=== PATIENT | male | born 1960 | race Two or more races ===

== ENCOUNTER 2024-09-25 09:30 | Outpatient (RCR) | payer MEDICARE, SELFPAY ==
--- NOTE | 2024-09-04 11:12 | PT.OIERPT ---
PT OP Initial Eval Patient Information Outpatient Physical Therapy Treatment Date: 09/04/24 Visit Reasons: Cervicalgia Medical Diagnosis: M54.2 Treatment Dx #1: neck pain Start of Care: 09/04/24 Date of Onset: 5 months ago Smoking Status Smoking Status: Never smoker Initial Assessment Subjective: Pt is 64 yr old male who reports neck pain x5 months. Increased pain with turning head to the R it feels stiff and pain is worse at night. 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 Pt would benefit from skilled therapy to reduce pain and has fair rehab potential. Eval followed by HEP printout. Short Term and Security And Privacy Consultant Goals 1. Ind with HEP 2. Decreased TTP of R levator scap mm from mod to none 3. Improved cervical rotation to the R to at least 75% without pain 4. Tolerate work duties x4 hrs with <=3/10 pain Treatment Plan 90 day POC ? 1. Manual therapy ? 2. Therex ? 3. Modalities as indicated, moist heat, ice, estim, mechanical traction Frequency and Duration: 1-2x a week for 12 visits plus evaluation Certification Dates: 09/04/24 to 12/04/24 Procedure Charges OP PT Eval Mod Complex 30 minutes: Yes
--- NOTE | 2024-09-10 14:27 | PT.ODAYNRPT ---
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
--- NOTE | 2024-09-17 09:49 | PT.ODAYNRPT ---
PT Outpatient Daily Note OP Daily Note Outpatient Physical Therapy Treatment Date: 09/17/24 Visit Reasons: Cervicalgia Subjective: Pt reports neck felt better after he left PT but then after doing his regular activities symptoms aggravate. Objective: Please see flow sheet for ther ex list. Assessment: Performed STM pt tolerated well. Plan: Continue with pOC. Length of Time (minutes) of Treatment: 30 Minutes RENTAL CLERK TOOL AND EQUIPMENT Service Modifier Method I: Divide the number of min of care provided by the RENTAL CLERK TOOL AND EQUIPMENT/WORKFORCE PLANNING ANALYST by the total min of care provided then multiply by 100. If greater than 11 percent modifier is required. Method II: Divide the total time of care provided to patient by 10 (round to the nearest whole number) and add 1 min. to set the minimum time requirement. If treatment total was 60 min., then 10% of 6 min PT CQ modifier applied: CQ Modifier applied Procedure Charges Therapeutic Exercise 30 minutes: Yes
--- NOTE | 2024-09-25 10:25 | PTNOTE_ITS ---
PT Outpatient Daily Note OP Daily Note Outpatient Physical Therapy Treatment Date: 09/25/24 Visit Reasons: Cervicalgia Subjective: Pt reports neck is progressing but slowly, pt notices he can sleep better now with less neck pain less tossing and turning. Objective: Please see flow sheet for ther ex list. Assessment: Pt tolerated STM with no complaints, no TTP. Plan: Progress as tolerated. Length of Time (minutes) of Treatment: 30 Minutes RETAIL RESET MERCHANDISER Service Modifier Method I: Divide the number of min of care provided by the RETAIL RESET MERCHANDISER/DIVYA by the total min of care provided then multiply by 100. If greater than 11 percent modifier is required. Method II: Divide the total time of care provided to patient by 10 (round to the nearest whole number) and add 1 min. to set the minimum time requirement. If treatment total was 60 min., then 10% of 6 min PT CQ modifier applied: CQ Modifier applied Procedure Charges Therapeutic Exercise 30 minutes: Yes
== END 2024-09-29 23:59 | disposition home or self-care (01) ==
LOC: CPTX 09:30
PROVIDERS: PCP Physician Assistant Medical; Referring Provider Physician Assistant Medical; Visit Provider Physician Assistant Medical
DX: M54.2 Cervicalgia (principal); I10 Essential (primary) hypertension; E11.9 Type 2 diabetes mellitus without complications
CPT/HCPCS: 97110; 97162

== ENCOUNTER 2024-10-30 08:00 | Outpatient (RCR) | payer MEDICARE, SELFPAY ==
--- NOTE | 2024-10-06 09:16 | PT.ODAYNRPT ---
PT Outpatient Daily Note OP Daily Note Outpatient Physical Therapy Treatment Date: 10/06/24 Visit Reasons: neck pain Subjective: Pt reports neck has been feeling better, notices he is sleeping better and can turn head with less difficulty when driving. Objective: Please see flow sheet for ther ex list. Assessment: Pt presents in clinic with improved symptoms allowing for intervention progression. Plan: Continue with pOC. Length of Time (minutes) of Treatment: 30 Minutes Procedure Charges Therapeutic Exercise 30 minutes: Yes
--- NOTE | 2024-10-08 08:49 | PT.ODAYNRPT ---
PT Outpatient Daily Note OP Daily Note Outpatient Physical Therapy Treatment Date: 10/08/24 Visit Reasons: neck pain Subjective: Pt reports he is sleeping better and notices he can move his neck better., Objective: Please see flow sheet for ther ex list. Assessment: Progressing interventions as tolerated, report of symptom improvement allowing for progression of interventions. Plan: Continue with pOC. Length of Time (minutes) of Treatment: 30 Minutes Procedure Charges Therapeutic Exercise 30 minutes: Yes
--- NOTE | 2024-10-15 08:33 | PT.ODAYNRPT ---
PT Outpatient Daily Note OP Daily Note Outpatient Physical Therapy Treatment Date: 10/15/24 Visit Reasons: neck pain Subjective: [place] a sharp pain while working when he looked down this weekend Objective: See F/S for therex Mechanical traction C/S x7' at 14 lbs MHP x5' C/S Assessment: Good demo of chin tucks and good response to traction Plan: Continue per POC Length of Time (minutes) of Treatment: 30 Minutes Procedure Charges Therapeutic Exercise 30 minutes: Yes
--- NOTE | 2024-10-17 15:31 | PT.ODAYNRPT ---
PT Outpatient Daily Note OP Daily Note Outpatient Physical Therapy Treatment Date: 10/17/24 Visit Reasons: neck pain Subjective: Pt reports neck is better the days he comes into therapy but when looking down or after work notices pain is aggravated. Objective: Please see flow sheet for ther ex list. Assessment: Pt presents in clinic with c/o neck pain, slow progress with interventions due to pt pain response. Plan: Continue with poC. Length of Time (minutes) of Treatment: 30 Minutes Procedure Charges Therapeutic Exercise 30 minutes: Yes
--- NOTE | 2024-10-22 09:05 | PT.ODAYNRPT ---
PT Outpatient Daily Note OP Daily Note Outpatient Physical Therapy Treatment Date: 10/22/24 Visit Reasons: neck pain Subjective: Pt reports neck is doing better, [place] and had some pain with looking down but pain did not linger. Objective: Please see flow sheet for ther ex list. Assessment: Pt reports progress with neck symptoms allowing for interventions progression. Plan: Continue with poC. Length of Time (minutes) of Treatment: 30 Minutes Procedure Charges Therapeutic Exercise 30 minutes: Yes
--- NOTE | 2024-10-28 08:47 | PT.ODAYNRPT ---
PT Outpatient Daily Note OP Daily Note Outpatient Physical Therapy Treatment Date: 10/28/24 Visit Reasons: neck pain Subjective: Pt reports neck is doing ok, feels about the same. Objective: Please see flow sheet for ther ex list. Assessment: Pt responds to mechanical traction with decrease c/o pain of c/s. Plan: Pt has 3 visits remaining. Length of Time (minutes) of Treatment: 30 Minutes Procedure Charges Therapeutic Exercise 30 minutes: Yes
--- NOTE | 2024-10-30 09:09 | PT.ODAYNRPT ---
PT Outpatient Daily Note OP Daily Note Outpatient Physical Therapy Treatment Date: 10/30/24 Visit Reasons: neck pain Subjective: Overall less neck pain but it feels tight and he hears crunching when he turns the head Objective: See F/S for therex Mechanical traction C/S x7' at 14 lbs MHP x5' C/S MT: STM suboccipitals x5' Assessment: Good demo of chin tucks and good response to traction Plan: Continue per POC Length of Time (minutes) of Treatment: 30 Minutes Procedure Charges Therapeutic Exercise 30 minutes: Yes
== END 2024-10-30 23:59 | disposition home or self-care (01) ==
LOC: CPTX 08:00
PROVIDERS: PCP Physician Assistant Medical; Referring Provider Physician Assistant Medical; Visit Provider Physician Assistant Medical
DX: M54.2 Cervicalgia (principal); I10 Essential (primary) hypertension; E11.9 Type 2 diabetes mellitus without complications
CPT/HCPCS: 97110

== ENCOUNTER 2024-11-05 08:00 | Outpatient (RCR) | payer MEDICARE, SELFPAY ==
--- NOTE | 2024-11-03 10:47 | PT.ODAYNRPT ---
PT Outpatient Daily Note OP Daily Note Outpatient Physical Therapy Treatment Date: 11/03/24 Visit Reasons: Neck pain Subjective: Overall less neck pain but it feels tight and he hears crunching when he turns the head Objective: See F/S for therex Mechanical traction C/S x7' at 14 lbs MHP x5' C/S Assessment: Good demo of chin tucks and good response to traction Plan: REassess Length of Time (minutes) of Treatment: 30 Minutes Procedure Charges Therapeutic Exercise 30 minutes: Yes
--- NOTE | 2024-11-05 08:42 | PT.ODAYNRPT ---
PT Outpatient Daily Note OP Daily Note Outpatient Physical Therapy Treatment Date: 11/05/24 Visit Reasons: Neck pain Subjective: Pt reports neck pain has reduced and notices the mobility in his neck has improved. Objective: Please see flow sheet for ther ex list. Assessment: Pt presents in clinic with improved pain and c/s ROM WNL. At this time pt has completed 12/12 visits and will be discharged to continue with HEP independently. Plan: DC Length of Time (minutes) of Treatment: 30 Minutes Procedure Charges Therapeutic Exercise 30 minutes: Yes
--- NOTE | 2024-11-06 11:44 | PTNOTE_ITS ---
PT OP Progress/Discharge Note Date of Service: 11/06/24 Progress Note/DC Note Progress Note/Discharge Note: DC Note Patient Information Visit Reasons: Neck pain Service Continue Service or Discharge: Discharge Discharge Date: 11/06/24 Status Subjective: See LEARNING DISABLED TEACHER documentation Objective: Based on his last visit with me: C/S rotation: B rotation: 75% of full TTP: min to none of C/S paraspinals and R levator scap mm No charges, no Rx, this is a D/C note since Pt was treated by Cintia Clayton PTA for his last visit. Assessment: Pt attended 12/12 Rx sessions with good progress with therapy goals. He has decreased TTP of R levator scap mm from mod to min which almost meets the goal of no TTP. He has improved C/S rotation to the R to 75% with variable pain depending on the day. He is tolerating work duties x4 hrs with less neck pain to meet that goal. Plan: D/C with HEP
== END 2024-11-30 23:59 | disposition home or self-care (01) ==
LOC: CPTX 08:00
PROVIDERS: PCP Physician Assistant Medical; Referring Provider Physician Assistant Medical; Visit Provider Physician Assistant Medical
DX: M54.2 Cervicalgia (principal); I10 Essential (primary) hypertension; E11.9 Type 2 diabetes mellitus without complications
CPT/HCPCS: 97110

== ENCOUNTER 2024-12-05 08:50 | Day surgery (SDC) | payer MEDICARE, SELFPAY ==
--- NOTE | 2024-12-04 07:00 | EKG_ITS ---
[facility] Test Date: 2024-12-04 Pat Name: MOISES FAIRBANKS Department: Room: - Gender: Male Brush Polisher: KENDRA : 1960 Requested By: Juan Antonio Carlin Order Number: [id number] Reading MD: Juan Antonio Carlin Measurements Intervals [place] Rate: 83 P: 24 [place]: 179 QRS: -55 QRSD: 105 T: 3 QT: 357 QTc: 420 Interpretive Statements SINUS RHYTHM LEFT ANTERIOR FASCICULAR BLOCK [QRS AXIS <= -45, QR IN I, RS IN II] POSSIBLE ANTERIOR MYOCARDIAL INFARCTION , PROBABLY OLD [30 ms Q WAVE IN V3/V4, OR R < 0.2 mV IN V4] Compared to ECG 05/05/2020 14:39:33 No significant changes /store/S0/[id number].pdf
[2024-12-04 07:13] VITALS: BMI 33.8
[2024-12-04 09:07] LABS: Collection Type, Urine Clean Catch
[2024-12-04 09:33] LABS: Alanine Aminotransferase 24 U/L (10-49); Albumin, Serum 4.7 gm/dL (3.4-4.8); Albumin/Globulin Ratio 1.7 (1.2-2.2); Alkaline Phosphatase 109 U/L (46-116); Anion Gap 11 (7-16); Aspartate Amino Transferase 29 U/L (0-34); BUN/Creatinine Ratio 11 Ratio (12-20); Bilirubin,Total 0.4 mg/dL (0.3-1.2); Blood Urea Nitrogen 9 mg/dL (9-23); Calcium 10.1 mg/dL (8.3-10.6); Calcium (Corrected) 10.1 mg/dL (8.5-10.1); Carbon Dioxide 25.8 mMol/L (20.0-31.0); Chloride 106 mMol/L (98-107); Creatinine (Component) 0.8 mg/dL (0.6-1.3); Estimated Creatinine Clearance 85.2 mL/min (>60); Globulin 2.8 gm/dL (2.3-3.5); Glucose 142 mg/dL (74-106); Osmolality,Calculated 285 (275-295); Potassium 4.3 mMol/L (3.4-5.1); Sodium 143 mMol/L (136-145); Total Protein 7.5 gm/dL (5.7-8.2); eGFR > 60 See Note
[2024-12-04 09:51] LABS: Basophils # (Auto) 0.1 Thou/mm3 (0.0-0.2); Basophils % (Auto) 1 % (0-2.5); Eosinophils # (Auto) 0.2 Thou/mm3 (0.0-0.5); Eosinophils % (Auto) 3 % (0-10); Hematocrit 46.4 % (41.0-53.0); Hemoglobin 15.8 g/dL (13.5-16.0); Immature Granulocytes Auto 0.06 Thou/mm3 (0.00-0.00); Lymphocytes # (Auto) 2.8 Thou/mm3 (1.0-4.8); Lymphocytes % (Auto) 35 % (10-50); Mean Corpuscular HGB Conc 34.1 g/dl (31.0-37.0); Mean Corpuscular Hemoglobin 32.8 pg (25.0-35.0); Mean Corpuscular Volume 97 fL (80-100); Monocytes # (Auto) 0.9 Thou/mm3 (0.0-0.8); Monocytes % (Auto) 11 % (0-12); Neutrophils # (Auto) 3.9 Thou/mm3 (1.8-7.7); Neutrophils % (Auto) 49 % (37-80); Nucleated Red Blood Cell # 0.00 Thou/mm3 (0.00-0.00); Nucleated Red Blood Cell % 0 /100 WBC (0); Platelet Count 213 Thou/mm3 (140-440); RDW Standard Deviation 43.4 fL (35.1-43.9); Red Blood Count 4.81 Miln/mm3 (4.50-5.90); White Blood Count 7.9 Thou/mm3 (3.8-10.6)
[2024-12-04 09:54] LABS: Bilirubin,Urine Negative (Negative); Blood,Urine Negative (Negative); Clarity,Urine Clear (Clear/Hazy); Color,Urine Yellow (Lt Yel-Yel); Glucose, Urine 4+ (Negative); Ketones,Urine Negative (Negative); Leukocyte Esterase,Urine Negative (Negative); Nitrite,Urine Negative (Negative); PH,Urine 6.0 (5.0-7.0); Protein,Urine Trace (Neg - Trace); RBC,Urine 2 /hpf (0-3); Specific Gravity,Urine 1.027 (1.001-1.035); Squamous Epithelial Cell,Urine < 1 /hpf (0-5); Urobilinogen,Urine Negative mg/dL (0.0-1.0); WBC,Urine 1 /hpf (0-5)
--- NOTE | 2024-12-04 13:44 | SUR.PREOP ---
Cardiac records and history reviewed with Dr Diaz.
--- NOTE | 2024-12-04 16:04 | ESHP_ITS ---
RE: MOISES FAIRBANKS : 1960 DATE OF ADMISSION: 12/05/2024 HISTORY OF PRESENT ILLNESS: A 64-year-old male who was referred to me with elevated PSA of 11.0, nocturia x2. Urinary flow is fair. No burning in the urine. No blood in the urine. No history of kidney stones. PAST SURGICAL HISTORY: Included cholecystectomy. SOCIAL HISTORY: The patient has 3 children. ALLERGIES: NONE KNOWN. PAST MEDICAL HISTORY: He has a history of diabetes mellitus and history of hypertension. HOME MEDICATIONS: He takes; 1. Metformin. 2. Jardiance. 3. Mounjaro. 4. Cholesterol. 5. Aspirin. 6. Losartan. PHYSICAL EXAMINATION: HEENT: Normal. NECK: Supple. LUNGS: Clear. CARDIOVASCULAR: Heart sounds are normal. ABDOMEN: Soft without any organomegaly. No guarding. No rigidity. EXTREMITIES: Normal. GENITOURINARY: Phallus is normal. Testes are down in scrotum. RECTAL: Revealed moderately enlarged smooth prostate without any nodules. IMPRESSION: 1. Prostatism. 2. Prostatic obstruction. 3. Elevated prostate-specific antigen of 11.0. 4. History of diabetes mellitus. 5. History of hypertension. PLAN: Cystoscopy and transrectal prostatic ultrasound with ultrasound-guided prostatic needle biopsy. Planned procedure, risks and complications have been discussed with the patient. The patient has understood them and agreed to proceed. Thank you very much for your kind referral. cc: [facility] DT: 14:48:31 TT: 16:02:00 Ref: [id number] - TID: [id number]
[2024-12-05 09:11] VITALS: BP 150/80; PULSE 71; RESP 20; TEMP 36.3; O2SAT 95; BMI 33.1
--- NOTE | 2024-12-05 09:35 | SUR.PREOP ---
Patient expressed gratitude for prayer before their procedure.
[2024-12-05 10:54] VITALS: BP 117/83; PULSE 68; RESP 14; TEMP 36.6; O2SAT 95
--- NOTE | 2024-12-05 10:54 | SUR.PHASEII ---
pt received from OR in recovery bay 2. pt awake and alert, breathing unlabored on nc 4l. v/s stable. report received Dr. Ugarte and Jaun SEAY.
[2024-12-05 11:00] VITALS: BP 122/72; PULSE 66; RESP 20; TEMP 36.5; O2SAT 95
--- NOTE | 2024-12-05 11:00 | XR_ITS ---
Examination: Transrectal prostate sonography Date and time: December 05, 2024 1031 hours INDICATIONS: Prostate biopsy by physician in the OR today TECHNIQUE AND FINDINGS: Transrectal sonographic images of the prostate for prostate biopsies by physician Prostate volume 57.42 cc IMPRESSION: Transrectal sonographic images of the prostate for prostate biopsies by physician
[2024-12-05 11:05] VITALS: BP 120/68; PULSE 67; RESP 20; TEMP 36.5; O2SAT 94
[2024-12-05 11:10] VITALS: BP 116/68; PULSE 64; RESP 20; TEMP 36.5; O2SAT 94
[2024-12-05 11:25] VITALS: BP 130/68; PULSE 62; RESP 20; TEMP 36.4; O2SAT 95
--- NOTE | 2024-12-05 11:35 | SUR.PHASEII ---
pt awake and alert, breathing unlabored on room air. v/s stable. pt able to ambulate to wheelchair with steady gait. d/c instructions given with Idania in room, all questions answered. pt d/c via wheelchair with all belongings.
--- NOTE | 2024-12-05 13:10 | ESOP_ITS ---
RE: MOISES FAIRBANKS : 1960 DATE OF OPERATION: 12/05/2024 PREOPERATIVE DIAGNOSES: Prostatism, prostatic obstruction, elevated PSA of 11.0. POSTOPERATIVE DIAGNOSES: Prostatism, prostatic obstruction, elevated PSA of 11.0. PROCEDURES PERFORMED: Cystoscopy, urethral dilatation, transrectal prostatic ultrasound with ultrasound-guided prostatic needle biopsy. ANESTHESIA: Monitored anesthesia by Dr. Ugarte. INDICATION: The patient is a 64-year-old male who was referred to sc with history of elevated PSA of 11.0. He has prostatism, nocturia x2 with slowing urinary stream. Rectally, he has a moderately sized prostate without any hard nodules. DESCRIPTION OF PROCEDURE: The patient was now scheduled to have cystoscopy and transrectal prostatic ultrasound with ultrasound-guided prostatic needle biopsy. Planned procedure, risks and complications have been discussed with the patient. The patient understood them and agreed to proceed. After the patient was brought to the operating table under adequate monitored anesthesia in dorsal lithotomy position, parts were prepped and draped in the usual fashion. Cystoscopy was then carried out, which revealed adequate urethral meatus. There is a mild bulbar urethral stricture, which was dilated. Prostatic urethra revealed moderately enlarged bilobed prostate. Left lobe is larger than right. Scope was introduced into the bladder. Residual urine is 5 ounces, yellow and clear and was sent for culture and sensitivity examination. There are no intravesical stones or tumors. Ureteral orifices are found to be normal in position close to the bladder neck. Scope was withdrawn. Urethra was dilated. The patient was then turned in left lateral position. Transrectal prostatic ultrasound was carried out. Biopsies were obtained from both lobes using ultrasound guidance. Prostatic volume was measured at 57.42 cubic cm. The patient tolerated the entire procedure well and left the room in good condition. DT: 11::45 TT: 13:09:00 Ref: [id number] - TID: [id number]
== END 2024-12-05 11:35 | disposition home or self-care (01) ==
PROVIDERS: Anesthesiology; PCP Family Medicine; Referring Provider Surgery; Visit Provider Surgery
PROC: 0TJB8ZZ Inspection of Bladder, Via Natural or Artificial Opening Endoscopic (ICD-10-PCS; CPT 52000; principal; 2024-12-05 11:00)
PROC: (CPT 55700; 2024-12-05 11:00)
DX: N40.1 Benign prostatic hyperplasia with lower urinary tract symptoms (principal); N13.8 Other obstructive and reflux uropathy; R35.1 Nocturia; R39.198 Other difficulties with micturition; Z01.810 Encounter for preprocedural cardiovascular examination; E11.9 Type 2 diabetes mellitus without complications; I10 Essential (primary) hypertension; Z90.49 Acquired absence of other specified parts of digestive tract; Z79.84 Long term (current) use of oral hypoglycemic drugs; Z79.899 Other long term (current) drug therapy; Z79.82 Long term (current) use of aspirin
CPT/HCPCS: 52281; 55700; 36415; 76942; 80053; 81001; 85025; 93005; A4217; A4649; J0694; J2250; J2704; J3010; J3490

== ENCOUNTER 2024-12-05 22:57 | Emergency (ER) | payer MEDICARE, SELFPAY ==
[2024-12-05 23:00] VITALS: BP 183/95; PULSE 99; RESP 17; TEMP 38.1; O2SAT 95; BMI 32.9
[2024-12-05 23:04] VITALS: PULSE 96; O2SAT 99
--- NOTE | 2024-12-05 23:31 | PD.EDRME ---
Rapid Medical Screening Exam [facility] Arrival date/time: 12/05/24 22:57 64M with history of HTN and DM presents to ED with 1 day of fevers/chills. Patient had a prostate biopsy today. Vital signs: Vital Signs Temperature 100.5 F H 12/05/24 23:00 Pulse Rate 99 12/05/24 23:00 Respiratory Rate 17 12/05/24 23:00 Blood Pressure 183/95 H 12/05/24 23:00 Pulse Oximetry (%) 95 12/05/24 23:00 Oxygen Delivery Method Room Air 12/05/24 23:00
[2024-12-05 23:51] LABS: Lactate (Lactic Acid) 1.1 mMol/L (0.4-2.0)
[2024-12-05 23:59] LABS: Basophils # (Auto) 0.0 Thou/mm3 (0.0-0.2); Basophils % (Auto) 0 % (0-2.5); Eosinophils # (Auto) 0.1 Thou/mm3 (0.0-0.5); Eosinophils % (Auto) 1 % (0-10); Hematocrit 41.5 % (41.0-53.0); Hemoglobin 14.0 g/dL (13.5-16.0); Immature Granulocytes Auto 0.04 Thou/mm3 (0.00-0.00); Lymphocytes # (Auto) 0.7 Thou/mm3 (1.0-4.8); Lymphocytes % (Auto) 5 % (10-50); Mean Corpuscular HGB Conc 33.7 g/dl (31.0-37.0); Mean Corpuscular Hemoglobin 32.6 pg (25.0-35.0); Mean Corpuscular Volume 97 fL (80-100); Monocytes # (Auto) 0.3 Thou/mm3 (0.0-0.8); Monocytes % (Auto) 2 % (0-12); Neutrophils # (Auto) 11.1 Thou/mm3 (1.8-7.7); Neutrophils % (Auto) 91 % (37-80); Nucleated Red Blood Cell # 0.00 Thou/mm3 (0.00-0.00); Nucleated Red Blood Cell % 0 /100 WBC (0); Platelet Count 152 Thou/mm3 (140-440); RDW Standard Deviation 44.1 fL (35.1-43.9); Red Blood Count 4.30 Miln/mm3 (4.50-5.90); White Blood Count 12.2 Thou/mm3 (3.8-10.6)
[2024-12-06 00:14] LABS: Collection Type, Urine Clean Catch; Squamous Epithelial Cell,Urine 0 /hpf (0-5)
[2024-12-06] MEDS: NAPROXEN 250 MG TABLET 500 MG PO (00:14)
[2024-12-06 00:20] LABS: Alanine Aminotransferase 26 U/L (10-49); Albumin, Serum 4.0 gm/dL (3.4-4.8); Albumin/Globulin Ratio 1.5 (1.2-2.2); Alkaline Phosphatase 74 U/L (46-116); Anion Gap 12 (7-16); Aspartate Amino Transferase 29 U/L (0-34); BUN/Creatinine Ratio 8 Ratio (12-20); Bilirubin,Total 0.9 mg/dL (0.3-1.2); Blood Urea Nitrogen 6 mg/dL (9-23); Calcium 9.1 mg/dL (8.3-10.6); Calcium (Corrected) 9.1 mg/dL (8.5-10.1); Carbon Dioxide 22.6 mMol/L (20.0-31.0); Chloride 105 mMol/L (98-107); Creatinine (Component) 0.8 mg/dL (0.6-1.3); Estimated Creatinine Clearance 84.0 mL/min (>60); Globulin 2.6 gm/dL (2.3-3.5); Glucose 126 mg/dL (74-106); Osmolality,Calculated 279 (275-295); Potassium 3.5 mMol/L (3.4-5.1); Procalcitonin 0.45 ng/ml (0.0-0.49); Sodium 140 mMol/L (136-145); Total Protein 6.6 gm/dL (5.7-8.2); eGFR > 60 See Note
[2024-12-06 00:27] LABS: Bilirubin,Urine Negative (Negative); Blood,Urine 3+ (Negative); Clarity,Urine Turbid (Clear/Hazy); Glucose, Urine 4+ (Negative); Ketones,Urine 2+ (Negative); Leukocyte Esterase,Urine Negative (Negative); Nitrite,Urine Negative (Negative); PH,Urine 6.5 (5.0-7.0); Protein,Urine 1+ (Neg - Trace); RBC,Urine 1991 /hpf (0-3); Specific Gravity,Urine 1.028 (1.001-1.035); Urobilinogen,Urine Negative mg/dL (0.0-1.0); WBC,Urine 28 /hpf (0-5)
[2024-12-06 00:28] LABS: Color,Urine Lt-Orange (Lt Yel-Yel); Culture Indicated,Urine Yes
--- NOTE | 2024-12-06 02:20 | PC.NURSE ---
PT INFORMED ME THAT HE IS LEAVING, HE FEELS BETTER NOW.
== END 2024-12-06 02:21 | disposition left against medical advice (07) ==
PROVIDERS: Physician Assistant; Emergency Provider Emergency Medicine; PCP Physician Assistant
DX: R50.9 Fever, unspecified (principal); I10 Essential (primary) hypertension; E11.9 Type 2 diabetes mellitus without complications; Z53.29 Procedure and treatment not carried out because of patient's decision for other reasons
CPT/HCPCS: 36415; 80053; 81001; 83605; 84145; 85025; 87086; 87400; 87811; 99283; A9270

== ENCOUNTER 2024-12-06 15:41 | Inpatient (IN) | payer MEDICARE, SELFPAY ==
[2024-12-06] VITALS (8 sets, daily range): BP systolic 132–157; BP diastolic 72–92; PULSE 102–133; RESP 19–35; TEMP 37.1–40.5; O2SAT 95–96; BMI 32.9
--- NOTE | 2024-12-06 17:22 | PD.EDRME ---
Rapid Medical Screening Exam [facility] Arrival date/time: 12/06/24 15:41 This is a 64M with history of HTN and DM presents to ED with 2 day of fevers/chills/feeling shaky. Patient had a prostate biopsy 2 days ago. Pt states he stopped drinking on December 03, 2024. Patient states he was an alcoholic. Patient had multiple shots a day along with multiple beers a day. Patient states that the only reason he stopped is because he had to have surgery. Patient now says that he would like to stop drinking. Patient states he feels very shaky he was having some chest pain and shortness of breath. Patient feels anxious. Patient also has a history of high blood pressure, diabetes, hyperlipidemia. I have greeted and performed a focused initial assessment of this patient. Initial appropriate labs ordered at this time. A comprehensive ED assessment and evaluation of the patient and analysis of all test and completion of medical decision making process will be conducted by additional ED provider. Chief Complaint: General Adult/Misc Complain Time Seen by Provider: 12/06/24 16:17 Vital signs: Vital Signs Temperature 99.3 F 12/06/24 16:02 Pulse Rate 125 H 12/06/24 16:02 Respiratory Rate 19 12/06/24 16:02 Blood Pressure 132/78 H 12/06/24 16:02 Pulse Oximetry (%) 95 12/06/24 16:02 Oxygen Delivery Method Room Air 12/06/24 16:02
--- NOTE | 2024-12-06 17:25 | XR_ITS ---
Examination: PA lateral chest 2 views Technique: Upright PA lateral chest 2 views Date and time: December 06, 2024, 1744 hrs., Comparison May 05, 2020. Indications: Fever chills beginning 2 days ago. Findings: Minimal prominence left ventricle. Mild prominent central pulmonary vasculature. No lobar pneumonia or pulmonary edema. Impression: No lobar pneumonia or pulmonary edema.
--- NOTE | 2024-12-06 17:25 | EKG_ITS ---
[facility] ([facility] Test Date: 2024-12-06 Pat Name: MOISES FAIRBANKS Department: Room: - Gender: Male Home Specialist: : 1960 Requested By: Kim Dinero Order Number: [id number] Reading MD: Kim Dinero Measurements Intervals [place] Rate: 124 P: 22 [place]: 163 QRS: -65 QRSD: 90 T: 29 QT: 323 QTc: 465 Interpretive Statements SINUS TACHYCARDIA LEFT ANTERIOR FASCICULAR BLOCK [QRS AXIS <= -45, QR IN I, RS IN II] POSSIBLE ANTERIOR MYOCARDIAL INFARCTION , PROBABLY OLD [30 ms Q WAVE IN V3/V4, OR R < 0.2 mV IN V4] Compared to ECG 12/04/2024 08:00:24 Sinus rhythm no longer present Myocardial infarct finding still present /store/S0/[id number]/[id number]
[2024-12-06 17:49] LABS: Basophils # (Auto) 0.0 Thou/mm3 (0.0-0.2); Basophils % (Auto) 0 % (0-2.5); Eosinophils # (Auto) 0.0 Thou/mm3 (0.0-0.5); Eosinophils % (Auto) 0 % (0-10); Hematocrit 45.8 % (41.0-53.0); Hemoglobin 15.6 g/dL (13.5-16.0); Immature Granulocytes Auto 0.04 Thou/mm3 (0.00-0.00); Lymphocytes # (Auto) 0.4 Thou/mm3 (1.0-4.8); Lymphocytes % (Auto) 5 % (10-50); Mean Corpuscular HGB Conc 34.1 g/dl (31.0-37.0); Mean Corpuscular Hemoglobin 32.8 pg (25.0-35.0); Mean Corpuscular Volume 96 fL (80-100); Monocytes # (Auto) 0.5 Thou/mm3 (0.0-0.8); Monocytes % (Auto) 5 % (0-12); Neutrophils # (Auto) 8.5 Thou/mm3 (1.8-7.7); Neutrophils % (Auto) 90 % (37-80); Nucleated Red Blood Cell # 0.00 Thou/mm3 (0.00-0.00); Nucleated Red Blood Cell % 0 /100 WBC (0); Platelet Count 148 Thou/mm3 (140-440); RDW Standard Deviation 44.9 fL (35.1-43.9); Red Blood Count 4.75 Miln/mm3 (4.50-5.90); White Blood Count 9.5 Thou/mm3 (3.8-10.6)
[2024-12-06 18:05] LABS: B-Type Natriuretic Peptide 129 pg/mL (0-100)
[2024-12-06 18:06] LABS: Alanine Aminotransferase 28 U/L (10-49); Albumin, Serum 4.6 gm/dL (3.4-4.8); Albumin/Globulin Ratio 1.5 (1.2-2.2); Alkaline Phosphatase 83 U/L (46-116); Anion Gap 12 (7-16); Aspartate Amino Transferase 28 U/L (0-34); BUN/Creatinine Ratio 5 Ratio (12-20); Bilirubin,Total 0.8 mg/dL (0.3-1.2); Blood Urea Nitrogen 5 mg/dL (9-23); Calcium 10.0 mg/dL (8.3-10.6); Calcium (Corrected) 10.0 mg/dL (8.5-10.1); Carbon Dioxide 23.8 mMol/L (20.0-31.0); Chloride 103 mMol/L (98-107); Creatinine (Component) 1.0 mg/dL (0.6-1.3); Estimated Creatinine Clearance 67.2 mL/min (>60); Globulin 3.0 gm/dL (2.3-3.5); Glucose 140 mg/dL (74-106); Osmolality,Calculated 276 (275-295); Potassium 3.8 mMol/L (3.4-5.1); Sodium 139 mMol/L (136-145); Total Protein 7.6 gm/dL (5.7-8.2); Troponin I < 0.002 ng/mL (0.0-0.045); eGFR > 60 See Note
[2024-12-06 18:11] LABS: Collection Type, Urine Voided
--- NOTE | 2024-12-06 18:23 | EDNOTE_ITS ---
ED General RME/HPI General Chief complaint: General Adult/Misc Complain Stated complaint: SHAKING TODAY, SEEN LAST NIGHT AND LEFT AMA Time Seen by Provider: 12/06/24 16:17 Arrival date/time: 12/06/24 15:41 RME / HPI RME / HPI narrative: 12/06/24 15:41 This is a 64M with history of HTN and DM presents to ED with 2 day of fevers/chills/feeling shaky. Patient had a prostate biopsy 2 days ago. Pt states he stopped drinking on December 03, 2024. Patient states he was an alcoholic. Patient had multiple shots a day along with multiple beers a day. Patient states that the only reason he stopped is because he had to have surgery. Patient now says that he would like to stop drinking. Patient states he feels very shaky he was having some chest pain and shortness of breath. Patient feels anxious. Patient also has a history of high blood pressure, diabetes, hyperlipidemia. I have greeted and performed a focused initial assessment of this patient. Initial appropriate labs ordered at this time. A comprehensive ED assessment a nd evaluation of the patient and analysis of all test and completion of medical decision making process will be conducted by additional ED provider. DR. CARRIZALES MAIN ED EVALUATION: 64 y/o male with Hx of Heavy Alcohol Use, BPH, HTN, Type II DM, and recent Prostate Biopsy presents to ED c/o all over shaking, chills, and fever x 2 days. Patient underwent biopsy 2 days ago and reports not consuming alcohol over the last 3 days. Patient was seen in ED last night, but left prior to receiving results. He received a call from his provider alerting him of an elevated WBC and advised patient to return to ED. Patient also admits that he did not take his antibiotics as prescribed. No other concerns or complaints expressed at this time. Related Data Home Medications ?Medication ?Instructions ?Recorded ?Confirmed aspirin 81 mg tablet 81 mg PO QDAY 05/07/2012/06 losartan 50 mg tablet 50 mg PO QDAY 05/07/2012/06 metformin 1,000 mg tablet 1,000 mg PO BID 05/07/2009/24 atorvastatin 20 mg tablet 20 mg PO DAILY 12/04/24 0909/24 empagliflozin 25 mg tablet 25 mg PO DAILY 12/04/2409/24 (Jardiance) tirzepatide 5 mg/0.5 mL 5 mg subcut QWEEK 12/04/24 0 12/06/24 subcutaneous pen injector (Sylvester) Previous Rx's ?Medication ?Instructions ?Recorded qdpovpqy-onc-zmrhy acid 0.4 1 tab PO QDAY 1 month #30 tabs 12/09/24 mg-lycopene 300 mcg-lutein 250 mcg tablet (Complete Multivitamin Adult 50 Plus) Allergies Allergy/AdvReac Type Severity Reaction Status Date / Time No Known Allergies Allergy Unknown Verified 12/06/24 15:46 Review of Systems Review of Systems Systems Reviewed: All systems reviewed, normal except as documented Past Medical History Past Medical History CARDIAC: Positive Cardiac Disorders, Myocardial Infarction (5 yrs ago), Hypercholesterolemia and Hypertension MUSCULOSKELETAL: Positive Musculoskeletal Disorders ENDOCRINE: Positive Endocrine Disorders and Diabetes Mellitus Type 2 OTHER HISTORY: Positive Hospitalization (surgery, Covid), Chicken Pox and Mumps Family History FAMILY HISTORY: Positive Family Psychiatric Problems, Family Cardiac Disorders, Family Cancer and Family Surgery Surgical History SURGICAL: Positive Cardiac Surgery, Angiogram (2019) and Abdominal Surgery Social History ALCOHOL: Current ALCOHOL FREQUENCY: 3 or More Drinks per Day ED Exam Narrative Physical exam: Generally the patient is tremulous and tachycardic but not hallucinating, eyes pupils equal round reactive to light, neck shows no bony deformity or tenderness, heart tachycardic rate with regular rhythm, lungs clear to auscultation equal bilaterally, abdomen soft nondistended nontender, skin is cool slightly moist without rash, neurologic exam shows the patient to be tremulous however [place] Coma Scale is 15. Course Course Course Narrative: CXR was ordered for determining the etiology of shortness of breath. Quality Measures none Orders Category Date Time Status Bedside COVID-19 Antigen Test NOW Care 12/06/24 22:23 Completed COVID-19 Screening Questionnaire NOW Care 12/06/24 22:22 Completed EKG (ED ONLY) *Do not use* NOW Care 12/06/24 17:25 Completed Insert IV NOW Care 12/06/24 18:28 Completed EKG (ED Only) Stat Exams 12/06/24 17:25 Draft XR chest 2V Stat Exams 12/06/24 17:25 Completed BNP [B-Type Natriuretic Peptide] Stat Lab 12/06/24 17:42 Completed Blood Culture (Lab) Stat Lab 12/06/24 20:46 Completed CBC Stat Lab 12/06/24 17:42 Completed Comprehensive Metabolic Panel Stat Lab 12/06/24 17:42 Completed Drug Screen,Urine Stat Lab 12/06/24 18:00 Completed Lactic Acid [Lactate (Lactic Acid)] Stat Lab 12/06/24 20:46 Completed Troponin I Stat Lab 12/06/24 17:42 Completed Urinalysis, C/S if Indicated Stat Lab 12/06/24 18:00 Completed Urine Culture Stat Lab 12/06/24 18:00 Completed Acetaminophen Tab [Tylenol Tab] Med 12/06/24 20:47 Discontinued 650 mg PO X1 ONE Diazepam Inj [Valium Inj] Med 12/06/24 18:23 Discontinued 10 mg IVP X1 ONE Diazepam Inj [Valium Inj] Med 12/06/24 19:28 Discontinued 10 mg IVP X1 ONE LORazepam [Ativan] Med 12/06/24 17:25 Discontinued 1 mg PO X1 ONE PHENobarbital Inj 130 mg Med 12/06/24 20:42 Discontinued Sodium Chloride 0.9% Flush [NS Flush] 12 ml IVP X1 PHENobarbital Inj 130 mg Med 12/06/24 21:14 Discontinued Sodium Chloride 0.9% Flush [NS Flush] 12 ml IVP X1 Sodium Chloride 0.9% 1000 ml [Ns] 1,000 ml Med 12/06/24 20:41 Discontinued IV 999 mls/hr Sodium Chloride 0.9% 1000 ml [Ns] 1,000 ml Med 12/06/24 22:08 Discontinued IV 999 mls/hr cefTRIAXone/D5w 1gm IV premix [Rocephin/D5w 1gm IV Med 12/06/24 18:23 Discontinued premix] 1 gm in 50 ml IV X1 Vital Signs Vital signs: Vital Signs Temperature 99.3 F 12/06/24 16:02 Pulse Rate 125 H 12/06/24 16:02 Respiratory Rate 19 12/06/24 16:02 Blood Pressure 132/78 H 12/06/24 16:02 Pulse Oximetry (%) 95 12/06/24 16:02 Oxygen Delivery Method Room Air 12/06/24 16:02 Discharge Plan Plan Patient Disposition: Admit Acute Care w/in Hospital Patient condition on transfer: Stable MDM Narrative [facility] hospital course: Scribe Attestation: I, Snehal Grossman, am scribing for and in the presence of Dr. Carrizales. Provider Notation: Although this document has been carefully reviewed, there may still be some phonetic and other typographical errors. These errors are purely grammatical due to imperfections in the software program and should not be construed in any way to compromise the substance of the patient's medical care during this visit. Differential diagnosis, alcohol withdrawal, delirium tremens, bacteremia, sepsis Patient just underwent a prostate biopsy yesterday. He has been on prophylactic antibiotics. He has had shaking chills over the last 1 to 2 days. He has been off of alcohol for the last 3 days and normally drinks rather heavily on a regular every day basis according to the patient. Patient spiked a fever of 104 degrees here in the emergency room. Septic workup was initiated. Lactic acid level was not elevated. A set of blood cultures was obtained. Patient was given Rocephin 1 g IV for possible bacteremia from the prostate biopsy. Clinical Information Provided by patient Medical Records Reviewed [facility] Reviewed prior ED records from 12/05/24. Patient was seen for SHAKING. Meds/Rx Considered, not Ordered None Labs/Rad/Tests considered, not Ordered None Chronic Illness/Social Conditions which may negatively complicate care or outcome(s)-explain: ETOH/drugs/substance abuse Lab Interpretation Labs: interpreted by me and see narrative above Imaging Imaging interpretation: interpreted by me and see narrative above Radiology reports / interpretation(s): Chest X-Ray: Findings: Minimal prominence left ventricle. Mild prominent central pulmonary vasculature. No lobar pneumonia or pulmonary edema. Impression: No lobar pneumonia or pulmonary edema. Medication Administration(s) Medication Administration History Discontinued Medications Acetaminophen (Acetaminophen 325 Mg Tablet) 650 mg PO X1 ONE Stop: 12/06/24 20:48 Last Admin: 12/06/24 21:01 Dose: 650 mg Documented By: BD Acetaminophen (Acetaminophen 325 Mg Tablet) 650 mg PO Q4HR PRN PRN Reason: PAIN SCALE 1-3 (mild Stop: 01/05/25 22:59 Last Admin: 12/07/24 21:32 Dose: 650 mg Documented By: Admin: 12/07/24 12:01 Dose: 650 mg Documented By: JAMEY Al Hydrox/Mg Hydrox/Simethicone (Mg Hyd/Al Hyd/Maritza (Maalox Reg) Susp 30 Ml Udc) 30 ml PO Q4HR PRN PRN Reason: Heartburn or Upset Stomach Stop: 01/05/25 22:59 Phenobarbital Sodium 130 mg/ (Sodium Chloride 12 ml) 0 mg IVP X1 ONE Stop: 12/06/24 20:43 Last Admin: 12/06/24 20:52 Dose: 130 mg Documented By: ARIAS Phenobarbital Sodium 130 mg/ (Sodium Chloride 12 ml) 0 mg IVP X1 ONE Stop: 12/06/24 21:15 Last Admin: 12/06/24 21:19 Dose: 130 mg Documented By: BD Phenobarbital Sodium 260 mg/ (Sodium Chloride 12 ml) 0 mg IVP X1 ONE Stop: 12/07/24 03:01 Phenobarbital Sodium 130 mg/ (Sodium Chloride 12 ml) 0 mg IVP Q8H RANDA Stop: 12/21/24 10:59 Phenobarbital Sodium 130 mg/ (Sodium Chloride 12 ml) 0 mg IVP Q8HR RANDA Stop: 12/21/24 07:44 Last Admin: 12/08/24 07:25 Dose: Not Given Documented By: JULIAN Non-Admin Reason: Discontinued Phenobarbital Sodium 130 mg/ (Sodium Chloride 12 ml) 0 mg IVP Q12HR RANDA Stop: 12/21/24 08:59 Last Admin: 12/08/24 09:22 Dose: 130 mg Documented By: Admin: 12/07/24 20:46 Dose: 130 mg Documented By: Admin: 12/07/24 08:52 Dose: 130 mg Documented By: DESTINI Phenobarbital Sodium 130 mg/ (Sodium Chloride 12 ml) 0 mg IVP QDAY RANDA Stop: 12/23/24 08:59 Dextrose (Dextrose 50%-Water Inj 50 Ml Syringe) 25 ml IV Q15MIN PRN PRN Reason: BG 50-70 responsive npo pt Stop: 01/05/25 23:19 Dextrose (Dextrose 50%-Water Inj 50 Ml Syringe) 50 ml IV Q15MIN PRN PRN Reason: BG <50 OR BG <70 & pt unresponsive Stop: 01/05/25 23:19 Diazepam (Diazepam Inj 5 Mg/Ml Vial 2 Ml) 10 mg IVP X1 ONE Stop: 12/06/24 18:24 Last Admin: 12/06/24 18:32 Dose: 10 mg Documented By: VIKKI Diazepam (Diazepam Inj 5 Mg/Ml Vial 2 Ml) 10 mg IVP X1 ONE Stop: 12/06/24 19:29 Last Admin: 12/06/24 19:38 Dose: 10 mg Documented By: CARLOS Diazepam (Diazepam Inj 5 Mg/Ml Vial 2 Ml) 5 mg IVP Q1HR PRN PRN Reason: CIWA 16-19 Stop: 12/11/24 23:06 Diazepam (Diazepam Inj 5 Mg/Ml Vial 2 Ml) 5 mg IVP Q2HR PRN PRN Reason: CIWA SCORE 14- Stop: 12/11/24 23:06 Diazepam (Diazepam Inj 5 Mg/Ml Vial 2 Ml) 5 mg IVP X1 PRN PRN Reason: Breakthrough Agitation Diazepam (Diazepam Inj 5 Mg/Ml Vial 2 Ml) 10 mg IVP Q1HR PRN PRN Reason: CIWA Stop: 12/11/24 23:06 Diazepam (Diazepam Inj 5 Mg/Ml Vial 2 Ml) 20 mg IVP Q1HR PRN PRN Reason: CIWA Stop: 12/11/24 23:06 Last Admin: 12/07/24 21:08 Dose: 20 mg Documented By: JASBIR Comments: [email or web address] 21 Diazepam (Diazepam Inj 5 Mg/Ml Vial 2 Ml) 10 mg IVP Q2HR PRN PRN Reason: CIWA SCORE 14-19 Stop: 12/11/24 23:06 Diazepam (Diazepam Inj 5 Mg/Ml Vial 2 Ml) 5 mg IVP Q1HR PRN PRN Reason: CIWA 8-13 Stop: 12/11/24 23:06 Folic Acid (Folic Acid Inj 1 Mg/0.2 Ml) 1 mg IVP X1 ONE Stop: 12/06/24 23:22 Last Admin: 12/07/24 01:07 Dose: 1 mg Documented By: USMAN Folic Acid (Folic Acid 1 Mg Tablet) 1 mg PO QDAY RANDA Stop: 01/06/25 08:59 Last Admin: 12/09/24 09:00 Dose: 1 mg Documented By: Admin: 12/08/24 09:01 Dose: 1 mg Documented By: Admin: 12/07/24 08:53 Dose: 1 mg Documented By: DESTINI Glucagon (Glucagon Inj 1 Mg Vial) 1 mg IM Q15MIN PRN PRN Reason: BG <70, and no IV access Heparin Sodium (Porcine) (Heparin Sod Inj 5000 Unit/Ml Vial) 5,000 unit SC Q12HR RANDA Stop: 12/21/24 08:59 Ceftriaxone Sodium/Dextrose (Rocephin/D5w 1gm Iv Premix) 1 gm in 50 mls @ 100 mls/hr IV X1 ONE Stop: 12/06/24 18:52 Last Infusion: 12/06/24 19:26 Dose: Infused Documented By: Admin: 12/06/24 18:32 Dose: 100 mls/hr Documented By: VIKKI Sodium Chloride (Ns) 1,000 mls @ 999 mls/hr IV .Q1H1M ONE Stop: 12/06/24 21:41 Last Infusion: 12/06/24 21:59 Dose: Infused Documented By: Admin: 12/06/24 20:53 Dose: 999 mls/hr Documented By: BD Sodium Chloride (Ns) 1,000 mls @ 999 mls/hr IV .Q1H1M ONE Stop: 12/06/24 23:08 Last Infusion: 12/06/24 23:46 Dose: Infused Documented By: Admin: 12/06/24 22:19 Dose: 999 mls/hr Documented By: BD Lactated Ringer's (Lactated Ringers) 1,000 mls @ 999 mls/hr IV .Q1H1M ONE Stop: 12/07/24 00:30 Last Infusion: 12/07/24 02:02 Dose: Infused Documented By: Admin: 12/07/24 01:01 Dose: 999 mls/hr Documented By: USMAN Piperacillin Sod/Tazobactam (Sod 4.5 gm/ Sodium Chloride) 100 mls @ 200 mls/hr IV Q8HR RANDA Stop: 12/13/24 23:34 Last Admin: 12/07/24 01:26 Dose: Not Given Documented By: AD Non-Admin Reason: Discontinued Piperacillin/Tazobactam/Dextrose (Zosyn) 3.375 gm in 50 mls @ 12.5 mls/hr IV Q8H RANDA; Protocol Stop: 12/14/24 00:29 Last Admin: 12/07/24 01:08 Dose: 12.5 mls/hr Documented By: AD Thiamine HCl 500 mg/ Sodium (Chloride) 105 mls @ 210 mls/hr IV X1 ONE Stop: 12/07/24 01:14 Last Infusion: 12/07/24 01:35 Dose: Infused Documented By: Admin: 12/07/24 01:05 Dose: 210 mls/hr Documented By: AD Ceftriaxone Sodium/Dextrose (Rocephin/D5w 1gm Iv Premix) 1 gm in 50 mls @ 100 mls/hr IV QDAY RANDA Stop: 12/14/24 08:05 Last Admin: 12/09/24 09:00 Dose: 100 mls/hr Documented By: Infusion: 12/08/24 09:31 Dose: Infused Documented By: Admin: 12/08/24 09:01 Dose: 100 mls/hr Documented By: Infusion: 12/07/24 09:23 Dose: Infused Documented By: Admin: 12/07/24 09:04 Dose: Not Given Documented By: GE Non-Admin Reason: se 0853 dose Admin: 12/07/24 08:53 Dose: 100 mls/hr Documented By: GE Influenza Virus Vaccine Quadrival (Influenza Virus Quadrivalent 0.5 Ml Syringe) 0.5 ml IMi .ONCE ONE Stop: 12/07/24 01:36 Insulin Human Lispro (Insulin Lispro (Admelog) 1 Unit/0.01 Ml Unit) 0 unit SC [facility]; Protocol Stop: 01/06/25 07:29 Last Admin: 12/09/24 07:34 Dose: Not Given Documented By: TD Non-Admin Reason: Per Protocol Admin: 12/08/24 17:14 Dose: Not Given Documented By: TD Non-Admin Reason: Per Protocol Admin: 12/08/24 11:42 Dose: Not Given Documented By: TD Non-Admin Reason: Per Protocol Admin: 12/08/24 07:34 Dose: Not Given Documented By: TD Non-Admin Reason: Per Protocol Admin: 12/07/24 16:55 Dose: Not Given Documented By: [email or web address] Non-Admin Reason: Per Protocol Admin: 12/07/24 11:44 Dose: Not Given Documented By: [email or web address] Non-Admin Reason: Per Protocol Admin: 12/07/24 07:36 Dose: Not Given Documented By: GE Non-Admin Reason: Per Protocol Lorazepam (Lorazepam 0.5 Mg Tablet) 1 mg PO X1 ONE Stop: 12/06/24 17:26 Last Admin: 12/06/24 17:41 Dose: 1 mg Documented By: Lorazepam (Lorazepam 0.5 Mg Tablet) 0.5 mg PO Q4H PRN PRN Reason: CINY 2-6 Stop: 12/11/24 23:29 Lorazepam (Lorazepam 0.5 Mg Tablet) 1 mg PO Q4H PRN PRN Reason: CIWA 7-13 Stop: 12/11/24 23:30 Losartan Potassium (Losartan Potassium 25 Mg Tablet) 50 mg PO QDAY RANDA Stop: 01/07/25 08:59 Last Admin: 12/09/24 09:00 Dose: 50 mg Documented By: Admin: 12/08/24 09:00 Dose: 50 mg Documented By: TD Magnesium Hydroxide (Milk Of Magnesia Susp 30 Ml Udc) 30 ml PO QDAY PRN PRN Reason: CONSTIPATION Stop: 01/05/25 22:59 Potassium Phos/Sodium Phos ([facility] Mbdb 1 Packet (1.5 Gm)) 1 packet PO X1 ONE Stop: 12/09/24 08:46 Last Admin: 12/09/24 09:00 Dose: 1 packet Documented By: TD Thiamine HCl (Thiamine Inj 100 Mg/Ml Vial 2 Ml) 500 mg IVP QDAY COUNTS INCLUDE 234 BEDS AT THE [facility] Stop: 01/05/25 23:24 Last Admin: 12/07/24 01:26 Dose: Not Given Documented By: AD Non-Admin Reason: Discontinued Thiamine HCl (Thiamine Inj 100 Mg/Ml Vial 2 Ml) 500 mg IV QDAY COUNTS INCLUDE 234 BEDS AT THE [facility] Stop: 01/06/25 00:44 Last Admin: 12/07/24 01:26 Dose: Not Given Documented By: AD Non-Admin Reason: Discontinued See above if any. Consultations/Discussions re: Management Consult #1: Date/time: 12/06/24 21:42 Physician, specialty, service, details: Dr. Oneil made aware of the patient?s HPI, PMHx, lab and/or radiology results. Treatment plan was discussed. Will admit for further evaluation and management. Accepts patient for admission. Diagnosis Differential diagnosis: Sepsis, Alcohol withdrawal, Alcohol abuse Dispositon Disposition: Admit
[2024-12-06 18:26] LABS: Amphetamine/Methamp Scrn,U Negative (Negative); Barbiturate Screen,Urine Negative (Negative); Benzodiazepines Screen,Urine Negative (Negative); Benzoylecgonine Screen, Ur Negative (Negative); Fentanyl Screen,Urine Positive (Negative); Opiate Screen,Urine Negative (Negative); THC Screen,Urine Negative (Negative)
[2024-12-06 18:28] LABS: Bilirubin,Urine Negative (Negative); Blood,Urine 3+ (Negative); Clarity,Urine Turbid (Clear/Hazy); Glucose, Urine 4+ (Negative); Ketones,Urine 1+ (Negative); Leukocyte Esterase,Urine Negative (Negative); Nitrite,Urine Negative (Negative); PH,Urine 8.0 (5.0-7.0); Protein,Urine 1+ (Neg - Trace); RBC,Urine 1538 /hpf (0-3); Specific Gravity,Urine 1.028 (1.001-1.035); Squamous Epithelial Cell,Urine < 1 /hpf (0-5); Urobilinogen,Urine Negative mg/dL (0.0-1.0); WBC,Urine 27 /hpf (0-5)
[2024-12-06] MEDS: cefTRIAXone/D5w 1gm IV premix 1 GM/50 ML BAG IV (18:32)
[2024-12-06] MEDS: DIAZEPAM INJ 5 MG/ML VIAL 2 ML 10 MG IVP ×2 (18:32→19:38)
[2024-12-06 18:36] LABS: Color,Urine Lt-Orange (Lt Yel-Yel); Culture Indicated,Urine Yes
[2024-12-06] MEDS: PHENobarbital Inj 130 MG, SODIUM CHLORIDE 0.9% FLUSH 12 ML IVP ×2 (20:52→21:19)
[2024-12-06] MEDS: SODIUM CHLORIDE 0.9% 1000 ML 1,000 ML 999 ML IV ×2 (20:53→22:19)
[2024-12-06 20:58] LABS: Lactate (Lactic Acid) 1.8 mMol/L (0.4-2.0)
[2024-12-06] MEDS: ACETAMINOPHEN 325 MG TABLET 650 MG PO (21:01)
--- NOTE | 2024-12-06 22:30 | PD.RESHP ---
Documentation for date of: 12/06/24 [facility] History of Present Illness History of present illness: The patient is a 64-year-old male with significant past medical history of hypertension, BPH and diabetes mellitus type 2 presented to ED on 12/06/2024 with chief complaint of shaking for past 1 day. The patient has presented 1 day ago, and left AMA. The patient reported drinking multiple shots of vodka and 12 pack of beer daily for past 7 years, he states that his last drink was 3 days ago, because the next day he had to undergo surgery. The patient underwent cystoscopy, transrectal prostatic ultrasound with ultrasound guided needle biopsy of prostate on 12/04/2024. During my evaluation, patient reported doing well, denied any headache, lightheadedness, dizziness, chest pain, SOB, palpitation, abdominal pain, or any changes in bowel or bladder habit. He admitted subjective fever but denied any chills, nausea or vomiting. On examination patient's CIWA score was 9 after having received Lorazepam 1mg x1, Phenobarbital 130mg ivp x2, Diazepam 10mg ivp x2 at ED. In the ED his vitals were significant for BP 132/78, pulse 125, temperature 99.3 that trended up to 103.1, saturating 95% on room air. Labs revealed white count 9.5, hemoglobin 15.6, BUN 5, creatinine 1.0, blood sugar 140, lactic acid 1.8, liver panel WNL, BNP 129, UA revealed protein 1+, glucose 4+, ketones 1+, blood 3+, negative leukocyte esterase and nitrite, RBC 1538, WBC 27, without any bacteria. U tox positive for fentanyl, chest x-ray revealed no acute disease, EKG revealed sinus tachycardia with prolonged QTc of 465. PMH: As mentioned above Surgical history: Cholecystectomy, cystoscopy, transrectal prostatic ultrasound with ultrasound-guided prostate needle biopsy Social history: Drinking multiple shots of hard liquor and beers daily, denied a smoking and drug abuse. Family history: Unremarkable Medications: Metformin, Jardiance, Mounjaro, statin, aspirin, losartan Allergies: No known allergies Patient received 2 L of bolus crystalloid fluid, lorazepam 1 mg p.o. x 1, diazepam 10 mg IV x 2, ceftriaxone 1 g IV x 1, Tylenol 650 mg p.o. x 1, phenobarbital 130 mg IV x 2, and was admitted to ICU for further management of alcohol withdrawal and acute prostatitis. Review of Systems Review of Systems Systems Reviewed: All systems reviewed, normal except as documented (As above) Exam Vital Signs Temp Pulse Resp BP Pulse Ox O2 Del Method 103.1 F H 133 H 21 H 136/74 H 95 Room Air 12/06/24 22:05 12/06/24 22:04 12/06/24 22:04 12/06/24 22:04 12/06/24 22:04 12/06/24 22:04 Narrative Exam General: Elderly gentleman, cooperative, no acute distress, Alert and Oriented x 4 HEENT: Moist mucous membranes, oropharynx clear Neck: Supple, No masses, No JVD CVS: S1S2 Regular rate and rhythm, No murmurs, rubs or gallops Lungs: Clear to auscultation with no accessory use, no wheeze no rhonchi Abd: Soft, NT/ND, +BS, no organomegaly Ext: No edema, warm and well perfused, mild shaking of upper and lower extremity Skin: No rash Psych: Appropriate mood and affect Results: Labs 12/06/24 17:42 12/06/24 17:42 Labs: Short CBC 12/06/24 Range/Units 17:42 WBC 9.5 (3.8-10.6) Thou/mm3 Hgb 15.6 (13.5-16.0) g/dL Hct 45.8 (41.0-53.0) % Plt Count 148 (140-440) Thou/mm3 BMP 12/06/24 17:42 Sodium 139 Potassium 3.8 Chloride 103 Carbon Dioxide 23.8 BUN 5 L Creatinine 1.0 Glucose 140 H Calcium 10.0 Cardiac Enzymes 12/06/24 Range/Units 17:42 Troponin I < 0.002 (0.0-0.045) ng/mL Liver Function 12/06/24 Range/Units 17:42 Total Bilirubin 0.8 (0.3-1.2) mg/dL AST 28 (0-34) U/L ALT 28 (10-49) U/L Alkaline Phosphatase 83 (46-116) U/L Albumin 4.6 D (3.4-4.8) gm/dL Urine 12/06/24 Range/Units 18:00 Urine Color Lt-[place] A (Lt Yel-Yel) Urine Clarity Turbid A (Clear/Hazy) Urine pH 8.0 H (5.0-7.0) Ur Specific [place] 1.028 (1.001-1.035) Urine Protein 1+ A (Neg - Trace) Urine Glucose (UA) 4+ A (Negative) Quality Measures Quality Measures none Advance care planning discussed with:: patient and child Medications Home Medications and Allergies Home Medications ?Medication ?Instructions ?Recorded ?Confirmed ?Type aspirin 81 mg tablet 81 mg PO QDAY 05/07/20 12/06/24 History losartan 50 mg tablet 50 mg PO QDAY 05/07/20 12/06/24 History metformin 1,000 mg tablet 1,000 mg PO BID 05/07/20 12/06/24 History atorvastatin 20 mg tablet 20 mg PO DAILY 12/04/24 12/06/24 History empagliflozin 25 mg tablet 25 mg PO DAILY 12/04/24 12/06/24 History (Jardiance) multivitamin,jl-djan-Oq-FA-min 1 tab PO DAILY 12/04/24 12/06/24 History tirzepatide 5 mg/0.5 mL 5 mg subcut QWEEK 12/04/24 12/06/24 History subcutaneous pen injector (Mounjaro) Allergies Allergy/AdvReac Type Severity Reaction Status Date / Time No Known Allergies Allergy Unknown Verified 12/06/24 15:46 Visit Medications Sodium Chloride (Ns) 1,000 mls @ 999 mls/hr IV .Q1H1M ONE Stop: 12/06/24 23:08 Last Admin: 12/06/24 22:19 Dose: 999 mls/hr Discontinued Medications Acetaminophen (Acetaminophen 325 Mg Tablet) 650 mg PO X1 ONE Stop: 12/06/24 20:48 Last Admin: 12/06/24 21:01 Dose: 650 mg Phenobarbital Sodium 130 mg/ (Sodium Chloride 12 ml) 0 mg IVP X1 ONE Stop: 12/06/24 20:43 Last Admin: 12/06/24 20:52 Dose: 130 mg Phenobarbital Sodium 130 mg/ (Sodium Chloride 12 ml) 0 mg IVP X1 ONE Stop: 12/06/24 21:15 Last Admin: 12/06/24 21:19 Dose: 130 mg Diazepam (Diazepam Inj 5 Mg/Ml Vial 2 Ml) 10 mg IVP X1 ONE Stop: 12/06/24 18:24 Last Admin: 12/06/24 18:32 Dose: 10 mg Diazepam (Diazepam Inj 5 Mg/Ml Vial 2 Ml) 10 mg IVP X1 ONE Stop: 12/06/24 19:29 Last Admin: 12/06/24 19:38 Dose: 10 mg Ceftriaxone Sodium/Dextrose (Rocephin/D5w 1gm Iv Premix) 1 gm in 50 mls @ 100 mls/hr IV X1 ONE Stop: 12/06/24 18:52 Last Infusion: 12/06/24 19:26 Dose: Infused Sodium Chloride (Ns) 1,000 mls @ 999 mls/hr IV .Q1H1M ONE Stop: 12/06/24 21:41 Last Infusion: 12/06/24 21:59 Dose: Infused Lorazepam (Lorazepam 0.5 Mg Tablet) 1 mg PO X1 ONE Stop: 12/06/24 17:26 Last Admin: 12/06/24 17:41 Dose: 1 mg Assessment & Plan Plan The patient is a 64-year-old male with significant past medical history of hypertension, BPH and diabetes mellitus type 2 presented to ED on 12/06/2024 with chief complaint of shaking for past 1 day. In the ED his vitals were significant for BP 132/78, pulse 125, temperature 99.3 that trended up to 103.1, saturating 95% on room air. The patient was admitted to ICU for further management of alcohol withdrawal. Neuro: #Alcohol withdrawal The patient presented with generalized shakiness of upper and lower extremity. CIWA score was found to have 9. He is alert and oriented x 4 Patient received lorazepam 1 mg p.o. x 1, diazepam 10 mg IV x 2, ceftriaxone 1 g IV x 1, Tylenol 650 mg p.o. x 1, phenobarbital 130 mg IV x 2 in the ED -Plan to administer phenobarbital 260 mg IV x 1, 6-hour after the initial dose, followed by 130 mg IV every 8 hourly to be tapered down as tolerated - On CIWA protocol with p.o. Ativan and IV Diazepam CVS: #Sinus tachycardia Likely secondary to alcohol withdrawal - Continue to treat alcohol withdrawal #Primary hypertension Currently hold home antihypertensives due to possible sepsis Pulmonology: - No active disease GI: - No active disease Renal/: #Acute prostatitis #S/p transrectal prostatic ultrasound guided needle biopsy of prostate on 12/04/[address] Elkins. #Proteinuria #Hematuria, likely secondary to recent urological procedure #Glucosuria, likely secondary to Jardiance #UTOX positive for fentanyl, likely exposure during recent urological procedure - Monitor closely -Patient started on Zosyn for concern of resistant organism -Follow up BCx and UCx Endocrinology: #Diabetes mellitus type 2 - Started on sliding scale insulin - A1c ordered Hematology: - No acute issues Infectious disease: #Acute Prostatisits Likely secondary to recent urological procedure Met 2/4 SIRS criteria with tachycardia and fever Received ceftriaxone 1 g IV x 1 in the ED Received 2 L of bolus fluid in the ED -Patient started on Zosyn for concern of resistant organism - Blood and urine culture ordered MSK: #Generalized sickness of upper and lower extremities Secondary to alcohol withdrawal - Continue to treat alcohol withdrawal Psych: #Alcohol abuse disorder - Social service consultation done Health maintenance: Dispo: Patient admitted to ICU for further management of alcohol withdrawal Diet: Carbohydrate consistent diet DVT prophylaxis: Heparin SC 5000 bid CODE STATUS: Full code The patient's management plan was discussed with my attending physician MD Tulio Amado MD, PGY3 Attending Provider Attestation/Addendum After examination of the patient and review of the clinical data I feel that this patient needs admission to the hospital for further treatment/evaluation. TOTAL CC TIME: 45 MIN TOTAL TIME: 45 Minutes of direct medical management and planning of care. I Stephanie Spann MD, attest that I was physically present for rowell portions of evaluation, and examined patient, labs and imagings and plan of care were discussed with IM residents team, and I agree with the findings and plans documented above.
--- NOTE | 2024-12-06 23:10 | PC.NURSE ---
called to give report no answer
[2024-12-07] VITALS (18 sets, daily range): BP systolic 111–139; BP diastolic 55–90; PULSE 71–102; RESP 16–93; TEMP 36.2–38.4; O2SAT 89–97; BMI 33.6
[2024-12-07] MEDS: RINGERS LACTATED 1000 ML 1,000 ML 999 ML IV (01:01)
[2024-12-07] MEDS: THIAMINE INJ 500 MG in SODIUM CHLORIDE 0.9% 100 ML 210 MG IV (01:05)
[2024-12-07] MEDS: FOLIC ACID INJ 1 MG/0.2 ML IVP (01:07)
[2024-12-07] MEDS: PIPER/TAZO 3.375 GM PREMIX 3.375 GM/50 ML BAG IV (01:08)
[2024-12-07 06:38] LABS: Basophils # (Auto) 0.0 Thou/mm3 (0.0-0.2); Basophils % (Auto) 0 % (0-2.5); Eosinophils # (Auto) 0.0 Thou/mm3 (0.0-0.5); Eosinophils % (Auto) 0 % (0-10); Hematocrit 41.9 % (41.0-53.0); Hemoglobin 14.4 g/dL (13.5-16.0); Immature Granulocytes Auto 0.06 Thou/mm3 (0.00-0.00); Lymphocytes # (Auto) 1.1 Thou/mm3 (1.0-4.8); Lymphocytes % (Auto) 10 % (10-50); Mean Corpuscular HGB Conc 34.4 g/dl (31.0-37.0); Mean Corpuscular Hemoglobin 33.6 pg (25.0-35.0); Mean Corpuscular Volume 98 fL (80-100); Monocytes # (Auto) 0.9 Thou/mm3 (0.0-0.8); Monocytes % (Auto) 8 % (0-12); Neutrophils # (Auto) 9.0 Thou/mm3 (1.8-7.7); Neutrophils % (Auto) 82 % (37-80); Nucleated Red Blood Cell # 0.00 Thou/mm3 (0.00-0.00); Nucleated Red Blood Cell % 0 /100 WBC (0); Platelet Count 126 Thou/mm3 (140-440); RDW Standard Deviation 45.1 fL (35.1-43.9); Red Blood Count 4.29 Miln/mm3 (4.50-5.90); White Blood Count 11.0 Thou/mm3 (3.8-10.6)
[2024-12-07 07:21] LABS: Alanine Aminotransferase 20 U/L (10-49); Albumin, Serum 3.7 gm/dL (3.4-4.8); Albumin/Globulin Ratio 1.4 (1.2-2.2); Alkaline Phosphatase 67 U/L (46-116); Anion Gap 12 (7-16); Aspartate Amino Transferase 28 U/L (0-34); BUN/Creatinine Ratio 9 Ratio (12-20); Bilirubin,Total 0.8 mg/dL (0.3-1.2); Blood Urea Nitrogen 6 mg/dL (9-23); Calcium 8.7 mg/dL (8.3-10.6); Calcium (Corrected) 8.9 mg/dL (8.5-10.1); Carbon Dioxide 21.9 mMol/L (20.0-31.0); Chloride 109 mMol/L (98-107); Creatinine (Component) 0.7 mg/dL (0.6-1.3); Estimated Creatinine Clearance 97.1 mL/min (>60); Globulin 2.7 gm/dL (2.3-3.5); Glucose 88 mg/dL (74-106); Magnesium 1.9 mg/dL (1.6-2.6); Osmolality,Calculated 281 (275-295); Phosphorous 3.3 mg/dL (2.4-5.1); Potassium 3.8 mMol/L (3.4-5.1); Sodium 143 mMol/L (136-145); Total Protein 6.4 gm/dL (5.7-8.2); eGFR > 60 See Note
--- NOTE | 2024-12-07 07:43 | ESPR_ITS ---
Documentation for date of: 12/07/24 Exam Vital Signs Temp Pulse Resp BP Pulse Ox O2 Del Method 97.2 F 76 18 128/55 L 94 L Room Air 12/07/24 04:00 12/07/24 07:05 12/07/24 07:05 12/07/24 07:00 12/07/24 07:00 12/06/24 22:04 Narrative Exam Gen: Well-developed and well-nourished male. HEENT: NCAT, PERRLA, EOMI, MMM, anicteric conjunctivae. CVS: normal S1 and S2. RRR. No M/R/G. Resp: CTA B/L. No rhonchi, rales, crackles or wheezing. Abd: soft, obese, non-tender, non-distended. BS+ in all 4 quadrants. MSK: Good ROM in BUE & BLE. No edema or rash. Neuro: CN II-XII grossly intact. Strength 5/5 in BUE & BLE. Alert and oriented x3. Objective Labs 12/07/24 05:04 12/07/24 05:04 Labs: Laboratory Results - last 24 hr 12/06/24 12/06/24 12/06/24 17:42 18:00 20:46 WBC 9.5 RBC 4.75 Hgb 15.6 Hct 45.8 MCV 96 MCH 32.8 MCHC 34.1 RDW Std Deviation 44.9 H Plt Count 148 Neut % (Auto) 90 H Lymph % (Auto) 5 L Lynn % (Auto) 5 Eos % (Auto) 0 Baso % (Auto) 0 Neut # (Auto) 8.5 H Lymph # (Auto) 0.4 L Lynn # (Auto) 0.5 Eos # (Auto) 0.0 Baso # (Auto) 0.0 Immature Gran # (Auto) 0.04 H Absolute Nucleated RBC 0.00 Immature Gran % 0 Nucleated RBC % 0 Sodium 139 Potassium 3.8 Chloride 103 Carbon Dioxide 23.8 Anion Gap 12 BUN 5 L Creatinine 1.0 Estim Creat Clear Calc 67.2 eGFR > 60 BUN/Creatinine Ratio 5 L Glucose 140 H Calculated Osmolality 276 Lactic Acid 1.8 Calcium 10.0 Corrected Calcium 10.0 Phosphorus Magnesium Total Bilirubin 0.8 AST 28 ALT 28 Alkaline Phosphatase 83 Troponin I < 0.002 B-Natriuretic Peptide 129 H Total Protein 7.6 Albumin 4.6 D Globulin 3.0 Albumin/Globulin Ratio 1.5 Ur Collection Type Voided Urine Color Lt-[place] A Urine Clarity Turbid A Urine pH 8.0 H Ur Specific [place] 1.028 Urine Protein 1+ A Urine Glucose (UA) 4+ A Urine Ketones 1+ A Urine Blood 3+ A Urine Nitrite Negative Urine Bilirubin Negative Urine Urobilinogen (Auto) Negative Ur Leukocyte Esterase Negative Urine RBC 1538 H Urine WBC 27 H Ur Squamous Epith Cells < 1 Urine Bacteria None Ur Culture Indicated? Yes Urine Opiates Screen Negative Urine Fentanyl Screen Positive A Ur Barbiturates Screen Negative U Amphetamin/Meth Scrn Negative U Benzodiazepines Scrn Negative U Cocaine Metab Screen Negative U Marijuana (THC) Screen Negative 12/07/24 05:04 WBC 11.0 H RBC 4.29 L Hgb 14.4 Hct 41.9 MCV 98 MCH 33.6 MCHC 34.4 RDW Std Deviation 45.1 H Plt Count 126 L Neut % (Auto) 82 H Lymph % (Auto) 10 Lynn % (Auto) 8 Eos % (Auto) 0 Baso % (Auto) 0 Neut # (Auto) 9.0 H Lymph # (Auto) 1.1 Lynn # (Auto) 0.9 H Eos # (Auto) 0.0 Baso # (Auto) 0.0 Immature Gran # (Auto) 0.06 H Absolute Nucleated RBC 0.00 Immature Gran % 1 H Nucleated RBC % 0 Sodium 143 Potassium 3.8 Chloride 109 H Carbon Dioxide 21.9 Anion Gap 12 BUN 6 L Creatinine 0.7 Estim Creat Clear Calc 97.1 eGFR > 60 BUN/Creatinine Ratio 9 L Glucose 88 D Calculated Osmolality 281 Lactic Acid Calcium 8.7 Corrected Calcium 8.9 Phosphorus 3.3 Magnesium 1.9 Total Bilirubin 0.8 AST 28 ALT 20 Alkaline Phosphatase 67 Troponin I B-Natriuretic Peptide Total Protein 6.4 Albumin 3.7 D Globulin 2.7 Albumin/Globulin Ratio 1.4 Ur Collection Type Urine Color Urine Clarity Urine pH Ur Specific [place] Urine Protein Urine Glucose (UA) Urine Ketones Urine Blood Urine Nitrite Urine Bilirubin Urine Urobilinogen (Auto) Ur Leukocyte Esterase Urine RBC Urine WBC Ur Squamous Epith Cells Urine Bacteria Ur Culture Indicated? Urine Opiates Screen Urine Fentanyl Screen Ur Barbiturates Screen U Amphetamin/Meth Scrn U Benzodiazepines Scrn U Cocaine Metab Screen U Marijuana (THC) Screen Quality Measures Quality Measures VTE prophylaxis Advance care planning discussed with:: patient Assessment & Plan Assessment Current Active Medications: Generic Name Dose Route Start Last Admin Trade Name Freq PRN Reason Stop Dose Admin Acetaminophen 650 mg 12/06/24 23:00 Acetaminophen 325 Mg Tablet PO 01/05/25 22:59 Q4HR PRN PAIN SCALE 1-3 (mild Al Hydrox/Mg Hydrox/Simethicone 30 ml 12/06/24 23:00 Mg Hyd/Al Hyd/Maritza (Maalox Reg) Susp 30 Ml Udc PO 01/05/25 22:59 Q4HR PRN Heartburn or Upset Stomach Phenobarbital Sodium 130 mg/ 0 mg 12/07/24 07:45 Sodium Chloride 12 ml IVP 12/21/24 07:44 Q8H RANDA Dextrose 25 ml 12/06/24 23:20 Dextrose 50%-Water Inj 50 Ml Syringe IV 01/05/25 23:19 Q15MIN PRN BG 50-70 responsive npo pt Dextrose 50 ml 12/06/24 23:20 Dextrose 50%-Water Inj 50 Ml Syringe IV 01/05/25 23:19 Q15MIN PRN BG <50 OR BG <70 & pt unresponsive Diazepam 5 mg 12/06/24 23:07 Diazepam Inj 5 Mg/Ml Vial 2 Ml IVP X1 PRN Breakthrough Agitation Diazepam 20 mg 12/06/24 23:32 Diazepam Inj 5 Mg/Ml Vial 2 Ml IVP 12/11/24 23:06 Q1HR PRN CIWA 20-25 Diazepam 10 mg 12/06/24 23:32 Diazepam Inj 5 Mg/Ml Vial 2 Ml IVP 12/11/24 23:06 Q2HR PRN CIWA SCORE 14-19 Diazepam 5 mg 12/06/24 23:32 Diazepam Inj 5 Mg/Ml Vial 2 Ml IVP 12/11/24 23:06 Q1HR PRN CIWA 8-13 Folic Acid 1 mg 12/07/24 09:00 Folic Acid 1 Mg Tablet PO 01/06/25 08:59 QDAY RANDA Glucagon 1 mg 12/06/24 23:20 Glucagon Inj 1 Mg Vial IM Q15MIN PRN BG <70, and no IV access Heparin Sodium (Porcine) 5,000 unit 12/07/24 09:00 Heparin Sod Inj 5000 Unit/Ml Vial SC 12/21/24 08:59 Q12HR RANDA Piperacillin/Tazobactam/Dextrose 3.375 gm in 50 mls @ 12.5 mls/hr 12/07/24 00:30 12/07/24 01:08 Zosyn IV 12/14/24 00:29 12.5 mls/hr Q8H RANDA Administration Protocol Insulin Human Lispro 0 unit 12/07/24 07:30 12/07/24 07:36 Insulin Lispro (Admelog) 1 Unit/0.01 Ml Unit SC 01/06/25 07:29 Not Given AC RANDA Protocol Lorazepam 0.5 mg 12/06/24 23:30 Lorazepam 0.5 Mg Tablet PO 12/11/24 23:29 Q4H PRN CIWA 2-6 Magnesium Hydroxide 30 ml 12/06/24 23:00 Milk Of Magnesia Susp 30 Ml Udc PO 01/05/25 22:59 QDAY PRN CONSTIPATION Plan The patient is a 64-year-old male with significant past medical history of hypertension, BPH and diabetes mellitus type 2 presented to ED on 12/06/2024 with chief complaint of shaking for past 1 day. In the ED his vitals were significant for BP 132/78, pulse 125, temperature 99.3 that trended up to 103.1, saturating 95% on room air. The patient was admitted to ICU for further management of alcohol withdrawal. Neuro: #Alcohol withdrawal. The patient presented with generalized shakiness of upper and lower extremity. CIWA score was found to have 9. He is alert and oriented x 4. Patient received lorazepam 1 mg p.o. x 1, diazepam 10 mg IV x 2, ceftriaxone 1 g IV x 1, Tylenol 650 mg p.o. x 1, phenobarbital 130 mg IV x 2 in the ED. -Plan to administer phenobarbital 260 mg IV x 1, 6-hour after the initial dose, followed by 130 mg IV every 8 hourly to be tapered down as tolerated. Plan: - phenobarbital 130 mg Q8H, wean off when tolerating. - On CIWA protocol with p.o. Ativan and IV Diazepam. - started on thiamine 500 mg daily. CVS: #Sinus tachycardia, resolved. Likely secondary to alcohol withdrawal. #Primary hypertension. On losartan at home. Plan: Currently hold home antihypertensives due to possible sepsis. Pulmonology: - No active disease. GI: - No active disease. Renal/: #Acute prostatitis. #S/p transrectal prostatic ultrasound guided needle biopsy 12/04/[address] Elkins. #Proteinuria. #Hematuria, likely secondary to recent urological procedure. #Glucosuria, likely secondary to Jardiance. #UTOX positive for fentanyl, likely exposure during recent urological procedure. Has gross hematuria on admission. On 12/04/2024 underwent transrectal prostatic ultrasound guided needle biopsy by Dr. Elkins. Plan: -hold Jardiance, consider other diabetes medications on d/c. -Zosyn discontinued, started on ceftriaxone. -Follow up BCx and UCx. -consider urology consult. Endocrinology: #Diabetes mellitus type 2. Plan: -continue on sliding scale insulin. -A1c pending. Hematology: #Leukocytosis. Likely related to prostatitis. Plan: -continue current management, monitor daily labs. #Thrombocytopenia. PLT 126, likely related to alcohol abuse. Plan: - monitor daily labs. Infectious disease: #Acute Prostatitis. Likely secondary to recent urological procedure. Met 2/4 SIRS criteria with tachycardia and fever. Received ceftriaxone 1 g IV x 1 in the ED. Received 2 L of bolus fluid in the ED. Plan: -Zosyn discontinued, started on ceftriaxone. -Blood and urine culture ordered. MSK: #Generalized weakness of upper and lower extremities. Secondary to alcohol withdrawal. Plan: - Continue to treat alcohol withdrawal. Psych: #Alcohol abuse disorder. Drinks vodka and beer daily. Plan: - Social service consultation ordered. Health maintenance: Dispo: Patient admitted to ICU for further management of alcohol withdrawal. Diet: Carbohydrate consistent diet. DVT prophylaxis: Heparin SC 5000 bid held, on SCDs. CODE STATUS: Full code. Plan of care discussed with attending Dr. Gilbert. Ugo Harris MD, PGY 3. Disclaimer: This note was dictated by speech recognition. Minor errors in printer floor covering assistant may be present due to voice recognition software. Attending Provider Attestation/Addendum Patient seen and examined with above resident, Ugo Harris MD. I agree with the findings, assessment, and plan of care as document except for any differences below. Patient admitted to ICU overnight due to requirements of phenobarbital with concern for escalation of alcohol withdrawal syndrome. Patient this morning is doing well with no immediate evidence of tremors, hypotension/tachycardia, altered mentation. He states that he feels well with minimal withdrawal symptoms. Patient also started on appropriate antibiotic therapy for prostatitis post recent biopsy. Patient with no other acute complaints and is eating well at this point. Will plan for continued phenobarbital taper in the coming days prior to discharge. Counseled extensively on risks of alcohol withdrawal including , available resources in the community, and importance of abstinence in the long run and screening environmental factors that predispose him to relapse. Patient will be transferred to medicine [place] for ongoing management prior to discharge in coming 24 to 48 hours. Will defer to medicine for resumption of home medications and plan of discharge medication reconciliation. Total critical care time: I personally spent 35 minutes for review of physiologic parameters, directing plan of care throughout the day, coordination of care with other specialties, and counseling patient extensively at bedside. This is exclusive of time spent teaching housestaff or performing any separate billable procedures. Patient required critical care services for alcohol withdrawal syndrome and acute prostatitis, postprocedural.
[2024-12-07 08:35] LABS: Glucose Estimated Average 137 mg/dL (80-131); Hemoglobin A1C 6.4 % Hgb (4.8-6.0)
[2024-12-07] MEDS: PHENobarbital Inj 130 MG, SODIUM CHLORIDE 0.9% FLUSH 12 ML IVP ×2 (08:52→20:46)
[2024-12-07] MEDS: cefTRIAXone/D5w 1gm IV premix 1 GM/50 ML BAG IV (08:53)
[2024-12-07] MEDS: FOLIC ACID 1 MG TABLET PO (08:53)
--- NOTE | 2024-12-07 09:39 | PD.RESPRO ---
Documentation for date of: 12/07/24 Subjective Subjective Interval history: Overnight events: No acute events overnight. Patient was seen and examined at bedside. AM vitals and labs reviewed. Patient downgraded from ICU today. Patient appears to be in good spirits, not anxious and has no complaints at this time. CIWA 1. In summary: This patient is a 64-year-old male with history of hypertension, BPH s/p prostate resection, and T2DM, presented to [facility] ED on 12/06 for complaints of whole body shaking. The patient was admitted to the ICU for management of alcohol withdrawal. The patient normally drinks about 12 packs of beer and 2 shots of vodka daily, however stopped drinking abruptly 12/04 because he had to undergo ultrasound-guided prostate needle biopsy, which was done on 12/05. The patient's last drink was on 12/03. Patient was prescribed antibiotics after the procedure, however he was not compliant. The patient would feel feverish, chills, and whole body shaking in the evening after the procedure. The patient was initially evaluated in ED, however because of the long wait time, he left AMA. Symptoms continued and the patient received a call alerting him of elevated WBC, so the patient sought care at [facility] ED again on 12/06 as he was advised to return. In the ED, the patient received benzodiazepines and was started on phenobarbital. Patient was admitted to ICU, and was continued on phenobarbital and CIWA protocol. On 12/07, the patient was stable enough to be downgraded to medical floors. Decrease phenobarbital 130 mg from every 8 hours to twice daily. If tolerates well, will decrease to once daily tomorrow. Continue CIWA protocol. Continue Ativan 0.5 mg every 4 hours as needed. Review of systems otherwise negative except for what is mentioned above. Exam Vital Signs Temp Pulse Resp BP Pulse Ox O2 Del Method 97.2 F 76 18 128/55 L 94 L Room Air 12/07/24 04:00 12/07/24 07:05 12/07/24 07:05 12/07/24 07:00 12/07/24 07:00 12/06/24 22:04 Narrative Exam Physical Exam: General: Alert, no acute distress. Skin: Warm, dry, intact. Head: Normocephalic, atraumatic. Eye: Normal conjunctiva, PERRL. Throat: Oral mucosa moist. No obvious lesions in oropharynx. Cardiovascular: Regular rate and rhythm, no murmur, +S1/S2. Respiratory: Lungs are clear to auscultation, respirations unlabored, no crackles, no wheezing. Gastrointestinal: Soft, nontender, non-distended. No guarding or rebound tenderness. Extremities: No edema, no cyanosis, no clubbing. 2+ radial pulse bilaterally, 2+ pedal pulse bilaterally. Neuro: No focal deficits observed. Conversant, moving all extremities. No overt cerebellar signs/incoordination. Psychiatric: Cooperative, appropriate affect. Objective Labs 12/08/24 05:06 12/08/24 05:06 Labs: Laboratory Results - last 24 hr 12/06/24 12/06/24 12/06/24 17:42 18:00 20:46 WBC 9.5 RBC 4.75 Hgb 15.6 Hct 45.8 MCV 96 MCH 32.8 MCHC 34.1 RDW Std Deviation 44.9 H Plt Count 148 Neut % (Auto) 90 H Lymph % (Auto) 5 L Wallace % (Auto) 5 Eos % (Auto) 0 Baso % (Auto) 0 Neut # (Auto) 8.5 H Lymph # (Auto) 0.4 L Wallace # (Auto) 0.5 Eos # (Auto) 0.0 Baso # (Auto) 0.0 Immature Gran # (Auto) 0.04 H Absolute Nucleated RBC 0.00 Immature Gran % 0 Nucleated RBC % 0 Sodium 139 Potassium 3.8 Chloride 103 Carbon Dioxide 23.8 Anion Gap 12 BUN 5 L Creatinine 1.0 Estim Creat Clear Calc 67.2 eGFR > 60 BUN/Creatinine Ratio 5 L Glucose [address] Glu mg/dL Hemoglobin A1c Calculated Osmolality 276 Lactic Acid 1.8 Calcium 10.0 Corrected Calcium 10.0 Phosphorus Magnesium Total Bilirubin 0.8 AST 28 ALT 28 Alkaline Phosphatase 83 Troponin I < 0.002 B-Natriuretic Peptide 129 H Total Protein 7.6 Albumin 4.6 D Globulin 3.0 Albumin/Globulin Ratio 1.5 Ur Collection Type Voided Urine Color Lt-Hooker A Urine Clarity Turbid A Urine pH 8.0 H Ur Specific [place] 1.028 Urine Protein 1+ A Urine Glucose (UA) 4+ A Urine Ketones 1+ A Urine Blood 3+ A Urine Nitrite Negative Urine Bilirubin Negative Urine Urobilinogen (Auto) Negative Ur Leukocyte Esterase Negative Urine RBC 1538 H Urine WBC 27 H Ur Squamous Epith Cells < 1 Urine Bacteria None Ur Culture Indicated? Yes Urine Opiates Screen Negative Urine Fentanyl Screen Positive A Ur Barbiturates Screen Negative U Amphetamin/Meth Scrn Negative U Benzodiazepines Scrn Negative U Cocaine Metab Screen Negative U Marijuana (THC) Screen Negative 12/07/24 05:04 WBC 11.0 H RBC 4.29 L Hgb 14.4 Hct 41.9 MCV 98 MCH 33.6 MCHC 34.4 RDW Std Deviation 45.1 H Plt Count 126 L Neut % (Auto) 82 H Lymph % (Auto) 10 Wallace % (Auto) 8 Eos % (Auto) 0 Baso % (Auto) 0 Neut # (Auto) 9.0 H Lymph # (Auto) 1.1 Wallace # (Auto) 0.9 H Eos # (Auto) 0.0 Baso # (Auto) 0.0 Immature Gran # (Auto) 0.06 H Absolute Nucleated RBC 0.00 Immature Gran % 1 H Nucleated RBC % 0 Sodium 143 Potassium 3.8 Chloride 109 H Carbon Dioxide 21.9 Anion Gap 12 BUN 6 L Creatinine 0.7 Estim Creat Clear Calc 97.1 eGFR > 60 BUN/Creatinine Ratio 9 L Glucose [address] Glu mg/dL 137 H Hemoglobin A1c 6.4 H Calculated Osmolality 281 Lactic Acid Calcium 8.7 Corrected Calcium 8.9 Phosphorus 3.3 Magnesium 1.9 Total Bilirubin 0.8 AST 28 ALT 20 Alkaline Phosphatase 67 Troponin I B-Natriuretic Peptide Total Protein 6.4 Albumin 3.7 D Globulin 2.7 Albumin/Globulin Ratio 1.4 Ur Collection Type Urine Color Urine Clarity Urine pH Ur Specific [place] Urine Protein Urine Glucose (UA) Urine Ketones Urine Blood Urine Nitrite Urine Bilirubin Urine Urobilinogen (Auto) Ur Leukocyte Esterase Urine RBC Urine WBC Ur Squamous Epith Cells Urine Bacteria Ur Culture Indicated? Urine Opiates Screen Urine Fentanyl Screen Ur Barbiturates Screen U Amphetamin/Meth Scrn U Benzodiazepines Scrn U Cocaine Metab Screen U Marijuana (THC) Screen Quality Measures Quality Measures VTE prophylaxis Advance care planning discussed with:: patient Assessment & Plan Assessment Current Active Medications: Generic Name Dose Route Start Last Admin Trade Name Freq PRN Reason Stop Dose Admin Acetaminophen 650 mg 12/06/24 23:00 Acetaminophen 325 Mg Tablet PO 01/05/25 22:59 Q4HR PRN PAIN SCALE 1-3 (mild Al Hydrox/Mg Hydrox/Simethicone 30 ml 12/06/24 23:00 Mg Hyd/Al Hyd/Maritza (Maalox Reg) Susp 30 Ml Udc PO 01/05/25 22:59 Q4HR PRN Heartburn or Upset Stomach Phenobarbital Sodium 130 mg/ 0 mg 12/07/24 09:00 12/07/24 08:52 Sodium Chloride 12 ml IVP 12/21/24 08:59 130 mg Q12HR RANDA Administration Dextrose 25 ml 12/06/24 23:20 Dextrose 50%-Water Inj 50 Ml Syringe IV 01/05/25 23:19 Q15MIN PRN BG 50-70 responsive npo pt Dextrose 50 ml 12/06/24 23:20 Dextrose 50%-Water Inj 50 Ml Syringe IV 01/05/25 23:19 Q15MIN PRN BG <50 OR BG <70 & pt unresponsive Diazepam 5 mg 12/06/24 23:07 Diazepam Inj 5 Mg/Ml Vial 2 Ml IVP X1 PRN Breakthrough Agitation Diazepam 20 mg 12/06/24 23:32 Diazepam Inj 5 Mg/Ml Vial 2 Ml IVP 12/11/24 23:06 Q1HR PRN CIWA 20-25 Diazepam 10 mg 12/06/24 23:32 Diazepam Inj 5 Mg/Ml Vial 2 Ml IVP 12/11/24 23:06 Q2HR PRN CIWA SCORE 14-19 Diazepam 5 mg 12/06/24 23:32 Diazepam Inj 5 Mg/Ml Vial 2 Ml IVP 12/11/24 23:06 Q1HR PRN CIWA 8-13 Folic Acid 1 mg 12/07/24 09:00 12/07/24 08:53 Folic Acid 1 Mg Tablet PO 01/06/25 08:59 1 mg QDAY RANDA Administration Glucagon 1 mg 12/06/24 23:20 Glucagon Inj 1 Mg Vial IM Q15MIN PRN BG <70, and no IV access Ceftriaxone Sodium/Dextrose 1 gm in 50 mls @ 100 mls/hr 12/07/24 08:06 12/07/24 09:04 Rocephin/D5w 1gm Iv Premix IV 12/14/24 08:05 Not Given QDAY [facility] Insulin Human Lispro 0 unit 12/07/24 07:30 12/07/24 07:36 Insulin Lispro (Admelog) 1 Unit/0.01 Ml Unit SC 01/06/25 07:29 Not Given AC [facility] Protocol Lorazepam 0.5 mg 12/06/24 23:30 Lorazepam 0.5 Mg Tablet PO 12/11/24 23:29 Q4H PRN CIWA 2-6 Magnesium Hydroxide 30 ml 12/06/24 23:00 Milk Of Magnesia Susp 30 Ml Udc PO 01/05/25 22:59 QDAY PRN CONSTIPATION Plan Mr. Tejada is a 64-year-old male with history of hypertension, BPH s/p prostate biopsy, and T2DM, presented to [facility] ED on 12/06 for complaints of whole body shaking. The patient was admitted to the ICU for management of alcohol withdrawal and downgraded to medical floors on 12/07 for further management. #Alcohol withdrawal #Thrombocytopenia #Alcohol abuse disorder #Sinus tachycardia, resolved Patient does report drinking about 12 packs of beer a day along with at least 2 shots of vodka a day. Patient stopped abruptly, last drink was 12/03. Patient presented with increased anxiety and whole body shaking in the ED. Patient was initially admitted to ICU for management, but was downgraded to medical floors on 12/07 given stability. Patient is noted to have platelet of 126 on 12/07, likely secondary to alcohol abuse disorder. Plan: [facility] protocol Phenobarbital 130 mg twice daily, will taper to once daily on 12/08 if tolerated, and then discontinue on 12/09 if tolerated Lorazepam 0.5 mg every 4 hours as needed Continue to monitor daily for symptoms Continue to monitor platelets, will transfuse if less than 20 per protocol Counseled patient on safe alcohol cessation Referral to marriage and family social worker #BPH, s/p prostate biopsy 12/05 #?Prostatitis #Leukocytosis, likely reactive, resolving #Hematuria Patient does have a history of BPH, follows Dr. Daigle outpatient for management. Patient had a prostate biopsy on 12/05. Patient did have a elevated white count of 12.2 on 12/05, but this is likely reactive from the biopsy. Patient is noted to have a heart rate of 125 and temperature of 100.5 in ED, but did go up to 104.9 in the ICU. Timeframe does not quite match up with acute prostatitis, and patient does not have any symptoms other than elevated heart rate and temperature, which could be secondary to withdrawal symptoms. Patient was prescribed antibiotics after the procedure, but has not been compliant. Hematuria on UA likely secondary to recent prostate biopsy. Plan: Ceftriaxone 1 g daily (12/06 - 12/20) Blood culture collected 12/06, pending Urine culture x 2 collected 12/06, pending #Non-insulin dependent type 2 diabetes mellitus #Glycosuria Patient does have a history of T2DM. Patient takes Jardiance and tirzepatide for management outpatient. For blood glucose on UA is likely secondary from Jardiance use. Hemoglobin A1c 6.4% Plan: Continue to hold Jardiance Sliding scale insulin step 1 #Primary hypertension Patient does have a history of hypertension. Patient takes losartan at home. Plan: Resume home losartan 50 mg daily DVT Prophylaxis: SCDs GI Prophylaxis: N/A Bowel: N/A Diet: Consistent carbohydrate Brady: N/A Lines: Peripheral IV Antibiotics: Ceftriaxone (12/06 - 12/20) Code Status: FULL Reason for Hospitalization: Alcohol withdrawal Other Barriers to Discharge: Phenobarbital taper Patient plan of care was discussed with the attending physician Dr. Vangie Griffith, PGY1 Attending Provider Attestation/Addendum Face to face evaluation was performed by me. I have personally seen and examined the patient. I discussed the assessment and plan with the entire medicine team. I reviewed available medical records, imaging studies, laboratory results. I agree with the above subjective data, objective findings, assessment and plan except as corrected by me or noted below Alcohol withdrawal seizures Encephalopathy due to above, delirium due to above Essential hypertension Microscopic hematuria History of prostate biopsy few days ago -Patient was started on antibiotics suspicion for prostatitis/UTI? No dysuria likely will stop antibiotics if cultures remain negative fever improves Was placed on phenobarbital protocol with as needed Ativan continue to wean phenobarbital down. Monitor vitals closely as well as for delirium/seizures/DTs More than > 30 minutes spent on the encounter
--- NOTE | 2024-12-07 10:09 | CHAP ---
Patient was visited by the Spiritual Care Volunteer who prayed for them. (Volunteer was in the hospital from 09:50-10:09).
--- NOTE | 2024-12-07 10:55 | PC.SS ---
Patient is a 64 year old male presenting to the hospital for alcohol withdrawal. OFFICE ADMINISTRATION INSTRUCTOR made telephone call to patient?s son Bakari, role and reason was explained for visit. Patient?s son Bakari confirmed patient?s demographic information, patient lives at home with . Bakari stated that in case patient is unable to make medical decisions on his own, patient?s , Idania would be the decision maker PH: [phone]. Bakari stated that patient does not use DME, is diabetic, and pharmacy is [facility]. Bakari stated that patient is seen at [facility] and his PCP changed from Dr. Hmamer to Dr. Peñaloza, last appointment was last week where the change in doctors occurred. Patient is currently employed. Bakari stated that once patient is medically clear he would like his father to return home and family will provide transportation. PCP: Dr. Peñaloza Decision maker: Idania Tejada, D/C: Home
[2024-12-07] MEDS: ACETAMINOPHEN 325 MG TABLET 650 MG PO ×2 (12:01→21:32)
[2024-12-07] MEDS: DIAZEPAM INJ 5 MG/ML VIAL 2 ML 20 MG IVP (21:08)
[2024-12-08] VITALS (9 sets, daily range): BP systolic 100–147; BP diastolic 51–80; PULSE 72–112; RESP 16–22; TEMP 36.1–37.9; O2SAT 92–98
[2024-12-08 05:31] LABS: Basophils # (Auto) 0.0 Thou/mm3 (0.0-0.2); Basophils % (Auto) 0 % (0-2.5); Eosinophils # (Auto) 0.0 Thou/mm3 (0.0-0.5); Eosinophils % (Auto) 0 % (0-10); Hematocrit 40.2 % (41.0-53.0); Hemoglobin 13.8 g/dL (13.5-16.0); Immature Granulocytes Auto 0.05 Thou/mm3 (0.00-0.00); Lymphocytes # (Auto) 1.3 Thou/mm3 (1.0-4.8); Lymphocytes % (Auto) 11 % (10-50); Mean Corpuscular HGB Conc 34.3 g/dl (31.0-37.0); Mean Corpuscular Hemoglobin 33.3 pg (25.0-35.0); Mean Corpuscular Volume 97 fL (80-100); Monocytes # (Auto) 1.2 Thou/mm3 (0.0-0.8); Monocytes % (Auto) 10 % (0-12); Neutrophils # (Auto) 9.1 Thou/mm3 (1.8-7.7); Neutrophils % (Auto) 78 % (37-80); Nucleated Red Blood Cell # 0.00 Thou/mm3 (0.00-0.00); Nucleated Red Blood Cell % 0 /100 WBC (0); Platelet Count 123 Thou/mm3 (140-440); RDW Standard Deviation 44.2 fL (35.1-43.9); Red Blood Count 4.15 Miln/mm3 (4.50-5.90); White Blood Count 11.7 Thou/mm3 (3.8-10.6)
[2024-12-08 06:20] LABS: Alanine Aminotransferase 19 U/L (10-49); Albumin, Serum 3.5 gm/dL (3.4-4.8); Albumin/Globulin Ratio 1.4 (1.2-2.2); Alkaline Phosphatase 69 U/L (46-116); Anion Gap 14 (7-16); Aspartate Amino Transferase 29 U/L (0-34); BUN/Creatinine Ratio 8 Ratio (12-20); Bilirubin,Total 0.5 mg/dL (0.3-1.2); Blood Urea Nitrogen 7 mg/dL (9-23); Calcium 8.7 mg/dL (8.3-10.6); Calcium (Corrected) 9.1 mg/dL (8.5-10.1); Carbon Dioxide 21.1 mMol/L (20.0-31.0); Chloride 104 mMol/L (98-107); Creatinine (Component) 0.9 mg/dL (0.6-1.3); Estimated Creatinine Clearance 75.5 mL/min (>60); Globulin 2.5 gm/dL (2.3-3.5); Glucose 91 mg/dL (74-106); Magnesium 2.1 mg/dL (1.6-2.6); Osmolality,Calculated 275 (275-295); Phosphorous 3.3 mg/dL (2.4-5.1); Potassium 4.0 mMol/L (3.4-5.1); Sodium 139 mMol/L (136-145); Total Protein 6.0 gm/dL (5.7-8.2); eGFR > 60 See Note
[2024-12-08] MEDS: LOSARTAN POTASSIUM 25 MG TABLET 50 MG PO (09:00)
[2024-12-08] MEDS: cefTRIAXone/D5w 1gm IV premix 1 GM/50 ML BAG IV (09:01)
[2024-12-08] MEDS: FOLIC ACID 1 MG TABLET PO (09:01)
--- NOTE | 2024-12-08 09:20 | PC.SS ---
Follow up note: On CWAL protocol. On IV antibiotic. Pt will return home upon dc.
[2024-12-08] MEDS: PHENobarbital Inj 130 MG, SODIUM CHLORIDE 0.9% FLUSH 12 ML IVP (09:22)
--- NOTE | 2024-12-08 13:55 | ESPR_ITS ---
<Statement entered by Salinas Blake MD - 12/09/24 17:23> Patient is downgraded overnight from ICU. Admitted for alcohol withdrawal. Received phenobarbital dose and diazepam 20 mg overnight. CIWA is around 2 at the time of examination and denies any other complaints. Patient was educated on the alcohol cessation. Labs are significant for mildly elevated WBC, 11.7. Started phenobarbital taper to 1 dose today and as needed lorazepam. Anticipated discharge in 24 to 48 hours I have personally seen and examined the patient, agree with residents assessment and plan Patient plan of care was discussed with the attending physician, Dr. Vangie Blake, PGY2 Documentation for date of: 12/08/24 Subjective Subjective Interval history: Overnight events: Patient had CIWA of 23 overnight, including whole body shaking. Patient was given evening phenobarbital dose and diazepam 20 mg. Patient was seen and examined at bedside. AM vitals and labs reviewed. Patient appears not to be in acute distress at this time. CIWA 1. Encouraged safe alcohol cessation for the future. WBC 11.7. Continue phenobarbital taper, will observe how patient does without phenobarbital tomorrow. Patient did receive 1 dose of phenobarbital today. Review of systems otherwise negative except for what is mentioned above. Exam Vital Signs Temp Pulse Resp BP Pulse Ox O2 Del Method O2 Flow Rate 97.3 F 77 17 136/76 H 98 Room Air 1 12/08/24 12:00 12/08/24 12:12/08/24 12:12/08/24 12:12/08/24 12:12/08/24 12:12/08/24 08:00 Narrative Exam Physical Exam: General: Alert, no acute distress. Skin: Warm, dry, intact. Head: Normocephalic, atraumatic. Eye: Normal conjunctiva, PERRL. Throat: Oral mucosa moist. No obvious lesions in oropharynx. Cardiovascular: Regular rate and rhythm, no murmur, +S1/S2. Respiratory: Lungs are clear to auscultation, respirations unlabored, no crackles, no wheezing. Gastrointestinal: Soft, nontender, non-distended. No guarding or rebound tenderness. Extremities: No edema, no cyanosis, no clubbing. 2+ radial pulse bilaterally, 2+ pedal pulse bilaterally. Neuro: No focal deficits observed. Conversant, moving all extremities. No overt cerebellar signs/incoordination. Psychiatric: Cooperative, appropriate affect. Objective Labs 12/08/24 05:06 12/08/24 05:06 Labs: Laboratory Results - last 24 hr 12/08/24 05:06 WBC 11.7 H RBC 4.15 L Hgb 13.8 Hct 40.2 L MCV 97 MCH 33.3 MCHC 34.3 RDW Std Deviation 44.2 H Plt Count 123 L Neut % (Auto) 78 Lymph % (Auto) 11 [place] % (Auto) 10 Eos % (Auto) 0 Baso % (Auto) 0 Neut # (Auto) 9.1 H Lymph # (Auto) 1.3 [place] # (Auto) 1.2 H Eos # (Auto) 0.0 Baso # (Auto) 0.0 Immature Gran # (Auto) 0.05 H Absolute Nucleated RBC 0.00 Immature Gran % 0 Nucleated RBC % 0 Sodium 139 Potassium 4.0 Chloride 104 Carbon Dioxide 21.1 Anion Gap 14 BUN 7 L Creatinine 0.9 Estim Creat Clear Calc 75.5 eGFR > 60 BUN/Creatinine Ratio 8 L Glucose 91 Calculated Osmolality 275 Calcium 8.7 Corrected Calcium 9.1 Phosphorus 3.3 Magnesium 2.1 Total Bilirubin 0.5 AST 29 ALT 19 Alkaline Phosphatase 69 Total Protein 6.0 Albumin 3.5 Globulin 2.5 Albumin/Globulin Ratio 1.4 Quality Measures Quality Measures VTE prophylaxis Advance care planning discussed with:: patient Assessment & Plan Assessment Current Active Medications: Generic Name Dose Route Start Last Admin Trade Name Freq PRN Reason Stop Dose Admin Acetaminophen 650 mg 12/06/24 23:00 12/07/24 21:32 Acetaminophen 325 Mg Tablet PO 01/05/25 22:59 650 mg Q4HR PRN Administration PAIN SCALE 1-3 (mild Al Hydrox/Mg Hydrox/Simethicone 30 ml 12/06/24 23:00 Mg Hyd/Al Hyd/Maritza (Maalox Reg) Susp 30 Ml Udc PO 01/05/25 22:59 Q4HR PRN Heartburn or Upset Stomach Dextrose 25 ml 12/06/24 23:20 Dextrose 50%-Water Inj 50 Ml Syringe IV 01/05/25 23:19 Q15MIN PRN BG 50-70 responsive npo pt Dextrose 50 ml 12/06/24 23:20 Dextrose 50%-Water Inj 50 Ml Syringe IV 01/05/25 23:19 Q15MIN PRN BG <50 OR BG <70 & pt unresponsive Diazepam 5 mg 12/06/24 23:07 Diazepam Inj 5 Mg/Ml Vial 2 Ml IVP X1 PRN Breakthrough Agitation Diazepam 20 mg 12/06/24 23:32 12/07/24 21:08 Diazepam Inj 5 Mg/Ml Vial 2 Ml IVP 12/11/24 23:06 20 mg Q1HR PRN Administration CIWA 20-25 Diazepam 10 mg 12/06/24 23:32 Diazepam Inj 5 Mg/Ml Vial 2 Ml IVP 12/11/24 23:06 Q2HR PRN CIWA SCORE 14-19 Diazepam 5 mg 12/06/24 23:32 Diazepam Inj 5 Mg/Ml Vial 2 Ml IVP 12/11/24 23:06 Q1HR PRN CIWA 8-13 Folic Acid 1 mg 12/07/24 09:00 12/08/24 09:01 Folic Acid 1 Mg Tablet PO 01/06/25 08:59 1 mg QDAY RANDA Administration Glucagon 1 mg 12/06/24 23:20 Glucagon Inj 1 Mg Vial IM Q15MIN PRN BG <70, and no IV access Ceftriaxone Sodium/Dextrose 1 gm in 50 mls @ 100 mls/hr 12/07/24 08:06 12/08/24 09:01 Rocephin/D5w 1gm Iv Premix IV 12/14/24 08:05 100 mls/hr QDAY RANDA Administration Insulin Human Lispro 0 unit 12/07/24 07:30 12/08/24 11:42 Insulin Lispro (Admelog) 1 Unit/0.01 Ml Unit SC 01/06/25 07:29 Not Given AC RANDA Protocol Lorazepam 0.5 mg 12/06/24 23:30 Lorazepam 0.5 Mg Tablet PO 12/11/24 23:29 Q4H PRN CIWA 2-6 Losartan Potassium 50 mg 12/08/24 09:00 12/08/24 09:00 Losartan Potassium 25 Mg Tablet PO 01/07/25 08:59 50 mg QDAY RANDA Administration Magnesium Hydroxide 30 ml 12/06/24 23:00 Milk Of Magnesia Susp 30 Ml Udc PO 01/05/25 22:59 QDAY PRN CONSTIPATION Plan Mr. Tejada is a 64-year-old male with history of hypertension, BPH s/p prostate biopsy, and T2DM, presented to [facility] ED on 12/06 for complaints of whole body shaking. The patient was admitted to the ICU for management of alcohol withdrawal and downgraded to medical floors on 12/07 for further management. #Alcohol withdrawal #Thrombocytopenia #Alcohol abuse disorder #Sinus tachycardia, resolved Patient does report drinking about 12 packs of beer a day along with at least 2 shots of vodka a day. Patient stopped abruptly, last drink was 12/03. Patient presented with increased anxiety and whole body shaking in the ED. Patient was initially admitted to ICU for management, but was downgraded to medical floors on 12/07 given stability. Patient is noted to have platelet of 126 on 12/07, likely secondary to alcohol abuse disorder. Plan: [facility] protocol Phenobarbital 130 mg once daily, if tolerated then discontinue on 12/09 Lorazepam 0.5 mg every 4 hours as needed Continue to monitor daily for symptoms Continue to monitor platelets, will transfuse if less than 20 per protocol Counseled patient on safe alcohol cessation Referral to social sciences department chair #BPH, s/p prostate biopsy 12/05 #?Prostatitis #Leukocytosis, likely reactive, resolving #Hematuria Patient does have a history of BPH, follows Dr. Daigle outpatient for management. Patient had a prostate biopsy on 12/05. Patient did have a elevated white count of 12.2 on 12/05, but this is likely reactive from the biopsy. Patient is noted to have a heart rate of 125 and temperature of 100.5 in ED, but did go up to 104.9 in the ICU. Timeframe does not quite match up with acute prostatitis, and patient does not have any symptoms other than elevated heart rate and temperature, which could be secondary to withdrawal symptoms. Patient was prescribed antibiotics after the procedure, but has not been compliant. Hematuria on UA likely secondary to recent prostate biopsy. Plan: Ceftriaxone 1 g daily (12/06 - 12/20) Blood culture collected 12/06, No growth after 24 hours Urine culture x 2 collected 12/06, pending #Non-insulin dependent type 2 diabetes mellitus #Glycosuria Patient does have a history of T2DM. Patient takes Jardiance and tirzepatide for management outpatient. For blood glucose on UA is likely secondary from Jardiance use. Hemoglobin A1c 6.4% Plan: Continue to hold Jardiance Sliding scale insulin step 1 #Primary hypertension Patient does have a history of hypertension. Patient takes losartan at home. Plan: Resume home losartan 50 mg daily DVT Prophylaxis: SCDs GI Prophylaxis: N/A Bowel: N/A Diet: Consistent carbohydrate Brady: N/A Lines: Peripheral IV Antibiotics: Ceftriaxone (12/06 - 12/20) Code Status: FULL Reason for Hospitalization: Alcohol withdrawal Other Barriers to Discharge: Phenobarbital taper Patient plan of care was discussed with the attending physician Dr. Vences and senior resident Dr. Blake PGY-2 Jerome Griffith, PGY1 Attending Provider Attestation/Addendum Face to face evaluation was performed by me. I have personally seen and examined the patient. I discussed the assessment and plan with the entire medicine team. I reviewed available medical records, imaging studies, laboratory results. I agree with the above subjective data, objective findings, assessment and plan except as corrected by me or noted below Alcohol withdrawal seizures Encephalopathy due to above, delirium due to above Essential hypertension Microscopic hematuria History of prostate biopsy few days ago Continue to wean phenobarbital plan to discontinue later today keep on as needed Ativan required some PRNs since yesterday monitor closely plan to DC tomorrow stop antibiotics for now. His microscopic hematuria could be from his recent prostate biopsy, if develops fever or dysuria he can resume antibiotics. If prostatitis is a concern. He will need urology follow-up to obtain accurate cultures which he treated as an acute with 2 weeks of antibiotics?then Bactrim or ciprofloxacin will be preferred in his case. More than > 30 minutes spent on the encounter
[2024-12-09] VITALS: BP 137/76; PULSE 80; PULSE 85; RESP 23; TEMP 36.1; O2SAT 93
[2024-12-09 04:00] VITALS: BP 126/68; PULSE 80; RESP 21; TEMP 36.2; O2SAT 96
[2024-12-09 06:14] LABS: Basophils # (Auto) 0.1 Thou/mm3 (0.0-0.2); Basophils % (Auto) 1 % (0-2.5); Eosinophils # (Auto) 0.1 Thou/mm3 (0.0-0.5); Eosinophils % (Auto) 1 % (0-10); Hematocrit 40.7 % (41.0-53.0); Hemoglobin 14.0 g/dL (13.5-16.0); Immature Granulocytes Auto 0.06 Thou/mm3 (0.00-0.00); Lymphocytes # (Auto) 1.9 Thou/mm3 (1.0-4.8); Lymphocytes % (Auto) 17 % (10-50); Mean Corpuscular HGB Conc 34.4 g/dl (31.0-37.0); Mean Corpuscular Hemoglobin 33.3 pg (25.0-35.0); Mean Corpuscular Volume 97 fL (80-100); Monocytes # (Auto) 1.5 Thou/mm3 (0.0-0.8); Monocytes % (Auto) 14 % (0-12); Neutrophils # (Auto) 7.3 Thou/mm3 (1.8-7.7); Neutrophils % (Auto) 67 % (37-80); Nucleated Red Blood Cell # 0.00 Thou/mm3 (0.00-0.00); Nucleated Red Blood Cell % 0 /100 WBC (0); Platelet Count 152 Thou/mm3 (140-440); RDW Standard Deviation 44.1 fL (35.1-43.9); Red Blood Count 4.20 Miln/mm3 (4.50-5.90); White Blood Count 10.9 Thou/mm3 (3.8-10.6)
[2024-12-09 06:43] LABS: Alanine Aminotransferase 12 U/L (10-49); Albumin, Serum 3.6 gm/dL (3.4-4.8); Anion Gap 13 (7-16); Aspartate Amino Transferase 21 U/L (0-34); BUN/Creatinine Ratio 11 Ratio (12-20); Bilirubin,Total 0.4 mg/dL (0.3-1.2); Blood Urea Nitrogen 9 mg/dL (9-23); Calcium 8.7 mg/dL (8.3-10.6); Calcium (Corrected) 9.0 mg/dL (8.5-10.1); Carbon Dioxide 21.4 mMol/L (20.0-31.0); Chloride 105 mMol/L (98-107); Creatinine (Component) 0.8 mg/dL (0.6-1.3); Estimated Creatinine Clearance 84.8 mL/min (>60); Globulin 2.8 gm/dL (2.3-3.5); Glucose 90 mg/dL (74-106); Magnesium 2.0 mg/dL (1.6-2.6); Osmolality,Calculated 276 (275-295); Phosphorous 2.1 mg/dL (2.4-5.1); Potassium 3.6 mMol/L (3.4-5.1); Sodium 139 mMol/L (136-145); Total Protein 6.4 gm/dL (5.7-8.2); eGFR > 60 See Note
[2024-12-09 06:44] LABS: Albumin/Globulin Ratio 1.3 (1.2-2.2); Alkaline Phosphatase 78 U/L (46-116)
[2024-12-09 07:50] VITALS: BP 135/80; PULSE 78; RESP 18; TEMP 36.4; O2SAT 95
[2024-12-09 08:00] VITALS: PULSE 82
[2024-12-09 09:00] VITALS: BP 132/70; PULSE 82
[2024-12-09] MEDS: FOLIC ACID 1 MG TABLET PO (09:00)
[2024-12-09] MEDS: cefTRIAXone/D5w 1gm IV premix 1 GM/50 ML BAG IV (09:00)
[2024-12-09] MEDS: NAPH,KPH MBDB 1 PACKET (1.5 GM) PO (09:00)
[2024-12-09] MEDS: LOSARTAN POTASSIUM 25 MG TABLET 50 MG PO (09:00)
--- NOTE | 2024-12-09 09:47 | PD.RESDS ---
Planned Discharge Date 12/09/24 DS: Providers Provider Date of admission: 12/06/24 23:00 Primary care physician: Guillaume Hammer PA-C Admitting Provider: Stephanie Spann MD Attending Provider on Admission: Julio Cesar Vences MD Attending Provider on DC: RESIDENT Clemente Discharging Provider: RESIDENT Clemente Anticipated date of discharge: 12/09/24 DS: Diagnosis Problem List Completed Was Problem List Reviewed/Reconciled?: Yes Hospital Course Hospital Course Hospital course: Reason for hospitalization: Alcohol withdrawal Summary: This patient is a 64-year-old male with history of hypertension, BPH s/p prostate resection (follows Dr. Carlin), and T2DM, presented to [facility] ED on 12/06 for complaints of whole body shaking. The patient was admitted to the ICU for management of alcohol withdrawal. The patient normally drinks about 12 packs of beer and 2 shots of vodka daily, however stopped drinking abruptly 12/04 because he had to undergo ultrasound-guided prostate needle biopsy, which was done on 12/05. The patient's last drink was on 12/03. Patient was prescribed antibiotics after the procedure, however he was not compliant. The patient would feel feverish, chills, and whole body shaking in the evening after the procedure. The patient was initially evaluated in ED, however because of the long wait time, he left AMA. Symptoms continued and the patient received a call alerting him of elevated WBC, so the patient sought care at [facility] ED again on 12/06 as he was advised to return. In the ED, the patient received benzodiazepines and was started on phenobarbital. Patient was admitted to ICU, and was continued on phenobarbital and CIWA protocol. On 12/07, the patient was stable enough to be downgraded to medical floors. Patient did have a CIWA of 23 in the evening of 12/07, which was managed with phenobarbital and diazepam. Patient successfully completed phenobarbital taper without any additional events afterwards. On 12/09, patient received no phenobarbital and had no concern for alcohol withdrawal symptoms. Ceftriaxone was started in the hospital, however it was discontinued upon discharge as the patient completed a 4-day course and had very little symptoms, and only 1 of 2 urine cultures were positive for E. coli. Vitals and labs were stable. Patient is medically cleared to be discharged back home and advised to safely cease alcohol consumption. Discharge Recommendations: - Follow up with PCP within 1 week of discharge - Continue rest of medications as previously prescribed - Return to the ED or call EMS if symptoms return and/or worsen - Please take multivitamin once daily as prescribed - Please cease alcohol consumption, and if you continue to consume alcohol, please slowly discontinue drinking in the future to avoid withdrawal symptoms - Follow up with your urologist, Dr. Carlin, for further management of BPH and biopsy results If you don't have a PCP, you can make an appointment at the [facility]: [address] [place] [address] Hospital Diagnoses: #Alcohol withdrawal #Thrombocytopenia, resolved #Alcohol abuse disorder #Sinus tachycardia, resolved #BPH status post biopsies 12/05 #Leukocytosis, likely reactive, resolving #Hematuria #Non-insulin dependent type 2 diabetes mellitus #Glycosourea #Primary hypertension Patient plan of care was discussed with attending physician Dr. Marta Griffith, PGY-1 Status at Discharge Functional status at discharge: independent ambulation Overall status at discharge: patient is back to baseline Time Spent with Patient Time attestation: Total time spent providing and/or coordinating discharge services: 34 min Time spent: Greater than 30 minutes Exam Vital Signs Temp Pulse Resp BP Pulse Ox O2 Del Method O2 Flow Rate 97.1 F 82 21 H 132/70 H 96 Room Air 1 12/09/24 04:00 12/09/24 09:00 12/09/24 04:00 12/09/24 09:00 12/09/24 04:00 12/09/24 04:00 12/08/24 08:00 Narrative Exam Physical Exam: General: Alert, no acute distress. Skin: Warm, dry, intact. Head: Normocephalic, atraumatic. Eye: Normal conjunctiva, PERRL. Throat: Oral mucosa moist. No obvious lesions in oropharynx. Cardiovascular: Regular rate and rhythm, no murmur, +S1/S2. Respiratory: Lungs are clear to auscultation, respirations unlabored, no crackles, no wheezing. Gastrointestinal: Soft, nontender, non-distended. No guarding or rebound tenderness. Extremities: No edema, no cyanosis, no clubbing. 2+ radial pulse bilaterally, 2+ pedal pulse bilaterally. Neuro: No focal deficits observed. Conversant, moving all extremities. No overt cerebellar signs/incoordination. Psychiatric: Cooperative, appropriate affect. Discharge Plan Plan Patient Disposition: HOME (Self Care) Patient condition on transfer: Stable Care Plan Goals: Please take a multivitamin once a day and stop drinking alcohol Continue all other home medications Follow-up with your Primary Care Physician within 1 week after discharge or follow-up at the [facility] - [address] [place], [place] [id number] Please follow-up with urologist Dr. Carlin for biopsy and cystoscopy results If your symptoms worsen or if you develop new chest pain, shortness of breath, bleeding or dizziness - please come back to the Emergency Department immediately Prescriptions/Referrals Prescriptions/Med Rec: New Complete MV Adult 50 Plus 0.4 mg-300 mcg- 250 mcg tablet 1 tab PO QDAY 30 Days Qty: 30 0RF Continued losartan 50 mg Tablet 50 mg PO QDAY metformin 1,000 mg Tablet 1,000 mg PO BID aspirin 81 mg Tablet 81 mg PO QDAY Jardiance 25 mg tablet 25 mg PO DAILY atorvastatin 20 mg tablet 20 mg PO DAILY Mounjaro 5 mg/0.5 mL pen injector 5 mg subcut QWEEK Discontinued multivitamin,ym-cyfj-Kd-FA-min Tablet 1 tab PO DAILY Referrals: Guillaume Hammer PA-C [Primary Care Provider] Patient/Caregiver Discharge Instructions Education Materials: Social Drinking vs Problem Drinking, What is Hematuria?, Hematuria: Possible Causes, Alcohol Withdrawal: What to Expect Print Language: French Stand Alone Forms: Valarie Award Info., Patient Portal Info Letter Discharge Order Discharge Orders: Discharge (Routine); Ordered 12/09/24 Ordered By: Gus Dennis Quality Discharge Quality Measures VTE prophylaxis Attestestation MD Attestation I attest that I was physically present for the evaluation, physical examination, lab and imaging review of the patient with the residents. I discussed the case with the residents and agree with the findings and plans of care as documented above. Patient is a 64 years old male with past medical history of hypertension, BPH s/p resection, diabetes mellitus who presented to the ED with complaint of whole body shaking. Patient was initially admitted to ICU for management of alcohol withdrawal. She was then transferred to medical floor after stabilization. Patient continued to improve, have improvement in his CIWA score. Phenobarbital has been tapered successfully, last dose yesterday. Does not have any concern for symptoms of alcohol withdrawal today. Patient received IV Rocephin for possible UTI, urine culture came back positive for E. coli but only 10-20,000 colonies, patient currently does not have any urinary symptoms. Patient stable for discharge home on multivitamins. Recommended to follow-up with PCP and urology in 1 to 2 weeks of discharge. Counseled strongly against alcohol abuse. Pam Lozano MD
[2024-12-09 11:28] VITALS: BP 142/84; PULSE 73; RESP 28; TEMP 35.8; O2SAT 96
== END 2024-12-09 11:36 | disposition home or self-care (01) | DRG 896 ==
LOC: SERX 20:44 → SERHOLD 23:18 → S2SX 23:37 → S3SX 12-07 10:21
PROVIDERS: Nurse Practitioner Family; Student in an Organized Health Care Education/Training Program; Admitting Provider Student in an Organized Health Care Education/Training Program; Emergency Provider Emergency Medicine; PCP Physician Assistant Medical; Visit Provider Internal Medicine
DX: F10.239 Alcohol dependence with withdrawal, unspecified (principal); G93.41 Metabolic encephalopathy; N41.0 Acute prostatitis; I10 Essential (primary) hypertension; N40.0 Benign prostatic hyperplasia without lower urinary tract symptoms; E11.9 Type 2 diabetes mellitus without complications; R00.0 Tachycardia, unspecified; R31.0 Gross hematuria; R81 Glycosuria; R80.9 Proteinuria, unspecified; D72.829 Elevated white blood cell count, unspecified; D69.6 Thrombocytopenia, unspecified; F41.9 Anxiety disorder, unspecified; Z91.148 Patient's other noncompliance with medication regimen for other reason; Z90.49 Acquired absence of other specified parts of digestive tract; Z79.84 Long term (current) use of oral hypoglycemic drugs; Z79.85 Long-term (current) use of injectable non-insulin antidiabetic drugs; Z79.899 Other long term (current) drug therapy; Z90.79 Acquired absence of other genital organ(s); Z91.199 Patient's noncompliance with other medical treatment and regimen due to unspecified reason
CPT/HCPCS: 36415; 71046; 80053; 80307; 80320; 81001; 83036; 83605; 83735; 83880; 84100; 84484; 85025; 87040; 87077; 87081; 87086; 87186; 87811; 93005; 96361; 96365; 96375; 96376; 99284; A4216; J0696; J2543; J2560; J3360; J3411; J3490; J7030; J7050; J7120; A9270; G0480

== ENCOUNTER 2025-01-01 11:49 | Observation (INO) | payer MEDICARE, SELFPAY ==
[2025-01-01 12:16] VITALS: BP 121/74; PULSE 98; RESP 18; TEMP 37.1; O2SAT 97; BMI 31.4
--- NOTE | 2025-01-01 12:20 | EKG_ITS ---
[facility] Test Date: 2025-01-01 Pat Name: MOISES FAIRBANKS Department: Room: - Gender: Male [employer] Aide: : 1960 Requested By: Yuval Richter (LAURIE) Order Number: [id number] Reading MD: Yuval Richter (FREELANCE INTERPRETER/TRANSLATOR) Measurements Intervals Chancellor Rate: 87 P: OK: QRS: -58 QRSD: 91 T: 32 QT: 336 QTc: 405 Interpretive Statements SINUS RHYTHM WITH 2ND DEGREE AV BLOCK, 2:1 OR MOBITZ TYPE II LEFT ANTERIOR FASCICULAR BLOCK [QRS AXIS <= -45, QR IN I, RS IN II] POSSIBLE ANTERIOR MYOCARDIAL INFARCTION , PROBABLY OLD [30 ms Q WAVE IN V3/V4, OR R < 0.2 mV IN V4] CRITICAL TEST RESULT Compared to ECG 12/06/2024 17:29:25 Sinus tachycardia no longer present Myocardial infarct finding still present /store/S0/[id number]/ecg/[id number].pdf
--- NOTE | 2025-01-01 12:20 | XR_ITS ---
Examination: PA lateral chest 2 views TECHNIQUE: Upright PA lateral chest 2 views Date and time: January 01, 2025, 1319 hours INDICATIONS: Coughing shortness of breath beginning 2 days ago. FINDINGS: Normal heart size. Lungs are clear. Moderate thoracic spondylosis. IMPRESSION: No active disease.
--- NOTE | 2025-01-01 12:21 | PD.EDRME ---
Rapid Medical Screening Exam RME Arrival date/time: 01/01/25 11:49 64-year-old male presents to the emergency department today for complaints of abdominal pain, fatigue frequency and dysuria. Chief Complaint: Abdominal Pain Time Seen by Provider: 01/01/25 12:18 Vital signs: Vital Signs Temperature 98.7 F 01/01/25 12:16 Pulse Rate 98 01/01/25 12:16 Respiratory Rate 18 01/01/25 12:16 Blood Pressure 121/74 01/01/25 12:16 Pulse Oximetry (%) 97 01/01/25 12:16 Oxygen Delivery Method Room Air 01/01/25 12:16
[2025-01-01 12:55] LABS: Lactate (Lactic Acid) 1.9 mMol/L (0.4-2.0)
[2025-01-01 12:58] LABS: Basophils # (Auto) 0.1 Thou/mm3 (0.0-0.2); Basophils % (Auto) 0 % (0-2.5); Eosinophils # (Auto) 0.0 Thou/mm3 (0.0-0.5); Eosinophils % (Auto) 0 % (0-10); Hematocrit 43.8 % (41.0-53.0); Hemoglobin 14.6 g/dL (13.5-16.0); Immature Granulocytes Auto 0.18 Thou/mm3 (0.00-0.00); Lymphocytes # (Auto) 1.6 Thou/mm3 (1.0-4.8); Lymphocytes % (Auto) 7 % (10-50); Mean Corpuscular HGB Conc 33.3 g/dl (31.0-37.0); Mean Corpuscular Hemoglobin 32.3 pg (25.0-35.0); Mean Corpuscular Volume 97 fL (80-100); Monocytes # (Auto) 1.4 Thou/mm3 (0.0-0.8); Monocytes % (Auto) 6 % (0-12); Neutrophils # (Auto) 19.1 Thou/mm3 (1.8-7.7); Neutrophils % (Auto) 86 % (37-80); Nucleated Red Blood Cell # 0.00 Thou/mm3 (0.00-0.00); Nucleated Red Blood Cell % 0 /100 WBC (0); Platelet Count 202 Thou/mm3 (140-440); RDW Standard Deviation 43.9 fL (35.1-43.9); Red Blood Count 4.52 Miln/mm3 (4.50-5.90); White Blood Count 22.2 Thou/mm3 (3.8-10.6)
[2025-01-01 13:25] LABS: Alanine Aminotransferase 16 U/L (10-49); Albumin, Serum 4.6 gm/dL (3.4-4.8); Albumin/Globulin Ratio 1.5 (1.2-2.2); Alkaline Phosphatase 88 U/L (46-116); Anion Gap 16 (7-16); Aspartate Amino Transferase 17 U/L (0-34); BUN/Creatinine Ratio 8 Ratio (12-20); Bilirubin,Total 0.7 mg/dL (0.3-1.2); Blood Urea Nitrogen 8 mg/dL (9-23); Calcium 10.0 mg/dL (8.3-10.6); Calcium (Corrected) 10.0 mg/dL (8.5-10.1); Carbon Dioxide 21.7 mMol/L (20.0-31.0); Chloride 101 mMol/L (98-107); Creatinine (Component) 1.0 mg/dL (0.6-1.3); Estimated Creatinine Clearance 65.7 mL/min (>60); Globulin 3.1 gm/dL (2.3-3.5); Glucose 102 mg/dL (74-106); Lipase 42 U/L (12-53); Osmolality,Calculated 275 (275-295); Potassium 4.2 mMol/L (3.4-5.1); Procalcitonin 0.72 ng/ml (0.0-0.49); Sodium 139 mMol/L (136-145); Total Protein 7.7 gm/dL (5.7-8.2); Troponin I < 0.002 ng/mL (0.0-0.045); eGFR > 60 See Note
[2025-01-01 14:42] LABS: Collection Type, Urine Clean Catch
[2025-01-01 14:49] LABS: Bacteria,Urine 1+; Bilirubin,Urine Negative (Negative); Blood,Urine 2+ (Negative); Color,Urine Yellow (Lt Yel-Yel); Glucose, Urine 4+ (Negative); Hyaline Casts,Urine < 1 /hpf (0-1); Ketones,Urine 4+ (Negative); Leukocyte Esterase,Urine Positive (Negative); Nitrite,Urine Positive (Negative); PH,Urine 6.0 (5.0-7.0); Protein,Urine 1+ (Neg - Trace); RBC,Urine 72 /hpf (0-3); Specific Gravity,Urine 1.032 (1.001-1.035); Squamous Epithelial Cell,Urine < 1 /hpf (0-5); Urobilinogen,Urine Negative mg/dL (0.0-1.0); WBC,Urine 347 /hpf (0-5)
[2025-01-01 15:11] LABS: Clarity,Urine Hazy (Clear/Hazy)
--- NOTE | 2025-01-01 15:18 | XR_ITS ---
Examination: CT abdomen and pelvis without contrast. Coronal 3-D reconstructions. Sagittal 2-D reconstructions. Date and time of exam:January 01, 2025, 1621 hrs. Indications: Abdominal pain dysuria beginning 3 days ago CTDI: vol (mGy): 8.06 DLP: (mGycm): 512 Technique: Axial images of the abdomen have been obtained, 3 mm slice thickness Intravenous contrast material has not been administered. Low dose protocols were performed. One or more of the following dose reduction techniques were used; automated exposure control, adjustment of the mA and/or KV according to patient size, use of iterative reconstruction technique. Findings: 3 mm pulmonary nodule right upper lobe, 3 mm pulmonary nodule left lower lobe 4 mm right lobe liver cyst No visualized liver or splenic lesion Gallbladder not visualized No pancreatic or adrenal mass Perinephric stranding No renal or ureteral calculi Aorta normal size Normal appendix No bowel obstruction Prostate is abnormally irregular in contour, axial image 191, measuring 6.2 cm in AP dimension Urinary bladder wall is thickened up to 9 mm Prominent osteopenia Impression: Small pulmonary nodules as above Perinephric stranding, consider urinary tract infection No renal or ureteral calculi Normal appendix Abnormal prostate, enlarged and irregular in contour, recommend correlation with PSA and consider transrectal prostate sonography follow-up Urinary bladder wall is thickened up to 9 mm, differential would include cystitis, urinary tract outflow obstruction secondary to the patient's prostatomegaly Negative for osteoblastic metastatic disease
--- NOTE | 2025-01-01 17:51 | PD.EDADULT ---
ED General RME/HPI General Chief complaint: Abdominal Pain Stated complaint: ABD PAIN, DIZZY, BLACK STOOLS Time Seen by Provider: 01/01/25 12:18 Arrival date/time: 01/01/25 11:49 RME / HPI RME / HPI narrative: 64-year-old male patient with significant history of hypertension diabetes mellitus, enlarged prostate, was brought in by family for evaluation regarding dysuria. Patient's been having worsening dysuria for the last 2 days associated with nausea, but denies any vomiting feels like having a fever, and not feeling well. Patient symptoms getting worst today. Patient took Bactrim since yesterday. Patient also noticed black/dark-colored stool since few days ago. Been taking iron supplement.. Patient denies any other complaints medication was taken prior to ER visit. Related Data Home Medications ?Medication ?Instructions ?Recorded ?Confirmed aspirin 81 mg tablet 81 mg PO QDAY 05/07/20 12/06/24 losartan 50 mg tablet 50 mg PO QDAY 05/07/20 12/06/24 metformin 1,000 mg tablet 1,000 mg PO BID 05/07/20 12/06/24 atorvastatin 20 mg tablet 20 mg PO DAILY 12/04/24 12/06/24 empagliflozin 25 mg tablet 25 mg PO DAILY 12/04/24 12/06/24 (Jardiance) tirzepatide 5 mg/0.5 mL 5 mg subcut QWEEK 12/04/24 12/06/24 subcutaneous pen injector (Sylvester) Previous Rx's ?Medication ?Instructions ?Recorded tcdjszfs-krw-xirtg acid 0.4 1 tab PO QDAY 1 month #30 tabs 12/09/24 mg-lycopene 300 mcg-lutein 250 mcg tablet (Complete Multivitamin Adult 50 Plus) Allergies Allergy/AdvReac Type Severity Reaction Status Date / Time No Known Allergies Allergy Unknown Verified 01/01/25 11:53 Review of Systems Review of Systems Narrative Review of Systems: Review of system reviewed and within normal limits except mentioned in HPI ED Exam Narrative Physical exam: VITAL SIGNS: Reviewed. GENERAL APPEARANCE: Alert and interactive, follows commands, no acute distress, HEAD AND FACE: Non-traumatic. ENT: PERRL, pink conjunctivitis, eyelid no trauma, Mucous membrane moist. NECK: Supple, nontender, no nuchal rigidity. CHEST: No tenderness, no crepitus, no paradoxical movement, no retractions. LUNGS: Clear, well ventilated, symmetric, no rales, no wheezing, no ronchi, no stridor, good breath sounds bilaterally. HEART: Regular rate, regular rhythm, no murmur, no gallops. ABDOMEN: Soft, positive bowel sounds, nondistended, no guarding, nontender, no rebound, no masses, RECTAL: I did a rectal exam, negative for blood color stool, negative for occult blood. GENITAL: Deferred. NEUROLOGICAL: Gross motor function intact sensory function intact, Appropriate for age. MUSCULOSKELETAL: low back nontender, full range of motion. EXTREMITIES: Nontender, full range of motion. SKIN: Color pink, dry, no rash, no lacerations, no abrasions, no contusions. LYMPHATICS: Deferred. Course Quality Measures none Orders Category Date Time Status COVID-19 Screening Questionnaire NOW Care 01/01/25 17:45 Active Decision to Admit X1 Care 01/01/25 17:44 Active EKG (ED ONLY) *Do not use* NOW Care 01/01/25 12:20 Completed Occult Blood,Stool (Nursing) ONCE Care 01/01/25 13:[address] abdomen pelvis wo con Stat Exams 01/01/25 15:18 Completed EKG (ED Only) Stat Exams 01/01/25 12:20 Draft XR chest 2V Stat Exams 01/01/25 12:20 Completed Blood Culture (Lab) Stat Lab 01/01/25 12:41 Received CBC Stat Lab 01/01/25 12:37 Completed Comprehensive Metabolic Panel Stat Lab 01/01/25 12:37 Completed Lactate (Lactic Acid) Stat Lab 01/01/25 12:37 Completed Lipase Stat Lab 01/01/25 12:37 Completed Procalcitonin Stat Lab 01/01/25 12:37 Completed Troponin I Stat Lab 01/01/25 12:37 Completed Urinalysis Stat Lab 01/01/25 14:28 Completed Urine Culture Stat Lab 01/01/25 14:28 Received Ondansetron Inj [Zofran Inj] Med 01/01/25 17:44 Discontinued 4 mg IVP X1 ONE Ringers Lactated 1000 ml [Lactated Ringers] 1,000 ml Med 01/01/25 17:45 Active IV 999 mls/hr cefTRIAXone/D5w 1gm IV premix [Rocephin/D5w 1gm IV Med 01/01/25 17:45 Active premix] 1 gm in 50 ml IV X1 Vital Signs Vital signs: Vital Signs Temperature 98.7 F 01/01/25 12:16 Pulse Rate 98 01/01/25 12:16 Respiratory Rate 18 01/01/25 12:16 Blood Pressure 121/74 01/01/25 12:16 Pulse Oximetry (%) 97 01/01/25 12:16 Oxygen Delivery Method Room Air 01/01/25 12:16 Discharge Plan Plan Patient Disposition: Admit Acute Care w/in Hospital Prescriptions/Referrals Prescriptions/Med Rec: No Action losartan 50 mg Tablet 50 mg PO QDAY metformin 1,000 mg Tablet 1,000 mg PO BID aspirin 81 mg Tablet 81 mg PO QDAY Jardiance 25 mg tablet 25 mg PO DAILY atorvastatin 20 mg tablet 20 mg PO DAILY Mounjaro 5 mg/0.5 mL pen injector 5 mg subcut QWEEK Complete MV Adult 50 Plus 0.4 mg-300 mcg- 250 mcg tablet 1 tab PO QDAY 30 Days Qty: 30 0RF Referrals: Gaston Escobedo MD [Primary Care Provider, Family Practice] - In 1 week Problem List Clinical Impression: Acute pyelonephritis Patient/Caregiver Discharge Instructions Print Language: Turkish Stand Alone Forms: Valarie Award Info., Patient Portal Info Letter MDM Narrative MDM hospital course (for use when minimal MDM required): 64-year-old male patient with significant history of hypertension diabetes mellitus, enlarged prostate, was brought in by family for evaluation regarding dysuria. Patient's been having worsening dysuria for the last 2 days associated with nausea, but denies any vomiting feels like having a fever, and not feeling well. Patient symptoms getting worst today. Patient took Bactrim since yesterday. Patient also noticed black/dark-colored stool since few days ago. Been taking iron supplement.. Patient denies any other complaints medication was taken prior to ER visit. Rectal exam negative for occult blood. #4 Significant for leukocytosis of 22,000 neutrophil 86% urinalysis positive nitrite positive leukocyte esterase WBC count of 347. Positive bacteria CT scan of the abdomen pelvis showed Small pulmonary nodules as above Perinephric stranding, consider urinary tract infection No renal or ureteral calculi Normal appendix Abnormal prostate, enlarged and irregular in contour, recommend correlation with PSA and consider transrectal prostate sonography follow-up Urinary bladder wall is thickened up to 9 mm, differential would include cystitis, urinary tract outflow obstruction secondary to the patient's prostatomegaly Negative for osteoblastic metastatic disease Chest x-ray came back unremarkable] EKG showed normal sinus rhythm, ventricular to 97 bpm, no ST segment elevation or depression noted. Patient received IV fluids, IV ceftriaxone, and Zofran. Spoke with hospitalist, who admitted the patient Medication Administration(s) Medication Administration History Lactated Ringer's (Lactated Ringers) 1,000 mls @ 999 mls/hr IV .Q1H1M ONE Stop: 01/01/25 18:45 Ceftriaxone Sodium/Dextrose (Rocephin/D5w 1gm Iv Premix) 1 gm in 50 mls @ 100 mls/hr IV X1 ONE Stop: 01/01/25 18:14 Discontinued Medications Ondansetron HCl (Ondansetron Inj 2 Mg/Ml Inj 2 Ml) 4 mg IVP X1 ONE; Protocol Stop: 01/01/25 17:45
--- NOTE | 2025-01-01 18:39 | PD.RESHP ---
Documentation for date of: 01/01/25 Patient is a 64-year-old male with a past medical history of hypertension, diabetes mellitus type 2 [id number] on Mounjaro, hyperlipidemia, history of acute coronary syndrome, denied history of stents, and history of alcohol use disorder, now abstentent for over 1 month on Naltrexone. Patient presented to the emergency room with chieft complain of dysuria, polyuria, and naseau who failed outpatient antibiotics. Admitted on 01/01/[address] symptoms of [address] A/P of perinephric stranding w/ prostomegaly. Denied urinary retention or flomax use. Patient was started on Antibiotics, Zosyn. Urine Cultures ordered. Blood culture ordered. Bladder scan as needed. Hemturia noted on UA, per patient history recent prostate biopsy negative for prostate cancer, negative malignancy on path report. Patient likely benefit from Finasteride and outpatient follow up. - The patient's plan was discussed with attending Cal Erazo MD PGY2 Internal Medicine HPI History of Present Illness History of present illness: 64-year-old male patient with significant history of alcohol use disorder, hypertension, diabetes mellitus, past [place], enlarged prostate, was brought in by family for evaluation regarding dysuria. He reports dysuria with foul smelling urine and penile pain without discharge since last Sunday (9 days ago). He trialed a course of bactrim but his symptoms are persisting. He reports urinary urge peeing a large volume without urinary retention or hesitation. He feels like he is able to completely void with each urination. In addition to these symptoms he has had nausea and a fever and headache that he is treating at home with tylenol. He reports no sexual activity in the last couple of years because his does not want to have sex with him. He has long time alcoholism but recently stopped drinking this last month with the help of naltrexone 50mg. In the ED his vitals were stable, rectal exam negative for occult blood. Labs were significant for leukocytosis of 22,000 neutrophil 86% urinalysis positive nitrite positive leukocyte esterase WBC count of 347. CT scan of the abdomen pelvis showed small pulmonary nodules, perinephric stranding, abnormally enlarged prostate, thickened urinary bladder wall up to 9mm. EKG and chest xray were noncontributory. Patient received IV fluids, IV ceftriaxone, and Zofran. Patient admitted for IV abx treatment of pyelonephritis/UTI. Code: Full Insulin: No Medical Hx: alcohol use disorder, diabetes2, HTN, prostatomegaly. prior [place] Medications: Naltrexone 50mg, atorvastatin 20mg, metformin 1000mg BID, mounjaro, jardiance, losartan 50mg, aspirin 81mg Allergies: KNA Surgical history: Cataract removal, cholecystectomy Fhx: Dad - colon and prostate cancer, Mom -[place], brothers passed from esophagus and colon cancer. Living: With in a home Work: [employer] Alcohol: Quit 1 month ago, drank 12 beers/day since age 11 and 4-5 shots of vodka Cigarettes/tobacco: Denies Recreational drugs: Denies Patient admitted for: IV abx treatment of pyelonephritis/UTI. All 12 systems reviewed and were negative except otherwise stated in HPI. Exam Vital Signs Temp Pulse Resp BP Pulse Ox O2 Del Method 98.7 F 98 18 121/74 97 Room Air 01/01/25 12:16 01/01/25 12:16 01/01/25 12:16 01/01/25 12:16 01/01/25 12:16 01/01/25 12:16 Narrative Exam GENERAL APPEARANCE: AOx3. NAD, activity normal for age, well developed/ well nourished, no cyanosis, pallor, or diaphoresis. HEENT: Normocephalic atraumatic, no facial trauma, neck is supple. Lids/conjunctiva normal. Mucous membranes moist, nares normal, lips/teeth normal uvula midline without oral pharyngeal erythema, exudate or swelling TMs normal bilaterally. No lymphangitis/lymphedema. CARDIAC: Regular rate and rhythm, S1+S2 heard. No murmurs, rubs, or gallops noted RESPIRATORY: respiratory effort normal, speaks in full sentences, no tripod position, no accessory muscle use. Lungs clear to auscultation without rhonchi, wheezes, rales ABDOMINAL: NBS. Soft, ND/NT. No evidence of fluid wave. No pulsatile masses on exam, rebound tenderness, Solano sign or pain over Mcburney's point. Umbilical hernia reducible. Surgical scars along right anterior rib line from past open cholecystectomy MUSCLES/EXTREMITIES: No abnormal range of motion, no swelling. DERM: Warm, pink and dry. No rashes, dermatoses, petechiae or lesions. NEUROLOGICAL: Speech is clear and appropriate. Normal level of consciousness. Gait and coordination are normal. 5/5 strength in all extremities. PSYCH: Normal mood and affect. Judgement/competence is appropriate : Negative for CVA tenderness. Declined genital exam Results: Labs 01/02/25 04:43 01/02/25 04:43 Labs: Short CBC 01/01/25 Range/Units 12:37 WBC 22.2 H (3.8-10.6) Thou/mm3 Hgb 14.6 (13.5-16.0) g/dL Hct 43.8 (41.0-53.0) % Plt Count 202 D (140-440) Thou/mm3 BMP 01/01/25 12:37 Sodium 139 Potassium 4.2 Chloride 101 Carbon Dioxide 21.7 BUN 8 L Creatinine 1.0 Glucose 102 Calcium 10.0 Cardiac Enzymes 01/01/25 Range/Units 12:37 Troponin I < 0.002 (0.0-0.045) ng/mL Liver Function 01/01/25 Range/Units 12:37 Total Bilirubin 0.7 (0.3-1.2) mg/dL AST 17 (0-34) U/L ALT 16 (10-49) U/L Alkaline Phosphatase 88 (46-116) U/L Albumin 4.6 (3.4-4.8) gm/dL Urine 01/01/25 Range/Units 14:28 Urine Color Yellow (Lt Yel-Yel) Urine Clarity Hazy (Clear/Hazy) Urine pH 6.0 (5.0-7.0) Ur Specific Gordon 1.032 (1.001-1.035) Urine Protein 1+ A (Neg - Trace) Urine Glucose (UA) 4+ A (Negative) Quality Measures Quality Measures none Advance care planning discussed with:: patient Medications Home Medications and Allergies Home Medications ?Medication ?Instructions ?Recorded ?Confirmed ?Type aspirin 81 mg tablet 81 mg PO QDAY 05/07/20 01/01/25 History losartan 50 mg tablet 50 mg PO QDAY 05/07/20 01/01/25 History metformin 1,000 mg tablet 1,000 mg PO BID 05/07/20 01/01/25 History atorvastatin 20 mg tablet 20 mg PO DAILY 12/04/24 01/01/25 History empagliflozin 25 mg tablet 25 mg PO DAILY 12/04/24 01/01/25 History (Jardiance) tirzepatide 5 mg/0.5 mL 5 mg subcut QWEEK 12/04/24 01/01/25 History subcutaneous pen injector (Mounjaro) naltrexone 50 mg tablet 50 mg PO QDAY 01/01/25 01/01/25 History sulfamethoxazole 800 1 tab PO Q12H 01/01/25 01/01/25 History mg-trimethoprim 160 mg tablet (Bactrim DS) sulfamethoxazole 800 1 tab PO Q12H 01/01/25 01/01/25 History mg-trimethoprim 160 mg tablet (Bactrim DS) Allergies Allergy/AdvReac Type Severity Reaction Status Date / Time No Known Allergies Allergy Unknown Verified 01/01/25 11:53 Visit Medications Acetaminophen (Acetaminophen 325 Mg Tablet) 650 mg PO Q6H PRN PRN Reason: Fever >100.4 or pain 1-3 Stop: 01/31/25 18:24 Atorvastatin Calcium (Atorvastatin Calcium 20 Mg Tablet) 20 mg PO HS RANDA Stop: 01/31/25 20:59 Dextrose (Dextrose 50%-Water Inj 50 Ml Syringe) 50 ml IV Q15MIN PRN PRN Reason: BG <50 OR BG <70 & pt unresponsive Stop: 01/31/25 18:29 Dextrose (Dextrose 50%-Water Inj 50 Ml Syringe) 25 ml IV Q15MIN PRN PRN Reason: BG 50-70 responsive npo pt Stop: 01/31/25 18:29 Famotidine (Famotidine 20 Mg Tablet) 20 mg PO BID RANDA Stop: 01/31/25 20:59 Glucagon (Glucagon Inj 1 Mg Vial) 1 mg IM Q15MIN PRN PRN Reason: BG <70, and no IV access Heparin Sodium (Porcine) (Heparin Sod Inj 5000 Unit/Ml Vial) 5,000 unit SC Q12HR RANDA Stop: 01/15/25 20:59 Lactated Ringer's (Lactated Ringers) 1,000 mls @ 999 mls/hr IV .Q1H1M ONE Stop: 01/01/25 18:45 Piperacillin/Tazobactam/Dextrose (Zosyn) 3.375 gm in 50 mls @ 12.5 mls/hr IV Q8HR RANDA; Protocol Stop: 01/08/25 22:59 Piperacillin/Tazobactam/Dextrose (Zosyn) 3.375 gm in 50 mls @ 100 mls/hr IV X1 ONE; Protocol Stop: 01/01/25 19:14 Insulin Human Lispro (Insulin Lispro (Admelog) 1 Unit/0.01 Ml Unit) 0 unit SC ACHS [facility]; Protocol Stop: 01/31/25 20:59 Labetalol HCl (Labetalol Inj 5 Mg/Ml Vial 20 Ml) 10 mg IVP Q6H PRN PRN Reason: hypertension Stop: 01/31/25 18:44 Losartan Potassium (Losartan Potassium 25 Mg Tablet) 50 mg PO QDAY RANDA Stop: 02/01/25 08:59 Non-Formulary Medication (Naltrexone) 50 mg PO QDAY RANDA Stop: 02/01/25 08:59 Ondansetron HCl (Ondansetron Inj 2 Mg/Ml Inj 2 Ml) 4 mg IVP Q6H PRN; Protocol PRN Reason: NAUSEA OR VOMITING Stop: 01/31/25 18:24 Sennosides (Senna Tablet) 1 tab PO BID PRN; Protocol PRN Reason: CONSTIPATION Stop: 01/31/25 18:24 Discontinued Medications Ceftriaxone Sodium/Dextrose (Rocephin/D5w 1gm Iv Premix) 1 gm in 50 mls @ 100 mls/hr IV X1 ONE Stop: 01/01/25 18:14 Ondansetron HCl (Ondansetron Inj 2 Mg/Ml Inj 2 Ml) 4 mg IVP X1 ONE; Protocol Stop: 01/01/25 17:45 Assessment & Plan Plan 64-year-old male patient with significant history of alcohol use disorder, hypertension, diabetes mellitus, past [place], enlarged prostate, was brought in by family for evaluation regarding dysuria. #Pyelonephritis #Perinephric Stranding #Complicated UTI ddx: UTI, STI, cystitis. Jardiance can not be ruled out as a source or enlarged prostate as sources of UTI. Reports penile pain with urination but no hesitancy. Denies recent sexual activity. CTAP shows perinephric fat stranding and enlarged prostate. Failed out patient antibiotics. Previous urine culture resistant of Levofloxacin, Ciprofloxacin, Bactrim, Ampicillin, and Tetracyclines. Plan: -IV abx zosyn 3.375gm 01/01/2025 -Blood Cultures & Urine Cultures pending -STI work up -Bladder scans PRN -Strict Ins out Outs, monitor Urine output -Hold home jardiance #Diabetes Mellitus, non-insulin dependent, type II Patient has a past medical history of diabetes mellitus who's last A1c about 6. 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 Denied any stent placement. Plan: -Continue aspirin 81 mg PO QD -Atorvastatin 20mg PO HS #Alcohol use disorder, currently Abstinent Patient follows [facility] for PCP. [place] has been abstinent for over 1 month, started on Naltrexone. Plan: -Continue naltrexone 50mg PO QD #Hematuria #prostatic enlargement +2 RBC on urinialysis. patient denies blood in urine. Enlarged prostate on CTAP Plan: -FUP outpatient #4mm R lobe liver cyst #3mm pulmonary nodule RUL #3mm pulmonary nodule left lower lobe Incidental findings, please FUP outpatient Health Maintenance: Code status: Full DVT prophylaxis: Heparin subq GI prophylaxis: famotidine Diet: carb consistent Brady: no Lines: PIV Supplemental O2: No Disposition: Med tele Patient seen and reviewed with attending Dr. Miramontes and supervising resident Dr. Smith and Dr. Erazo. Note written by Dusty Bermudez MD PGY-1 Attending Provider Attestation/Addendum I have examined the patient, reviewed labs and imaging findings, discussed the case with the resident(s), and reviewed entered orders. I agree with the plan of care as outlined in this note, with these additional summaries/recommendations: After examination of the patient and review of the clinical data, I feel that this patient needs admission to the hospital for further treatment and evaluation. Patient is a 64-year-old male with a medical history of BPH status post prostate biopsy on 12/2024, primary hypertension, diabetes mellitus type 2, and dyslipidemia presents to [facility] emergency department on 01/01/2025 with chief complaints of abdominal pain and dysuria. Patient seen at bedside. Patient diagnosed with pyelonephritis. CT of abdomen and pelvis showed perinephric fat stranding. Urinalysis indicative of UTI. He endorses a history of BPH and prostate biopsy approximately 1 month ago which was negative for malignancy. Blood and urine cultures taken in the emergency room, follow-up results when available. Start IV antibiotic. Significant leukocytosis present 22,000 and repeat hematology panel in AM. Pulmonary nodules noted on CT and outpatient follow-up for continued surveillance. Continue home antihypertensives. Start insulin sliding scale with Accu-Cheks for diabetes mellitus type 2. Target blood sugar 140-180 while hospitalized. Patient updated on the plan and in agreement. All questions answered to satisfaction. Please see residents note for additional details and management. Dr. Fe MD
[2025-01-01] MEDS: ONDANSETRON INJ 2 MG/ML INJ 2 ML 4 MG IVP (19:30)
[2025-01-01] MEDS: PIPER/TAZO 3.375 GM PREMIX 3.375 GM/50 ML BAG IV ×2 (19:30→23:42)
[2025-01-01] MEDS: RINGERS LACTATED 1000 ML 1,000 ML 999 ML IV (19:33)
[2025-01-01] MEDS: cefTRIAXone/D5w 1gm IV premix 1 GM/50 ML BAG IV (19:58)
[2025-01-01] MEDS: HEPARIN SOD INJ 5000 UNIT/ML VIAL SC (20:09)
[2025-01-01] MEDS: ATORVASTATIN CALCIUM 20 MG TABLET PO (20:09)
[2025-01-01] MEDS: FAMOTIDINE 20 MG TABLET PO (20:09)
[2025-01-01 20:20] VITALS: BP 142/75; PULSE 90; RESP 18; TEMP 36.5; O2SAT 96; BMI 31.0
[2025-01-02] VITALS (10 sets, daily range): BP systolic 99–133; BP diastolic 57–79; PULSE 61–95; RESP 16–18; TEMP 36.2–37.6; O2SAT 93–96
[2025-01-02] MEDS: PIPER/TAZO 3.375 GM PREMIX 3.375 GM/50 ML BAG IV (05:44)
[2025-01-02 05:45] LABS: Basophils # (Auto) 0.1 Thou/mm3 (0.0-0.2); Basophils % (Auto) 0 % (0-2.5); Eosinophils # (Auto) 0.0 Thou/mm3 (0.0-0.5); Eosinophils % (Auto) 0 % (0-10); Hematocrit 39.0 % (41.0-53.0); Hemoglobin 13.0 g/dL (13.5-16.0); Immature Granulocytes Auto 0.11 Thou/mm3 (0.00-0.00); Lymphocytes # (Auto) 1.7 Thou/mm3 (1.0-4.8); Lymphocytes % (Auto) 9 % (10-50); Mean Corpuscular HGB Conc 33.3 g/dl (31.0-37.0); Mean Corpuscular Hemoglobin 31.9 pg (25.0-35.0); Mean Corpuscular Volume 96 fL (80-100); Monocytes # (Auto) 1.5 Thou/mm3 (0.0-0.8); Monocytes % (Auto) 8 % (0-12); Neutrophils # (Auto) 15.2 Thou/mm3 (1.8-7.7); Neutrophils % (Auto) 81 % (37-80); Nucleated Red Blood Cell # 0.00 Thou/mm3 (0.00-0.00); Nucleated Red Blood Cell % 0 /100 WBC (0); Platelet Count 189 Thou/mm3 (140-440); RDW Standard Deviation 42.5 fL (35.1-43.9); Red Blood Count 4.07 Miln/mm3 (4.50-5.90); White Blood Count 18.6 Thou/mm3 (3.8-10.6)
[2025-01-02 06:04] LABS: Glucose Estimated Average 120 mg/dL (80-131); Hemoglobin A1C 5.8 % Hgb (4.8-6.0)
[2025-01-02 06:06] LABS: Alanine Aminotransferase 13 U/L (10-49); Albumin, Serum 3.9 gm/dL (3.4-4.8); Albumin/Globulin Ratio 1.4 (1.2-2.2); Alkaline Phosphatase 79 U/L (46-116); Anion Gap 15 (7-16); Aspartate Amino Transferase 14 U/L (0-34); BUN/Creatinine Ratio 9 Ratio (12-20); Bilirubin,Total 0.6 mg/dL (0.3-1.2); Blood Urea Nitrogen 7 mg/dL (9-23); Calcium 9.1 mg/dL (8.3-10.6); Calcium (Corrected) 9.2 mg/dL (8.5-10.1); Carbon Dioxide 22.2 mMol/L (20.0-31.0); Chloride 103 mMol/L (98-107); Creatinine (Component) 0.8 mg/dL (0.6-1.3); Estimated Creatinine Clearance 81.7 mL/min (>60); Globulin 2.7 gm/dL (2.3-3.5); Glucose 96 mg/dL (74-106); Magnesium 1.8 mg/dL (1.6-2.6); Osmolality,Calculated 277 (275-295); Phosphorous 3.8 mg/dL (2.4-5.1); Potassium 3.7 mMol/L (3.4-5.1); Sodium 140 mMol/L (136-145); Total Protein 6.6 gm/dL (5.7-8.2); eGFR > 60 See Note
[2025-01-02 06:31] LABS: Syphilis Nonreactive (Nonreactive)
[2025-01-02] MEDS: POTASSIUM CHLORIDE 10% 20 MEQ/15 ML UDC 40 MEQ PO (08:17)
[2025-01-02] MEDS: ASPIRIN EC 81 MG TABEC PO (08:17)
[2025-01-02] MEDS: LOSARTAN POTASSIUM 25 MG TABLET 50 MG PO (08:17)
[2025-01-02] MEDS: HEPARIN SOD INJ 5000 UNIT/ML VIAL SC ×2 (08:17→21:42)
[2025-01-02] MEDS: FAMOTIDINE 20 MG TABLET PO ×2 (08:17→21:42)
[2025-01-02] MEDS: Magnesium Sulfate 2 GM Ivpb 2 GM/50 ML BAG IV (08:18)
[2025-01-02] MEDS: FINASTERIDE 5 MG TABLET PO (09:09)
--- NOTE | 2025-01-02 09:13 | PC.SS ---
Follow up note: On IV antibiotic. Waiting for blood and urine cultures.
--- NOTE | 2025-01-02 11:57 | ESPR_ITS ---
Documentation for date of: 01/02/25 -------- No overnight events reported. Patient stated improved dysuria, improved polyuria, improved nausea, and improved generalized weakness. Pending urine cultures, concern for prostatitis given recent prostate biopsy and failed outpatient antibiotics. Pending Chlamydia and Gonorrhea studies Pending. Follow up with Urine culture for sensitivity. Plan to discharge within the next 24 hours. - The patient's plan was discussed with attending Dr. Jean-Pierre Erazo MD PGY2 Internal Medicine Subjective Subjective Interval history: No overnight events. Patient was examined at bedside; he reports feeling much better but still endorses burning and pain with urination that he says comes and goes. Labs today significant for K 3.7 (given PO liquid KCl 40 mg x 1) and magnesium 1.8 (given IV magnesium sulfate 20 mg x 1). Physical exam showed some suprapubic tenderness to palpation but was otherwise unremarkable. Patient had apparently failed to clear his infection in the outpatient setting with Bactrim (previous 12/06/24 UCx grew Bactrim-resistant E.coli). Current plan is to switch patient's IV Zosyn 3.375 gm q6HR to IV ceftriaxone 1 gm qD and continue following up on urine and blood cultures. Exam Vital Signs Temp Pulse Resp BP Pulse Ox O2 Del Method 97.2 F 94 17 133/79 H 96 Room Air 01/02/25 08:00 01/02/25 08:17 01/02/25 08:00 01/02/25 08:17 01/02/25 08:00 01/02/25 08:00 Narrative Exam GENERAL APPEARANCE: AOx3. NAD, well developed/ well nourished, no cyanosis, pallor, or diaphoresis. HEENT: Normocephalic atraumatic, no facial trauma, neck is supple. Lids/conjunctiva normal. Mucous membranes moist, nares normal, lips/teeth normal uvula midline without oral pharyngeal erythema, exudate or swelling TMs normal bilaterally. No lymphangitis/lymphedema. CARDIAC: Regular rate and rhythm, S1+S2 heard. No murmurs, rubs, or gallops noted RESPIRATORY: respiratory effort normal, speaks in full sentences, no tripod position, no accessory muscle use. Lungs clear to auscultation without rhonchi, wheezes, rales ABDOMINAL: Some suprapubic tenderness to palpation. NBS. Soft, ND/NT. No evidence of fluid wave. No pulsatile masses on exam, rebound tenderness, Solano sign or pain over Mcburney's point. Umbilical hernia reducible. Surgical scars along right anterior rib line from past open cholecystectomy MUSCLES/EXTREMITIES: No abnormal range of motion, no swelling. DERM: Warm, pink and dry. No rashes, dermatoses, petechiae or lesions. NEUROLOGICAL: Speech is clear and appropriate. Normal level of consciousness. PSYCH: Normal mood and affect. Judgement/competence is appropriate : Negative for CVA tenderness. Objective Labs 01/02/25 04:43 01/02/25 04:43 Labs: Laboratory Results - last 24 hr 01/01/25 01/01/25 01/02/25 12:37 14:28 04:43 WBC 22.2 H 18.6 H RBC 4.52 4.07 L Hgb 14.6 13.0 L Hct 43.8 39.0 L MCV 97 96 MCH 32.3 31.9 MCHC 33.3 33.3 RDW Std Deviation 43.9 42.5 Plt Count 202 D 189 Neut % (Auto) 86 H 81 H Lymph % (Auto) 7 L 9 L Rogers % (Auto) 6 8 Eos % (Auto) 0 0 Baso % (Auto) 0 0 Neut # (Auto) 19.1 H 15.2 H Lymph # (Auto) 1.6 1.7 Rogers # (Auto) 1.4 H 1.5 H Eos # (Auto) 0.0 0.0 Baso # (Auto) 0.1 0.1 Immature Gran # (Auto) 0.18 H 0.11 H Absolute Nucleated RBC 0.00 0.00 Immature Gran % 1 H 1 H Nucleated RBC % 0 0 Sodium 139 140 Potassium 4.2 3.7 D Chloride 101 103 Carbon Dioxide 21.7 22.2 Anion Gap 16 15 BUN 8 L 7 L Creatinine 1.0 0.8 Estim Creat Clear Calc 65.7 81.7 eGFR > 60 > 60 BUN/Creatinine Ratio 8 L 9 L Glucose [address] Glu mg/dL 120 Hemoglobin A1c 5.8 Calculated Osmolality 275 277 Lactic Acid 1.9 Calcium 10.0 9.1 Corrected Calcium 10.0 9.2 Phosphorus 3.8 Magnesium 1.8 Total Bilirubin 0.7 0.6 AST 17 14 ALT 16 13 Alkaline Phosphatase 88 79 Troponin I < 0.002 Total Protein 7.7 6.6 Albumin 4.6 3.9 D Globulin 3.1 2.7 Albumin/Globulin Ratio 1.5 1.4 Lipase 42 Procalcitonin 0.72 H Ur Collection Type Clean Catch Urine Color Yellow Urine Clarity Hazy Urine pH 6.0 Ur Specific [place] 1.032 Urine Protein 1+ A Urine Glucose (UA) 4+ A Urine Ketones 4+ A Urine Blood 2+ A Urine Nitrite Positive Urine Bilirubin Negative Urine Urobilinogen (Auto) Negative Ur Leukocyte Esterase Positive Urine RBC 72 H Urine WBC 347 H Ur Squamous Epith Cells < 1 Urine Bacteria 1+ A Hyaline Casts < 1 Syphilis Serology Nonreactive Quality Measures Quality Measures none Advance care planning discussed with:: patient Assessment & Plan Assessment Current Active Medications: Generic Name Dose Route Start Last Admin Trade Name Freq PRN Reason Stop Dose Admin Acetaminophen 650 mg 01/01/25 18:25 Acetaminophen 325 Mg Tablet PO 01/31/25 18:24 Q6H PRN Fever >100.4 or pain 1-3 Aspirin 81 mg 01/02/25 09:00 01/02/25 08:17 Aspirin Ec 81 Mg Tabec PO 02/01/25 08:59 81 mg QDAY RANDA Administration Atorvastatin Calcium 20 mg 01/01/25 21:00 01/01/25 20:09 Atorvastatin Calcium 20 Mg Tablet PO 01/31/25 20:59 20 mg HS RANDA Administration Naltrexone Hcl 50mg 0 ea 01/03/25 10:15 Tablet PO 02/02/25 10:14 QDAY RANDA Dextrose 50 ml 01/01/25 18:30 Dextrose 50%-Water Inj 50 Ml Syringe IV 01/31/25 18:29 Q15MIN PRN BG <50 OR BG <70 & pt unresponsive Dextrose 25 ml 01/01/25 18:30 Dextrose 50%-Water Inj 50 Ml Syringe IV 01/31/25 18:29 Q15MIN PRN BG 50-70 responsive npo pt Famotidine 20 mg 01/01/25 21:00 01/02/25 08:17 Famotidine 20 Mg Tablet PO 01/31/25 20:59 20 mg BID RANDA Administration Finasteride 5 mg 01/02/25 09:00 01/02/25 09:09 Finasteride 5 Mg Tablet PO 02/01/25 08:59 5 mg QDAY RANDA Administration Glucagon 1 mg 10/02/25 18:30 Glucagon Inj 1 Mg Vial IM Q15MIN PRN BG <70, and no IV access Heparin Sodium (Porcine) 5,000 unit 01/01/25 21:00 01/02/25 08:17 Heparin Sod Inj 5000 Unit/Ml Vial SC 01/15/25 20:59 5,000 unit Q12HR RANDA Administration Piperacillin/Tazobactam/Dextrose 3.375 gm in 50 mls @ 12.5 mls/hr 01/01/25 23:00 01/02/25 05:44 Zosyn IV 01/08/25 22:59 12.5 mls/hr Q8HR RANDA Administration Protocol Insulin Human Lispro 0 unit 01/01/25 21:00 01/02/25 11:39 Insulin Lispro (Admelog) 1 Unit/0.01 Ml Unit SC 01/31/25 20:59 Not Given ACHS RANDA Protocol Labetalol HCl 10 mg 01/01/25 18:32 Labetalol Inj 5 Mg/Ml Vial 20 Ml IVP 01/31/25 18:44 Q6H PRN hypertension Losartan Potassium 50 mg 01/02/25 09:00 01/02/25 08:17 Losartan Potassium 25 Mg Tablet PO 02/01/25 08:59 50 mg QDAY RANDA Administration Ondansetron HCl 4 mg 01/01/25 18:25 Ondansetron Inj 2 Mg/Ml Inj 2 Ml IVP 01/31/25 18:24 Q6H PRN NAUSEA OR VOMITING Protocol Sennosides 1 tab 01/01/25 18:25 Senna Tablet PO 01/31/25 18:24 BID PRN CONSTIPATION Protocol Plan 64-year-old male patient with significant history of alcohol use disorder, hypertension, diabetes mellitus, past UT, enlarged prostate, was brought in by family for evaluation regarding dysuria. #Pyelonephritis #Complicated UTI ddx: UTI, STI, cystitis vs prostatitis. Jardiance can not be ruled out as a source or enlarged prostate as sources of UTI. Reports penile pain with urination but no hesitancy. Denies recent sexual activity. CTAP shows perinephric fat stranding and enlarged prostate. Failed outpatient antibiotic (Bactrim). Previous urine culture resistant of Levofloxacin, Ciprofloxacin, Bactrim, Ampicillin, and Tetracyclines. Plan: -Discontinued IV abx zosyn 3.375gm q6HR [01/01-01/02] -Started IV ceftriaxone 1 gm qD [01/02--] -Blood Cultures ([id number] x 2) & Urine Culture pending -STI work up (syphilis negative); pending Chlamydia and Gonorrhea -Bladder scans PRN -Strict Ins out Outs, monitor Urine output -Holding home Jardiance #Diabetes Mellitus, non-insulin dependent, type II 01/02/25 HgbA1c = 5.8. Home medication includes: Mounjaro, Metformin 1000 mg BID, and Jardiance Plan -Sliding Scale -Carb Consistent diet -continue to monitor fasting glucose #HTN Plan: -Continue home losartan 50mg PO QD -Labetalol 10mg IV Q6H PRN #Hx of ACS #Hyperlipidemia Patient did not follow up with visual design lead due to COVID occurring in 2019. Denied any stent placement. Plan: -Continue aspirin 81 mg PO QD -Atorvastatin 20mg PO HS #Alcohol use disorder, currently Abstinent [facility]. Paitnet has been abstinent for over 1 month, started on Naltrexone. Plan: -Continue naltrexone 50mg PO QD #Hematuria #prostatic enlargement +2 RBC on urinialysis. patient denies blood in urine. Enlarged prostate on CTAP Plan: -FUP outpatient #4mm R lobe liver cyst #3mm pulmonary nodule RUL #3mm pulmonary nodule left lower lobe Incidental findings, follow-up outpatient Health Maintenance: Code status: Full DVT prophylaxis: Heparin subq GI prophylaxis: famotidine Diet: carb consistent Brady: no Lines: PIV Supplemental O2: No Disposition: Med tele Patient seen and reviewed with attending Dr. Morejon and supervising resident Dr. Erazo. Herve oCok DO Internal Medicine, PGY-1 Attending Provider Attestation/Addendum I have discussed and was present for the essential components of the history, physical examination, diagnosis, and treatment plan with the resident. I agree with the patient's care as documented by the resident and amended herein by me. Chidi Morejon DO. Although this document has been carefully reviewed, there may still be some phonetic and other typographical errors. These errors are purely grammatical due to imperfections in the software program and should not be construed in any way to compromise the substance of the patient's medical care during this visit. Patient seen and evaluated this AM. In Short, patient is a 64-year-old male patient with significant history of alcohol use disorder (now on naltrexone), hypertension, diabetes mellitus, past UT, enlarged prostate, was brought in by family for evaluation regarding dysuria, lethargy, and groin pain. Patient currently being treated for possible pyelonephritis and complicated UTI however I also suspect prostatitis may be a possible differential. Patient did have a prostate biopsy on 12/05 (which is neg for malignancy), he follows with Dr. Tapia, he was admitted back on 12/06 for what seemed to be alcohol withdrawal at that time, he endorsed drinking a copious amount of alcohol, namely a 12 pack of beer daily and multiple shots of vodka daily for approximately 7 years, he was abstinent from alcohol a couple of days prior to his procedure and hence was in withdrawal at that time. It was also determined at that time that he may have acute prostatitis due to urinary symptoms at that time, he was started on Zosyn initially however that was switched to ceftriaxone relatively quickly and was discontinued at discharge on 12/09 considering his symptoms were mild, he was not discharged with any p.o. antibiotics at that time. Urine culture at that time was drawn on 12/06 and resulted on 12/09 demonstrating 10-20,000 CFU's of E. coli resistant to fluoroquinolones and Bactrim. Several days prior to this admission the patient was also having complaints of dysuria, lethargy, subjective fever and chills as well as groin pain and was prescribed Bactrim from Dr. Tapia a few days prior to admission. The patient has been on ceftriaxone this admission and his symptoms have much been improved. Patient presently being treated for complicated UTI/pyelonephritis but he may in fact also have prostatitis which complicates treatment. Urine cultures are still pending however if this is the same organism, namely MDRO E. coli as it was on 12/06 this complicates treatment as we cannot use fluoroquinolones or Bactrim. If that is the case, we should get sensitivities for fosfomycin and reserve p.o. cephalosporins as a last resort to ensure resolution, he will need at least 2 weeks of antibiotics in the case of prostatitis which I cannot rule out at this time considering the nature of his pain that he was having. For now we will wait for culture and sensitivities to result, continue ceftriaxone and formulate a plan tomorrow. I did explain all this to the patient and he understood.
[2025-01-02] MEDS: cefTRIAXone/D5w 1gm IV premix 1 GM/50 ML BAG IV (12:24)
[2025-01-02] MEDS: NALTREXONE HCL 50MG TABLET PO (12:26)
--- NOTE | 2025-01-02 15:24 | PC.SS ---
SS met with patient his regarding d/c plan. Pt is alert/oriented. Pt was admitted for UTI/Pyelonephritis. Pt confirmed demographic and contact information is correct on facesheet. Pt resides with . Pt ambulates independently without assistance or DME. Pt is ok with all ADLs. Patient?s pharmacy of choice is [facility] on [address]. Pt named his , Idania Tejada medical decision maker if he is unable. Patient?s choice is to return home upon d/c. Pt states he is diabetic, has a glucometer, and test strips. Pt states he utilizes insulin injections for his diabetes. will provide transportation home. Pt followed up with PCP on Sunday. D/C plan: Return home Next of Kin: Idania Tejada, , phone# [phone] PCP: [facility] on [facility] Address: Correct on facesheet
--- NOTE | 2025-01-02 17:43 | EKG_ITS ---
[facility] Test Date: 2025-01-02 Pat Name: MOISES FAIRBANKS [facility] Gender[facility] Male Reel Slitter: MARCI : 1960 Requested By: Cuca Erazo Order Number: [id number] Reading MD: Cuca Erazo Measurements Intervals [place] Rate: 78 P: 24 AR: 182 QRS: -29 QRSD: 89 T: 18 QT: 353 QTc: 404 Interpretive Statements SINUS RHYTHM BORDERLINE LEFT AXIS DEVIATION Compared to ECG 01/01/2025 12:21:49 Myocardial infarct finding no longer present /store/S0/[id number]/[id number].pdf
[2025-01-02] MEDS: ATORVASTATIN CALCIUM 20 MG TABLET PO (21:42)
[2025-01-03] VITALS (11 sets, daily range): BP systolic 115–142; BP diastolic 73–93; PULSE 76–98; RESP 17–20; TEMP 36.4; O2SAT 95–97
[2025-01-03 05:49] LABS: Basophils # (Auto) 0.1 Thou/mm3 (0.0-0.2); Basophils % (Auto) 1 % (0-2.5); Eosinophils # (Auto) 0.2 Thou/mm3 (0.0-0.5); Eosinophils % (Auto) 1 % (0-10); Hematocrit 43.0 % (41.0-53.0); Hemoglobin 14.3 g/dL (13.5-16.0); Immature Granulocytes Auto 0.15 Thou/mm3 (0.00-0.00); Lymphocytes # (Auto) 1.8 Thou/mm3 (1.0-4.8); Lymphocytes % (Auto) 12 % (10-50); Mean Corpuscular HGB Conc 33.3 g/dl (31.0-37.0); Mean Corpuscular Hemoglobin 32.1 pg (25.0-35.0); Mean Corpuscular Volume 97 fL (80-100); Monocytes # (Auto) 1.2 Thou/mm3 (0.0-0.8); Monocytes % (Auto) 8 % (0-12); Neutrophils # (Auto) 11.9 Thou/mm3 (1.8-7.7); Neutrophils % (Auto) 78 % (37-80); Nucleated Red Blood Cell # 0.00 Thou/mm3 (0.00-0.00); Nucleated Red Blood Cell % 0 /100 WBC (0); Platelet Count 209 Thou/mm3 (140-440); RDW Standard Deviation 43.0 fL (35.1-43.9); Red Blood Count 4.45 Miln/mm3 (4.50-5.90); White Blood Count 15.3 Thou/mm3 (3.8-10.6)
[2025-01-03 06:03] LABS: Alanine Aminotransferase 18 U/L (10-49); Albumin, Serum 4.2 gm/dL (3.4-4.8); Albumin/Globulin Ratio 1.4 (1.2-2.2); Alkaline Phosphatase 86 U/L (46-116); Anion Gap 12 (7-16); Aspartate Amino Transferase 18 U/L (0-34); BUN/Creatinine Ratio 8 Ratio (12-20); Bilirubin,Total 0.4 mg/dL (0.3-1.2); Blood Urea Nitrogen 6 mg/dL (9-23); Calcium 9.7 mg/dL (8.3-10.6); Calcium (Corrected) 9.7 mg/dL (8.5-10.1); Carbon Dioxide 25.6 mMol/L (20.0-31.0); Chloride 104 mMol/L (98-107); Creatinine (Component) 0.8 mg/dL (0.6-1.3); Estimated Creatinine Clearance 81.7 mL/min (>60); Globulin 3.1 gm/dL (2.3-3.5); Glucose 101 mg/dL (74-106); Magnesium 2.1 mg/dL (1.6-2.6); Osmolality,Calculated 280 (275-295); Phosphorous 3.7 mg/dL (2.4-5.1); Potassium 5.0 mMol/L (3.4-5.1); Sodium 142 mMol/L (136-145); Total Protein 7.3 gm/dL (5.7-8.2); eGFR > 60 See Note
--- NOTE | 2025-01-03 06:31 | PC.NURSE ---
Final result of urine culture: E. coli. Dr. Astudillo was made aware, no new orders obtained at this time. to let the day team know.
[2025-01-03] MEDS: FAMOTIDINE 20 MG TABLET PO ×2 (08:52→20:31)
[2025-01-03] MEDS: LOSARTAN POTASSIUM 25 MG TABLET 50 MG PO (08:52)
[2025-01-03] MEDS: ASPIRIN EC 81 MG TABEC PO (08:52)
[2025-01-03] MEDS: FINASTERIDE 5 MG TABLET PO (08:52)
[2025-01-03] MEDS: HEPARIN SOD INJ 5000 UNIT/ML VIAL SC ×2 (08:52→20:31)
[2025-01-03] MEDS: NALTREXONE HCL 50MG TABLET PO (08:53)
[2025-01-03] MEDS: cefTRIAXone/D5w 1gm IV premix 1 GM/50 ML BAG IV (08:53)
[2025-01-03 09:01] LABS: Chlamydia trachomatis PCR Negative (Not Detect); Neisseria Gonorrhoeae DNA PCR Negative (Not Detect); Trichomonas Negative (Negative)
--- NOTE | 2025-01-03 12:01 | XR_ITS ---
Examination: Testicular sonography complete Technique: Grayscale sonographic images testes, assessment arterial inflow venous outflow Doppler spectral analysis carful analysis Date and time: January 03, 2025, 1319 hrs. Indications: Testicular swelling and pain beginning several days ago Findings: Right testis 4.5 cm epididymis 16mm Tiny epididymal cysts, the largest 3 mm Arterial flow testicle. No testicular mass Prominent varicocele Moderate hydrocele Left testis 4.8 cm epididymis 1.4 cm Arterial flow testicle. No testicular mass Prominent varicocele Mild hydrocele Impression: No testicular torsion or testicular mass Bilateral prominent varicoceles
--- NOTE | 2025-01-03 13:44 | PD.RESPRO ---
Documentation for date of: 01/03/25 No overnight events. Patient examined at bedside. Patient complaining of scrotal pain. Patinet examed at bedside, noted to have enlarge right scrotal sac tender to palpation. NO tenderness to elevation. Holding off discharge, follow up with testicular ultrasound and possible urology consult. - The patient's plan was discussed with attending Dr. Carmen Erazo MD PGY2 Internal Medicine Subjective Subjective Interval history: No overnight events. Patient was examined at bedside; he reports feeling well but still endorses some pain with urination as well as right-sided testicular pain and swelling that have become more noticeable today. He also reports urinating out some orange dirt-like sediment which was present in the male urinal container. Labs today significant for WBC 18.6 -> 15.3 and potassium 3.7 -> 5.0. On physical exam, patient's right testicle does seem more swollen than on the left and is tender to palpation. Updates to Plan: -Ordered scrotal ultrasound -Plan to discharge w/ PO cefuroxime BID for 12 days (26-wtf-gmxbzs of antibiotics) -Hold Jardiance Exam Vital Signs Temp Pulse Resp BP Pulse Ox O2 Del Method 97.5 F 98 17 115/73 97 Room Air 01/03/25 12:00 01/03/25 12:00 01/03/25 12:00 01/03/25 12:00 01/03/25 12:00 01/03/25 12:00 Narrative Exam GENERAL APPEARANCE: AOx3. NAD, well developed/ well nourished, no cyanosis, pallor, or diaphoresis. HEENT: Normocephalic atraumatic, no facial trauma, neck is supple. Lids/conjunctiva normal. Mucous membranes moist, nares normal, lips/teeth normal uvula midline without oral pharyngeal erythema, exudate or swelling TMs normal bilaterally. No lymphangitis/lymphedema. CARDIAC: Regular rate and rhythm, S1+S2 heard. No murmurs, rubs, or gallops noted RESPIRATORY: respiratory effort normal, speaks in full sentences, no tripod position, no accessory muscle use. Lungs clear to auscultation without rhonchi, wheezes, rales ABDOMINAL: Negative for CVA tenderness. Some suprapubic tenderness to palpation. NBS. Soft, ND/NT. No evidence of fluid wave. No pulsatile masses on exam, rebound tenderness, Solano sign or pain over Mcburney's point. Umbilical hernia reducible. Surgical scars along right anterior rib line from past open cholecystectomy MUSCLES/EXTREMITIES: No abnormal range of motion, no swelling. DERM: Warm, pink and dry. No rashes, dermatoses, petechiae or lesions. NEUROLOGICAL: Speech is clear and appropriate. Normal level of consciousness. PSYCH: Normal mood and affect. Judgment/competence is appropriate : Right testicle appears more swollen and tender than left testicle on scrotal exam. Objective Labs 01/04/25 05:28 01/04/25 05:28 Labs: Laboratory Results - last 24 hr 01/02/25 01/03/25 15:34 05:20 WBC 15.3 H RBC 4.45 L Hgb 14.3 Hct 43.0 MCV 97 MCH 32.1 MCHC 33.3 RDW Std Deviation 43.0 Plt Count 209 Neut % (Auto) 78 Lymph % (Auto) 12 [place] % (Auto) 8 Eos % (Auto) 1 Baso % (Auto) 1 Neut # (Auto) 11.9 H Lymph # (Auto) 1.8 [place] # (Auto) 1.2 H Eos # (Auto) 0.2 Baso # (Auto) 0.1 Immature Gran # (Auto) 0.15 H Absolute Nucleated RBC 0.00 Immature Gran % 1 H Nucleated RBC % 0 Sodium 142 Potassium 5.0 D Chloride 104 Carbon Dioxide 25.6 Anion Gap 12 BUN 6 L Creatinine 0.8 Estim Creat Clear Calc 81.7 eGFR > 60 BUN/Creatinine Ratio 8 L Glucose 101 Calculated Osmolality 280 Calcium 9.7 Corrected Calcium 9.7 Phosphorus 3.7 Magnesium 2.1 Total Bilirubin 0.4 AST 18 ALT 18 Alkaline Phosphatase 86 Total Protein 7.3 Albumin 4.2 Globulin 3.1 Albumin/Globulin Ratio 1.4 Chlam trachomat DNA PCR Negative N.gonorrhoeae DNA (PCR) Negative Trichomonas DNA Probe Negative Quality Measures Quality Measures none Advance care planning discussed with:: patient Assessment & Plan Assessment Current Active Medications: Generic Name Dose Route Start Last Admin Trade Name Freq PRN Reason Stop Dose Admin Acetaminophen 650 mg 01/01/25 18:25 Acetaminophen 325 Mg Tablet PO 01/31/25 18:24 Q6H PRN Fever >100.4 or pain 1-3 Aspirin 81 mg 01/02/25 09:00 01/03/25 08:52 Aspirin Ec 81 Mg Tabec PO 02/01/25 08:59 81 mg QDAY RANDA Administration Atorvastatin Calcium 20 mg 01/01/25 21:00 01/02/25 21:42 Atorvastatin Calcium 20 Mg Tablet PO 01/31/25 20:59 20 mg HS RANDA Administration Naltrexone Hcl 50mg 0 ea 01/02/25 12:15 01/03/25 08:53 Tablet PO 02/01/25 12:14 1 tablet QDAY RANDA Administration Dextrose 50 ml 01/01/25 18:30 Dextrose 50%-Water Inj 50 Ml Syringe IV 01/31/25 18:29 Q15MIN PRN BG <50 OR BG <70 & pt unresponsive Dextrose 25 ml 01/01/25 18:30 Dextrose 50%-Water Inj 50 Ml Syringe IV 01/31/25 18:29 Q15MIN PRN BG 50-70 responsive npo pt Famotidine 20 mg 01/01/25 21:00 01/03/25 08:52 Famotidine 20 Mg Tablet PO 01/31/25 20:59 20 mg BID RANDA Administration Finasteride 5 mg 01/02/25 09:00 01/03/25 08:52 Finasteride 5 Mg Tablet PO 02/01/25 08:59 5 mg QDAY RANDA Administration Glucagon 1 mg 01/01/25 18:30 Glucagon Inj 1 Mg Vial IM Q15MIN PRN BG <70, and no IV access Heparin Sodium (Porcine) 5,000 unit 01/01/25 21:00 01/03/25 08:52 Heparin Sod Inj 5000 Unit/Ml Vial SC 01/15/25 20:59 5,000 unit Q12HR RANDA Administration Ceftriaxone Sodium/Dextrose 1 gm in 50 mls @ 100 mls/hr 01/02/25 11:57 01/03/25 08:53 Rocephin/D5w 1gm Iv Premix IV 01/09/25 11:56 100 mls/hr QDAY RANDA Administration Insulin Human Lispro 0 unit 01/01/25 21:00 01/03/25 12:14 Insulin Lispro (Admelog) 1 Unit/0.01 Ml Unit SC 01/31/25 20:59 Not Given ACHS RANDA Protocol Labetalol HCl 10 mg 01/01/25 18:32 Labetalol Inj 5 Mg/Ml Vial 20 Ml IVP 01/31/25 18:44 Q6H PRN hypertension Losartan Potassium 50 mg 01/02/25 09:00 01/03/25 08:52 Losartan Potassium 25 Mg Tablet PO 02/01/25 08:59 50 mg QDAY RANDA Administration Ondansetron HCl 4 mg 01/01/25 18:25 Ondansetron Inj 2 Mg/Ml Inj 2 Ml IVP 01/31/25 18:24 Q6H PRN NAUSEA OR VOMITING Protocol Sennosides 1 tab 01/01/25 18:25 Senna Tablet PO 01/31/25 18:24 BID PRN CONSTIPATION Protocol Plan 64-year-old male patient with significant history of alcohol use disorder, hypertension, diabetes mellitus, past NV, enlarged prostate, was brought in by family for evaluation regarding dysuria. #Pyelonephritis #Complicated UTI ddx: UTI, STI, cystitis vs prostatitis. Jardiance can not be ruled out as a source or enlarged prostate as sources of UTI. Reports penile pain with urination but no hesitancy. Denies recent sexual activity. CTAP shows perinephric fat stranding and enlarged prostate. Failed outpatient antibiotic (Bactrim). Previous urine culture resistant of Levofloxacin, Ciprofloxacin, Bactrim, Ampicillin, and Tetracyclines. Plan: -Discontinued IV abx zosyn 3.375gm q6HR [01/01-01/02] -Continue IV ceftriaxone 1 gm qD [01/02--] -Will plan on discharging with PO cefuroxime BID for 12 days -Blood Cultures ([id number] x 2) & Urine Culture (grew E.coli sensitive to ceftriaxone) -STI work up (syphilis negative); Chlamydia, Gonorrhea, Trichomonas (negative) -Bladder scans PRN -Strict Ins out Outs, monitor Urine output -Holding home Jardiance #Varicocele Patient is complaining of right-sided testicular swelling and tenderness Seen on 01/03 testicular ultrasound Possibly 05/04 prostate biopsy procedure Plan: -Outpatient follow-up with urology #Diabetes Mellitus, non-insulin dependent, type II 01/02/25 HgbA1c = 5.8. Home medication includes: Mounjaro, Metformin 1000 mg BID, and Jardiance Plan -Sliding Scale -Carb Consistent diet -Continue holding Jardiance -Continue to monitor fasting glucose #HTN Plan: -Continue home losartan 50mg PO QD -Labetalol 10mg IV Q6H PRN #Hx of ACS #Hyperlipidemia Patient did not follow up with career placement specialist due to COVID occurring in 2019. Denied any stent placement. Plan: -Continue aspirin 81 mg PO QD -Atorvastatin 20mg PO HS #Alcohol use disorder, currently Abstinent Patient follows [facility] for PCP. Paitnet has been abstinent for over 1 month, started on Naltrexone. Plan: -Continue naltrexone 50mg PO QD #Hematuria #prostatic enlargement +2 RBC on urinalysis. patient denies blood in urine. Enlarged prostate on CTAP Plan: -FUP outpatient #4mm R lobe liver cyst #3mm pulmonary nodule RUL #3mm pulmonary nodule left lower lobe Incidental findings, follow-up outpatient Health Maintenance: Code status: Full DVT prophylaxis: Heparin subq GI prophylaxis: famotidine Diet: carb consistent Brady: no Lines: PIV Supplemental O2: No Disposition: Med tele Patient seen and reviewed with attending Dr. Morales and supervising resident Dr. Erazo. Herve Cook, DO Internal Medicine, PGY-1 Attending Provider Attestation/Addendum Patient seen and examined with resident physician Dr. Cook/ Dr. erazo. Note reviewed, agree with findings and recommendations.
--- NOTE | 2025-01-03 15:37 | PC.SS ---
SW follow-up note: Pending urology consult.
[2025-01-03] MEDS: ATORVASTATIN CALCIUM 20 MG TABLET PO (20:31)
[2025-01-04] VITALS (7 sets, daily range): BP systolic 112–139; BP diastolic 68–79; PULSE 74–99; RESP 16–18; TEMP 36.3–36.9; O2SAT 97–98
[2025-01-04 05:49] LABS: Basophils # (Auto) 0.1 Thou/mm3 (0.0-0.2); Basophils % (Auto) 1 % (0-2.5); Eosinophils # (Auto) 0.2 Thou/mm3 (0.0-0.5); Eosinophils % (Auto) 2 % (0-10); Hematocrit 42.4 % (41.0-53.0); Hemoglobin 14.3 g/dL (13.5-16.0); Immature Granulocytes Auto 0.15 Thou/mm3 (0.00-0.00); Lymphocytes # (Auto) 1.9 Thou/mm3 (1.0-4.8); Lymphocytes % (Auto) 18 % (10-50); Mean Corpuscular HGB Conc 33.7 g/dl (31.0-37.0); Mean Corpuscular Hemoglobin 32.4 pg (25.0-35.0); Mean Corpuscular Volume 96 fL (80-100); Monocytes # (Auto) 1.1 Thou/mm3 (0.0-0.8); Monocytes % (Auto) 10 % (0-12); Neutrophils # (Auto) 7.6 Thou/mm3 (1.8-7.7); Neutrophils % (Auto) 69 % (37-80); Nucleated Red Blood Cell # 0.00 Thou/mm3 (0.00-0.00); Nucleated Red Blood Cell % 0 /100 WBC (0); Platelet Count 165 Thou/mm3 (140-440); RDW Standard Deviation 42.5 fL (35.1-43.9); Red Blood Count 4.41 Miln/mm3 (4.50-5.90); White Blood Count 11.0 Thou/mm3 (3.8-10.6)
[2025-01-04 06:28] LABS: Alanine Aminotransferase 25 U/L (10-49); Albumin, Serum 4.2 gm/dL (3.4-4.8); Albumin/Globulin Ratio 1.4 (1.2-2.2); Alkaline Phosphatase 85 U/L (46-116); Anion Gap 10 (7-16); Aspartate Amino Transferase 24 U/L (0-34); BUN/Creatinine Ratio 9 Ratio (12-20); Bilirubin,Total 0.3 mg/dL (0.3-1.2); Blood Urea Nitrogen 7 mg/dL (9-23); Calcium 9.4 mg/dL (8.3-10.6); Calcium (Corrected) 9.4 mg/dL (8.5-10.1); Carbon Dioxide 26.3 mMol/L (20.0-31.0); Chloride 105 mMol/L (98-107); Creatinine (Component) 0.8 mg/dL (0.6-1.3); Estimated Creatinine Clearance 81.7 mL/min (>60); Globulin 3.0 gm/dL (2.3-3.5); Glucose 109 mg/dL (74-106); Magnesium 2.0 mg/dL (1.6-2.6); Osmolality,Calculated 280 (275-295); Phosphorous 4.1 mg/dL (2.4-5.1); Potassium 4.6 mMol/L (3.4-5.1); Sodium 141 mMol/L (136-145); Total Protein 7.2 gm/dL (5.7-8.2); eGFR > 60 See Note
[2025-01-04] MEDS: FINASTERIDE 5 MG TABLET PO (08:56)
[2025-01-04] MEDS: ASPIRIN EC 81 MG TABEC PO (08:56)
[2025-01-04] MEDS: HEPARIN SOD INJ 5000 UNIT/ML VIAL SC (08:57)
[2025-01-04] MEDS: FAMOTIDINE 20 MG TABLET PO (08:57)
[2025-01-04] MEDS: LOSARTAN POTASSIUM 25 MG TABLET 50 MG PO (08:57)
[2025-01-04] MEDS: cefTRIAXone/D5w 1gm IV premix 1 GM/50 ML BAG IV (08:58)
[2025-01-04] MEDS: NALTREXONE HCL 50MG TABLET PO (08:58)
--- NOTE | 2025-01-04 09:56 | ESDS_ITS ---
<Statement entered by Codi Abdullahi MD - 01/11/25 12:10> I reviewed above note and agree with findings and plans. I have also personally examined the patient with medicine team and went over assessment and plan with medical team including director internal audit and resident physician. <Statement entered by Chau Smith MD - 01/04/25 15:38> I saw and examined patient personally and supervised PGY 1 resident, Dr. Cook with formulating a management plan. I agree with the documentation with the exceptions as listed below. Patient was initially treated for pyelonephritis with Zosyn for 1 day after which he was switched to ceftriaxone. Upon discharge working diagnosis was bacterial prostatitis secondary to ultrasound-guided prostate biopsy on 12/06/2024. Patient was also noted to have testicular swelling during hospitalization and testicular ultrasound was obtained which revealed varicocele. Recommend urology consultation as outpatient. Patient was discharged with cefuroxime 500 mg p.o. twice daily for 12 days to complete a total of 2 weeks of treatment for bacterial prostatitis. Patient was counseled to consult his PCP if his symptoms still persist at the end of the course. Also permanently discontinued his Jardiance due to high risk of recurrent UTIs. Plan of care discussed with Attending Dr. Kaylen Smith MD PGY 2 Disclaimer: This note was dictated by speech recognition. Minor errors in billing auditor may be present due to voice recognition software. Planned Discharge Date 01/04/25 DS: Providers Provider Date of admission: 01/01/25 18:14 Primary care physician: Gaston Escobedo MD Admitting Provider: Chung Miramontes MD Attending Provider on Admission: Christina Morales MD Attending Provider on DC: Herve Cook MD Discharging Provider: Herve Cook MD DS: Diagnosis Problem List Completed Was Problem List Reviewed/Reconciled?: Yes Hospital Course Hospital Course Hospital course: Summary: Patient is a 64-year-old male with a past medical history of hypertension, diabetes mellitus type 2 [id number] on Mounjaro, hyperlipidemia, history of acute coronary syndrome (denied history of stents), and history of alcohol use disorder (now abstinent for over 1 month on Naltrexone) who presented with a chief complaint of dysuria and was admitted for UTI/pyelonephritis . ER: In the ED, his vitals were stable, rectal exam negative for occult blood. Labs were significant for leukocytosis of 22,000 neutrophil 86% urinalysis, positive nitrite, positive leukocyte esterase WBC count of 347. CT scan of the abdomen pelvis showed small pulmonary nodules, perinephric stranding, abnormally enlarged prostate, thickened urinary bladder wall up to 9mm. EKG and chest xray were noncontributory. Patient received IV fluids, IV ceftriaxone, and Zofran. Patient admitted for IV abx treatment of pyelonephritis/UTI. Hospital: During course of hospitalization, patient received IV Zosyn [01/01-01/02] then IV ceftriaxone [01/02-01/04] for treatment of his UTI/pyelonephritis while his home Jardiance was held. Patient's urinary symptoms began improving but on 01/03 he complained about right-sided swelling of the scrotum which was later revealed to be a varicocele on imaging. Patient was deemed clinically stable and discharged on 01/04/25 with directions to continue taking PO cefuroxime for his infection, stop his home Jardiance for good, and to follow-up on the varicocele with outpatient Urology. Patient is safe to discharge to home. Further discharge instructions below. Instructions: -New antibiotic, Cefuroxime 500 mg orally twice daily for the next two weeks. - If your symptoms do not improve in 2 weeks, visit your PCP. - We have stopped your Jardiance. DO not take anymore - continue all other medications as prescribed. - Follow up with your Urologist for your varicocele[swelling of testicle] -Please follow up with your primary care provider within one week of discharge -If your symptoms worsen,please seek immediate medical attention and return to your nearest emergency room -If you do not have a primary care provider, you may follow up at the [facility] at [address] [place] [address] [address], [place] [address], #Pyelonephritis #Complicated UTI #Varicocele #Prostatic enlargement #Hematuria #NIDDM #HTN #Hx of ACS #Hyperlipidemia #Alcohol use disorder, currently abstinent #4 mm R lobe liver cyst #3 mm pulmonary nodule RUL #3 mm pulmonary nodule left lower lobe Status at Discharge Cognitive/Behavioral Status at Discharge: stable Functional Status at Discharge: independent ambulation Overall Status at Discharge: patient is back to baseline Patient's care plan was discussed with my attending, Dr. Abdullahi, and senior resident, Dr. Smith. Herve Cook, DO Internal Medicine, PGY-1 Time Spent with Patient Time attestation: Total time spent providing and/or coordinating discharge services: Time spent: Greater than 30 minutes Exam Vital Signs Temp Pulse Resp BP Pulse Ox O2 Del Method 97.3 F 84 16 139/79 H 98 Room Air 01/04/25 07:45 01/04/25 08:57 01/04/25 07:45 01/04/25 08:57 01/04/25 07:45 01/04/25 07:45 Discharge Plan Plan Patient Disposition: HOME (Self Care) Patient condition on transfer: Stable Care Plan Goals: Instructions: -New antibiotic, Cefuroxime 500 mg orally twice daily for the next two weeks. - If your symptoms do not improve in 2 weeks, visit your PCP. - We have stopped your Jardiance. DO not take anymore - continue all other medications as prescribed. - Follow up with your Urologist for your varicocele[swelling of testicle] -Please follow up with your primary care provider within one week of discharge -If your symptoms worsen,please seek immediate medical attention and return to your nearest emergency room -If you do not have a primary care provider, you may follow up at the [facility] at [address], [place] [address], Prescriptions/Referrals Prescriptions/Med Rec: New cefuroxime axetil 500 mg tablet 500 mg PO BID 14 Days Qty: 28 0RF Continued losartan 50 mg Tablet 50 mg PO QDAY metformin 1,000 mg Tablet 1,000 mg PO BID aspirin 81 mg Tablet 81 mg PO QDAY atorvastatin 20 mg tablet 20 mg PO DAILY Mounjaro 5 mg/0.5 mL pen injector 5 mg subcut QWEEK Complete MV Adult 50 Plus 0.4 mg-300 mcg- 250 mcg tablet 1 tab PO QDAY 30 Days Qty: 30 0RF naltrexone 50 mg tablet 50 mg PO QDAY Discontinued Jardiance 25 mg tablet 25 mg PO DAILY sulfamethoxazole-trimethoprim [Bactrim DS] 800-160 mg tablet 1 tab PO Q12H sulfamethoxazole-trimethoprim [Bactrim DS] 800-160 mg tablet 1 tab PO Q12H Referrals: Gaston Escobedo MD [Primary Care Provider, Family Practice] Patient/Caregiver Discharge Instructions Education Materials: Bacterial Prostatitis Print Language: Mongolian Stand Alone Forms: Valarie Award Info., Patient Portal Info Letter, Work/Release Restrictions Discharge Order Discharge Orders: Discharge (Routine); Ordered 01/04/25 Ordered By: Chau Smith Quality Discharge Quality Measures VTE prophylaxis
[2025-01-04] MEDS: INSULIN LISPRO (AdmeLOG) 1 UNIT/0.01 ML UNIT SC (11:34)
--- NOTE | 2025-01-04 11:40 | PC.NURSE ---
Dr abdullahi at bedside to see pt and clarify discharge orders. Urology f/u recommended. Per MD Abdullahi pt is clear to discharge now.
== END 2025-01-04 12:02 | disposition home or self-care (01) ==
LOC: SERX 18:03 → S3NX 21:15 → SERHOLD 01-02 10:07 → S3NX 01-02 10:07
PROVIDERS: Nurse Practitioner Primary Care; Admitting Provider Student in an Organized Health Care Education/Training Program; Emergency Provider Emergency Medicine; PCP Family Medicine; Visit Provider Internal Medicine
DX: N10 Acute pyelonephritis (principal); I10 Essential (primary) hypertension; E11.9 Type 2 diabetes mellitus without complications; N40.0 Benign prostatic hyperplasia without lower urinary tract symptoms; E78.5 Hyperlipidemia, unspecified; Z79.84 Long term (current) use of oral hypoglycemic drugs; R31.9 Hematuria, unspecified; K76.89 Other specified diseases of liver; I86.1 Scrotal varices; R91.8 Other nonspecific abnormal finding of lung field; I25.2 Old myocardial infarction
CPT/HCPCS: 36415; 71046; 74176; 76870; 80053; 81001; 83036; 83605; 83690; 83735; 84100; 84145; 84484; 85025; 86780; 87040; 87077; 87081; 87086; 87186; 87491; 87591; 87661; 93005; 93225; 96365; 96366; 96372; 96374; 96375; 99285; G0378; J0696; J1644; J1815; J2405; J2543; J3475; J7120; A9270

== ENCOUNTER 2025-03-06 16:37 | Inpatient (IN) | payer MEDICARE, SELFPAY ==
[2025-03-06 16:37] VITALS: BMI 31.6
[2025-03-06 17:02] VITALS: BP 156/83; PULSE 128; RESP 18; TEMP 37.8; O2SAT 96
--- NOTE | 2025-03-06 17:11 | EKG_ITS ---
[facility] Test Date: 2025-03-06 Pat Name: MOISES FAIRBANKS Department: Room: - Gender: Male Manager Nursing Home: : 1960 Requested By: Rober Millard Order Number: [id number] Reading MD: Rober Millard Measurements Intervals [place] Rate: 128 P: 33 [place]: 165 QRS: -68 QRSD: 91 T: 34 QT: 395 QTc: 578 Interpretive Statements SINUS TACHYCARDIA S1-S2-S3 PATTERN, CONSISTENT WITH PULMONARY DISEASE, RVH, OR NORMAL VARIANT LEFT ANTERIOR FASCICULAR BLOCK [QRS AXIS <= -45, QR IN I, RS IN II] POSSIBLE ANTERIOR MYOCARDIAL INFARCTION , OF INDETERMINATE AGE [30 ms Q WAVE IN V3/V4, OR R < 0.2 mV IN V4] Compared to ECG 01/02/2025 18:14:55 Right ventricular hypertrophy now present Left anterior fascicular block now present Myocardial infarct finding now present Sinus rhythm no longer present /store/S0/[id number].pdf
[2025-03-06 17:26] LABS: Lactate (Lactic Acid) 2.2 mMol/L (0.4-2.0)
[2025-03-06 17:37] LABS: Collection Type, Urine Clean Catch; Squamous Epithelial Cell,Urine 0 /hpf (0-5)
[2025-03-06 17:43] LABS: Bilirubin,Urine Negative (Negative); Blood,Urine Negative (Negative); Clarity,Urine Clear (Clear/Hazy); Color,Urine Lt-Yellow (Lt Yel-Yel); Glucose, Urine 3+ (Negative); Ketones,Urine Negative (Negative); Leukocyte Esterase,Urine Positive (Negative); Nitrite,Urine Negative (Negative); PH,Urine 7.0 (5.0-7.0); Protein,Urine Trace (Neg - Trace); RBC,Urine 4 /hpf (0-3); Specific Gravity,Urine 1.014 (1.001-1.035); Urobilinogen,Urine Negative mg/dL (0.0-1.0); WBC,Urine 15 /hpf (0-5)
[2025-03-06 17:44] LABS: Basophils # (Auto) 0.1 Thou/mm3 (0.0-0.2); Basophils % (Auto) 0 % (0-2.5); Eosinophils # (Auto) 0.0 Thou/mm3 (0.0-0.5); Eosinophils % (Auto) 0 % (0-10); Hematocrit 39.9 % (41.0-53.0); Hemoglobin 13.4 g/dL (13.5-16.0); Immature Granulocytes Auto 0.11 Thou/mm3 (0.00-0.00); Lymphocytes # (Auto) 1.7 Thou/mm3 (1.0-4.8); Lymphocytes % (Auto) 7 % (10-50); Mean Corpuscular HGB Conc 33.6 g/dl (31.0-37.0); Mean Corpuscular Hemoglobin 30.8 pg (25.0-35.0); Mean Corpuscular Volume 92 fL (80-100); Monocytes # (Auto) 1.2 Thou/mm3 (0.0-0.8); Monocytes % (Auto) 5 % (0-12); Neutrophils # (Auto) 20.2 Thou/mm3 (1.8-7.7); Neutrophils % (Auto) 87 % (37-80); Nucleated Red Blood Cell # 0.00 Thou/mm3 (0.00-0.00); Nucleated Red Blood Cell % 0 /100 WBC (0); Platelet Count 206 Thou/mm3 (140-440); RDW Standard Deviation 42.5 fL (35.1-43.9); Red Blood Count 4.35 Miln/mm3 (4.50-5.90); White Blood Count 23.3 Thou/mm3 (3.8-10.6)
[2025-03-06 17:47] LABS: Culture Indicated,Urine Yes
[2025-03-06 17:48] VITALS: BP 154/85; PULSE 123; RESP 20; TEMP 36.9; O2SAT 989
[2025-03-06 17:49] LABS: INR 1.0 (0.9-1.3); Partial Thromboplastin Time 28.2 Seconds (22.0-36.0); Prothrombin Time 10.8 Seconds (9.0-12.2)
[2025-03-06 17:51] VITALS: PULSE 123; PULSE 126; RESP 20; O2SAT 98
[2025-03-06] MEDS: ACETAMINOPHEN IVPB 1,000 MG/100 ML VIAL 250 MG IV (17:56)
[2025-03-06] MEDS: RINGERS LACTATED 1000 ML 1,000 ML 999 ML IV ×3 (17:59→21:34)
--- NOTE | 2025-03-06 17:59 | PD.EDADULT ---
ED General RME/HPI General Chief complaint: Urogenital-Male Stated complaint: DYSURIA X2 WEEKS WITH FOUL URINE ODOR Time Seen by Provider: 03/06/25 17:10 Arrival date/time: 03/06/25 16:37 Painful urination fever tachycardia HPI ongoing for the past 24 hours but had burning with urination for the past 2 weeks. Patient has had recurrent urinary tract infections. Patient claims that all after procedure was done scoping the bladder. Patient denies chest pain shortness of breath or difficulty breathing. Related Data Home Medications ?Medication ?Instructions ?Recorded ?Confirmed aspirin 81 mg tablet 81 mg PO QDAY 05/07/20 01/01/25 losartan 50 mg tablet 50 mg PO QDAY 05/07/20 01/01/25 metformin 1,000 mg tablet 1,000 mg PO BID 05/07/20 01/01/25 atorvastatin 20 mg tablet 20 mg PO DAILY 12/04/24 01/01/25 tirzepatide 5 mg/0.5 mL 5 mg subcut QWEEK 12/04/24 01/01/25 subcutaneous pen injector (Sylvester) naltrexone 50 mg tablet 50 mg PO QDAY 01/01/25 01/01/25 Allergies Allergy/AdvReac Type Severity Reaction Status Date / Time No Known Allergies Allergy Unknown Verified 03/06/25 16:41 Review of Systems Review of Systems Narrative Review of Systems: GEN: + fever, no chills, no weight loss EYES: No discharge, no visual changes, no pain HEENT: No ear pain, no congestion, no sore throat PULM: No shortness of breath, no cough, no congestion CV: No chest pain, no dyspnea on exertion, no palpitations GI: No nausea, no vomiting, no diarrhea, no pain, no constipation : No frequency, no urgency, + dysuria MUSC/SKEL: No joint pain, no back pain SKIN: No rash PSYCH: No hallucinations, no depression HEME/LYMPH: No easy bleeding or bruising tendencies NEURO: No weakness, no headache Past Medical History Past Medical History NEUROLOGIC: Negative Neurological Disorders or Seizures CARDIAC: Positive Cardiac Disorders, Myocardial Infarction, Hypercholesterolemia and Hypertension; Negative Congestive Heart Failure RESPIRATORY: Negative Chronic Obstructive Pulmonary Disease (COPD) or Asthma GASTROINTESTINAL: Negative Gastrointestinal Disorders or Hepatitis GENITOURINARY: Negative Genitourinary Disorders or Renal Disease MUSCULOSKELETAL: Positive Musculoskeletal Disorders and Arthritis ENT: Positive Cataracts ENDOCRINE: Positive Endocrine Disorders and Diabetes Mellitus Type 2; Negative Diabetes Mellitus Type 1 HEMATOLOGIC: Negative Blood Disorders or Sickle Cell Disease OTHER HISTORY: Positive Hospitalization, Chicken Pox and Mumps; Negative Autoimmune Disease, Shingles, Blood Transfusions, Blood Transfusion Reaction, Anesthesia Reactions, Organ Transplant or Cancer Family History FAMILY HISTORY: Positive Family Psychiatric Problems, Family Cardiac Disorders, Family Cancer and Family Surgery; Negative Family Respiratory Disorders, Family Gastrointestinal Problems or Family Anesthesia Reaction Surgical History SURGICAL: Positive Cardiac Surgery, Angiogram and Abdominal Surgery; Negative Nephrectomy, Joint Replacement, Neurologic Surgery, Vasectomy or Organ Transplant Social History SMOKING STATUS: Current some day smoker SUBSTANCE USE: does not use ED Exam Narrative Physical exam: [General: In moderate discomfort but not in any acute distress Head normocephalic HEENT: Within acceptable limits Neck is supple nontender Chest equal chest rise nontender to palpation Respiratory: Clear to auscultation no wheezes crackles or rubs CV: Rate rhythm is regular no murmurs rubs or clicks Abdomen is soft nontender no masses positive bowel sounds all 4 quadrants Back: No CVA tenderness no spinous process tenderness from cervical spine thoracic and lumbar spine Skin: Intact no petechiae rash induration ulceration or crepitus Extremities: Moving all extremity against resistance cap refill less than 2 seconds neurosensory intact Neuro: Awake alert oriented x3 Glascow coma 15 no focal deficits] Course Course Course Narrative: Last urine micro was completed on during an admission on January 01, 2025. Showing positive for greater than 100,000 colonies of E. coli. Resistant to Cipro gentamicin levofloxacin tetracycline and Bactrim. Patient's case clinical findings laboratory results were actually discussed with Dr. Morejon, the off going attending who is familiar with the patient's case and he is requesting the patient be admitted to the night team and handed off to him in the morning. Patient is in agreement with this plan Patient's case presented to the residence for Dr. Spann, who agreed to accept the patient for admission. Quality Measures none Orders Category Date Time Status Admit to Inpatient Status Routine Admission 03/06/25 21:10 Active Patient Condition Routine Admission 03/06/25 21:10 Ordered Activity as Tolerated Routine Care 03/06/25 21:11 Ordered COVID-19 Screening Questionnaire NOW Care 03/06/25 19:38 Active Enforcement Safety Officer STAT Care 03/06/25 17:11 Active Continuous Pulse Oximetry STAT Care 03/06/25 17:11 Completed Decision to Admit X1 Care 03/06/25 19:38 Completed EKG (ED ONLY) *Do not use* NOW Care 03/06/25 17:11 Completed Insert IV NOW Care 03/06/25 17:11 Active Miscellaneous Nursing Order NOW Care 03/06/25 21:14 Active NPO STAT Care 03/06/25 17:11 Active Notify provider NEEDED Care 03/06/25 21:10 Active Strict Intake and Output Routine Care 03/06/25 17:11 Ordered Diet Carbohydrate Consistent Diet 03/07/25 Breakfast Active EKG (ED Only) Stat Exams 03/06/25 17:11 Draft B-Type Natriuretic Peptide Stat Lab 03/06/25 17:15 Completed Blood Culture (Lab) Stat Lab 03/06/25 17:15 Received CBC AM DRAW Lab 03/07/25 05:00 Ordered CBC AM DRAW Lab 03/08/25 05:00 Ordered CBC AM DRAW Lab 03/09/25 05:00 Ordered CBC AM DRAW Lab 03/10/25 05:00 Ordered CBC AM DRAW Lab 03/11/25 05:00 Ordered CBC AM DRAW Lab 03/12/25 05:00 Ordered CBC AM DRAW Lab 03/13/25 05:00 Ordered CBC AM DRAW Lab 03/14/25 05:00 Ordered CBC AM DRAW Lab 03/15/25 05:00 Ordered CBC AM DRAW Lab 03/16/25 05:00 Ordered CBC AM DRAW Lab 03/17/25 05:00 Ordered CBC Stat Lab 03/06/25 17:15 Completed Chlamydia/GC/TV - PCR DAILY Lab 03/07/25 05:00 Ordered Comprehensive Metabolic Panel AM DRAW Lab 03/07/25 05:00 Ordered Comprehensive Metabolic Panel AM DRAW Lab 03/08/25 05:00 Ordered Comprehensive Metabolic Panel AM DRAW Lab 03/09/25 05:00 Ordered Comprehensive Metabolic Panel AM DRAW Lab 03/10/25 05:00 Ordered Comprehensive Metabolic Panel AM DRAW Lab 03/11/25 05:00 Ordered Comprehensive Metabolic Panel AM DRAW Lab 03/12/25 05:00 Ordered Comprehensive Metabolic Panel AM DRAW Lab 03/13/25 05:00 Ordered Comprehensive Metabolic Panel AM DRAW Lab 03/14/25 05:00 Ordered Comprehensive Metabolic Panel AM DRAW Lab 03/15/25 05:00 Ordered Comprehensive Metabolic Panel AM DRAW Lab 03/16/25 05:00 Ordered Comprehensive Metabolic Panel AM DRAW Lab 03/17/25 05:00 Ordered Comprehensive Metabolic Panel Stat Lab 03/06/25 17:15 Completed HIV (1&2) Antibody Rapid DAILY Lab 03/07/25 05:00 Ordered LDH (Lactate Dehydrogenase) Stat Lab 03/06/25 17:15 Completed Lactate (Lactic Acid) Stat Lab 03/06/25 17:15 Completed Lactic Acid, 3 HR Stat Lab 03/06/25 20:37 Completed Lipase Stat Lab 03/06/25 17:15 Completed Lipid Panel AM DRAW Lab 03/07/25 05:00 Ordered Magnesium AM DRAW Lab 03/07/25 05:00 Ordered Magnesium AM DRAW Lab 03/08/25 05:00 Ordered Magnesium AM DRAW Lab 03/09/25 05:00 Ordered Magnesium AM DRAW Lab 03/10/25 05:00 Ordered Magnesium AM DRAW Lab 03/11/25 05:00 Ordered Magnesium AM DRAW Lab 03/12/25 05:00 Ordered Magnesium AM DRAW Lab 03/13/25 05:00 Ordered Magnesium AM DRAW Lab 03/14/25 05:00 Ordered Magnesium AM DRAW Lab 03/15/25 05:00 Ordered Magnesium AM DRAW Lab 03/16/25 05:00 Ordered Magnesium AM DRAW Lab 03/17/25 05:00 Ordered Magnesium Stat Lab 03/06/25 17:15 Completed Partial Thromboplastin Time Stat Lab 03/06/25 17:15 Completed Phosphorous AM DRAW Lab 03/07/25 05:00 Ordered Phosphorous AM DRAW Lab 03/08/25 05:00 Ordered Phosphorous AM DRAW Lab 03/09/25 05:00 Ordered Phosphorous AM DRAW Lab 03/10/25 05:00 Ordered Phosphorous AM DRAW Lab 03/11/25 05:00 Ordered Phosphorous AM DRAW Lab 03/12/25 05:00 Ordered Phosphorous AM DRAW Lab 03/13/25 05:00 Ordered Phosphorous AM DRAW Lab 03/14/25 05:00 Ordered Phosphorous AM DRAW Lab 03/15/25 05:00 Ordered Phosphorous AM DRAW Lab 03/16/25 05:00 Ordered Phosphorous AM DRAW Lab 03/17/25 05:00 Ordered Phosphorous Stat Lab 03/06/25 17:15 Completed Procalcitonin Stat Lab 03/06/25 17:15 Completed Prothrombin Time with INR Stat Lab 03/06/25 17:15 Completed Syphilis DAILY Lab 03/07/25 05:00 Ordered Troponin I Stat Lab 03/06/25 17:15 Completed Urinalysis, C/S if Indicated Stat Lab 03/06/25 17:36 Completed Urine Culture Stat Lab 03/06/25 17:36 Received Urine Culture Stat Lab 03/06/25 21:23 Received Acetaminophen Ivpb [Ofirmev Inj] Med 03/06/25 17:11 Discontinued 1,000 mg in 100 ml IV NOW Acetaminophen Tab [Tylenol Tab] Med 03/06/25 21:10 Active 650 mg PO Q6H PRN Calcium Carbonate Med 03/06/25 20:56 Discontinued 600 mg PO X1 ONE Enoxaparin [Lovenox] Med 03/07/25 09:00 Active 40 mg SC QDAY Pantoprazole Inj [Protonix Inj] Med 03/06/25 21:22 Discontinued 40 mg IVP X1 ONE Ringers Lactated 1000 ml [Lactated Ringers] 1,000 ml Med 03/06/25 17:12 Discontinued IV 999 mls/hr Ringers Lactated 1000 ml [Lactated Ringers] 1,000 ml Med 03/06/25 18:49 Discontinued IV 999 mls/hr Ringers Lactated 1000 ml [Lactated Ringers] 1,000 ml Med 03/06/25 21:12 Discontinued IV 999 mls/hr cefTRIAXone/D5w 1gm IV premix [Rocephin/D5w 1gm IV Med 03/06/25 21:15 Active premix] 1 gm in 50 ml IV QDAY cefTRIAXone/D5w 1gm IV premix [Rocephin/D5w 1gm IV Med 03/06/25 17:57 Discontinued premix] 1 gm in 50 ml IV X1 Code Status Routine Oth 03/06/25 21:10 Ordered Oxygen Delivery NOW RT 03/06/25 17:11 Active Vital Signs Vital signs: Vital Signs Temperature 100.0 F 03/06/25 17:02 Pulse Rate 128 H 03/06/25 17:02 Respiratory Rate 18 03/06/25 17:02 Blood Pressure 156/83 H 03/06/25 17:02 Pulse Oximetry (%) 96 03/06/25 17:02 Oxygen Delivery Method Room Air 03/06/25 17:02 Discharge Plan Plan Patient Disposition: Other Care w/in Hosp ([facility]C/JESS) Prescriptions/Referrals Prescriptions/Med Rec: No Action losartan 50 mg Tablet 50 mg PO QDAY metformin 1,000 mg Tablet 1,000 mg PO BID aspirin 81 mg Tablet 81 mg PO QDAY atorvastatin 20 mg tablet 20 mg PO DAILY Mounjaro 5 mg/0.5 mL pen injector 5 mg subcut QWEEK naltrexone 50 mg tablet 50 mg PO QDAY Referrals: Guillaume Hammer PA-C [Primary Care Provider] - In 1 week Problem List Clinical Impression: Urinary tract infection Patient/Caregiver Discharge Instructions Print Language: Russian Stand Alone Forms: Valarie Award Info., Patient Portal Info Letter PA/HUMAN RESOURCES RECEPTIONIST Supervising Physician PA/HUMAN RESOURCES RECEPTIONIST Supervising Physician: Rober Tsai ENP MDM Clinical Information Provided by: patient Medical Records reviewed [facility] Meds/Rx considered, not ordered None Labs/Rad/Tests considered, not ordered None Chronic Illness/Social Conditions Explain: Recurrent UTI EKG EKG not done Labs Labs: interpreted by tn Lab(s) Interpretation(s): CBC shows a 23,300 WBCs hemoglobin 13.4 hematocrit 39.9. No thrombocytopenia Coags within acceptable limits. Lactic of 2.2. Imaging Imaging interpretation: none Medication Administration(s) Medication Administration History Acetaminophen (Acetaminophen 325 Mg Tablet) 650 mg PO Q6H PRN PRN Reason: Fever >101.5 or pain 1-3 Stop: 04/05/25 21:09 Last Admin: 03/06/25 21:33 Dose: 650 mg Documented By: CRYSTAL Enoxaparin Sodium (Enoxaparin Sod Inj 40 Mg/0.4 Ml Syringe) 40 mg SC QDAY RANDA Stop: 03/21/25 08:59 Ceftriaxone Sodium/Dextrose (Rocephin/D5w 1gm Iv Premix) 1 gm in 50 mls @ 100 mls/hr IV QDAY RANDA Stop: 03/13/25 21:14 Last Infusion: 03/06/25 22:35 Dose: Infused Documented By: Admin: 03/06/25 21:34 Dose: 100 mls/hr Documented By: CRYSTAL Discontinued Medications Calcium Carbonate (Calcium Carbonate 600 Mg Tablet) 600 mg PO X1 ONE Stop: 03/06/25 20:57 Last Admin: 03/06/25 21:26 Dose: Not Given Documented By: CRYSTAL Non-Admin Reason: Cancelled by Provider Acetaminophen (Ofirmev Inj) 1,000 mg in 100 mls @ 250 mls/hr IV NOW ONE Stop: 03/06/25 17:34 Last Infusion: 03/06/25 18:20 Dose: Infused Documented By: Admin: 03/06/25 17:56 Dose: 250 mls/hr Documented By: BY Lactated Ringer's (Lactated Ringers) 1,000 mls @ 999 mls/hr IV .Q1H1M ONE Stop: 03/06/25 18:12 Last Infusion: 03/06/25 19:12 Dose: Infused Documented By: Admin: 03/06/25 17:59 Dose: 999 mls/hr Documented By: BY Ceftriaxone Sodium/Dextrose (Rocephin/D5w 1gm Iv Premix) 1 gm in 50 mls @ 100 mls/hr IV X1 ONE Stop: 03/06/25 18:26 Last Infusion: 03/06/25 19:12 Dose: Infused Documented By: Admin: 03/06/25 18:36 Dose: 100 mls/hr Documented By: BY Lactated Ringer's (Lactated Ringers) 1,000 mls @ 999 mls/hr IV .Q1H1M ONE Stop: 03/06/25 19:49 Last Infusion: 03/06/25 20:52 Dose: Infused Documented By: Admin: 03/06/25 19:11 Dose: 999 mls/hr Documented By: BR Lactated Ringer's (Lactated Ringers) 1,000 mls @ 999 mls/hr IV .Q1H1M ONE Stop: 03/06/25 22:12 Last Admin: 03/06/25 21:34 Dose: 999 mls/hr Documented By: CRYSTAL Pantoprazole Sodium (Pantoprazole Inj 40 Mg Vial) 40 mg IVP X1 ONE Stop: 03/06/25 21:23 Last Admin: 03/06/25 21:33 Dose: 40 mg Documented By: CRYSTAL
[2025-03-06 18:07] LABS: B-Type Natriuretic Peptide 37 pg/mL (0-100)
[2025-03-06 18:15] LABS: Alanine Aminotransferase 19 U/L (10-49); Albumin, Serum 4.9 gm/dL (3.4-4.8); Albumin/Globulin Ratio 1.6 (1.2-2.2); Alkaline Phosphatase 94 U/L (46-116); Anion Gap 11 (7-16); Aspartate Amino Transferase 22 U/L (0-34); BUN/Creatinine Ratio 13 Ratio (12-20); Bilirubin,Total 0.7 mg/dL (0.3-1.2); Blood Urea Nitrogen 12 mg/dL (9-23); Calcium 10.0 mg/dL (8.3-10.6); Calcium (Corrected) 10.0 mg/dL (8.5-10.1); Carbon Dioxide 24.8 mMol/L (20.0-31.0); Chloride 103 mMol/L (98-107); Creatinine (Component) 0.9 mg/dL (0.6-1.3); Estimated Creatinine Clearance 73.3 mL/min (>60); Globulin 3.0 gm/dL (2.3-3.5); Glucose 198 mg/dL (74-106); LDH (Lactate Dehydrogenase) 153 U/L (120-246); Lipase 48 U/L (12-53); Magnesium 1.4 mg/dL (1.6-2.6); Osmolality,Calculated 283 (275-295); Phosphorous 2.7 mg/dL (2.4-5.1); Potassium 3.9 mMol/L (3.4-5.1); Procalcitonin 0.11 ng/ml (0.0-0.49); Sodium 139 mMol/L (136-145); Total Protein 7.9 gm/dL (5.7-8.2); Troponin I < 0.002 ng/mL (0.0-0.045); eGFR > 60 See Note
[2025-03-06] MEDS: cefTRIAXone/D5w 1gm IV premix 1 GM/50 ML BAG IV ×2 (18:36→21:34)
[2025-03-06 19:09] VITALS: BP 141/81; PULSE 105; RESP 22; O2SAT 95
[2025-03-06 20:25] LABS: Reflex Lactate? Y
[2025-03-06 20:41] LABS: Lactic Acid, 3 HR 1.5 mMol/L (0.4-2.0)
[2025-03-06 20:45] VITALS: BP 155/86; PULSE 100; RESP 20; TEMP 36.7; O2SAT 96
--- NOTE | 2025-03-06 21:21 | ESHP_ITS ---
<Statement entered by Carson Joyner MD - 03/07/25 02:49> Mr. Tejada is a 64-year-old male with PMH of hypertension, hyperlipidemia, non- insulin dependent type 2 diabetes mellitus, Hx of alcohol use disorder (sober since December) and BPH s/p prostate biopsy (12/2024) presented to the ED complaining of dysuria. Pt underwent prostate biopsy in December and was suppose to have taken antibiotics for 3 days prior to the procedure which he states he did not and only took 1 dose the day of the biopsy. Since his biopsy he has had repeat visits to [facility] primary care and ED including a hospital admission for UTI requiring IV antibiotics. Patient states he has taken a prolonged antibiotic course several times including Bactrim for 7 days, ciprofloxacin for 21 days and cefuroxime for 42 days and despite all the antibiotics continues to have dysuria. Previous urine cultures have been positive for E. coli which is resistant to both Bactrim and ciprofloxacin. Patient is admitted for failed outpatient antibiotic therapy for UTI versus prostatitis. Will start patient on IV Rocephin and redraw urinalysis and urine culture post prostate exam. EKG on admission also showed QTc prolongation of 578 will continue to closely monitor and repeat EKG tomorrow in the morning and avoid QT prolongation drugs. Although patient has been sober since December 2024 will order CIWA protocol and may be discontinued if patient continues to have CIWA of below 3 Patient was seen and examined by me personally. I have directly supervised and reviewed documentation by the team resident and agree with its findings. ------- Plan of care was discussed with the attending, Dr. Zana Joyner, PGY-2 Documentation for date of: 03/06/25 HPI History of Present Illness Chief complaint: Dysuria History of present illness: This patient is a 64-year-old male with a history of hypertension, BPH s/p prostate biopsy, hyperlipidemia, non-insulin dependent type 2 diabetes mellitus, and alcohol use disorder (sober since December) who presented to [facility] ED on 03/06 for dysuria. Patient was admitted for management of UTI versus prostatitis with failure of outpatient antibiotics. The patient has been previously seen at [facility] and was admitted on 01/01 for management of pyelonephritis. During this visit, the patient initially received Zosyn for 1 day, and then swapped to ceftriaxone, and was discharged with cefuroxime 500 mg twice daily to complete a 2-week course of antibiotics for suspected bacterial prostatitis (likely as the E. coli that was grown from his urine was resistant to most of the recommended prostatitis antibiotics). The patient stated that while in the hospital, his dysuria had resolved with IV antibiotics, but appeared to resume shortly after discharge on oral antibiotics. The patient would state that his PCP would refill his cefuroxime after it ran out, resulting in the patient completing an almost 60-day course of oral antibiotics. Over the past 24 hours prior to seeking care in the ED, patient was noted to feel feverish while waking up and was having chills periodically throughout the day. Additionally, the patient may have had some painful urination, however primarily his complaint is still more so his burning sensation on urination. Upon examination of the patient, patient did not appear overtly toxic and still complained of dysuria. Bedside prostate examination was performed, which identified an enlarged prostate with irregular contours, however the patient did not have any pain on examination. The patient noted that his last prostate exam done prior to his prostate biopsy back in 12/05/2024 was more painful. Patient denied any shortness of breath, chest pain, abdominal pain, constipation, diarrhea. ED course: Initial vitals significant for BP of 156/83, heart rate of 128. Initial labs significant for WBC 23.3, hemoglobin 13.4, lactic acid 2.2, and magnesium 1.4. Urinalysis positive for 3+ glucose, 4 RBC, 15 WBC, and positive leukocyte esterase. Patient was given 1 g of IV acetaminophen, 2 L of LR, 1 dose of IV ceftriaxone. 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 Skin: Warm, dry, intact. Head: Normocephalic, atraumatic. Eye: Normal conjunctiva, PERRL. Throat: Oral mucosa moist. No obvious lesions in oropharynx. Cardiovascular: Regular rate and rhythm, no murmur, +S1/S2. Respiratory: Lungs are clear to auscultation, respirations unlabored, no crackles, no wheezing. Gastrointestinal: Soft, nontender, non-distended. No guarding or rebound tenderness. Extremities: No edema, no cyanosis, no clubbing. 2+ radial pulse bilaterally, 2+ pedal pulse bilaterally. : Prostate examination shows enlarged prostate with irregular contours, non- tender to touch. Neuro: No focal deficits observed. Conversant, moving all extremities. No overt cerebellar signs/incoordination. Psychiatric: Cooperative, appropriate affect. Results: Labs 03/08/25 05:08 03/08/25 05:08 Labs: Short CBC 03/06/25 Range/Units 17:15 WBC 23.3 H (3.8-10.6) Thou/mm3 Hgb 13.4 L (13.5-16.0) g/dL Hct 39.9 L (41.0-53.0) % Plt Count 206 (140-440) Thou/mm3 BMP 03/06/25 17:15 Sodium 139 Potassium 3.9 Chloride 103 Carbon Dioxide 24.8 BUN 12 Creatinine 0.9 Glucose 198 H Calcium 10.0 Cardiac Enzymes 03/06/25 Range/Units 17:15 Troponin I < 0.002 (0.0-0.045) ng/mL Liver Function 03/06/25 Range/Units 17:15 Total Bilirubin 0.7 (0.3-1.2) mg/dL AST 22 (0-34) U/L ALT 19 (10-49) U/L Alkaline Phosphatase 94 (46-116) U/L Albumin 4.9 H (3.4-4.8) gm/dL Urine 03/06/25 Range/Units 17:36 Urine Color Lt-Yellow (Lt Yel-Yel) Urine Clarity Clear (Clear/Hazy) Urine pH 7.0 (5.0-7.0) Ur Specific Groom 1.014 (1.001-1.035) Urine Protein Trace (Neg - Trace) Urine Glucose (UA) 3+ A (Negative) Quality Measures Quality Measures VTE prophylaxis Advance care planning discussed with:: patient Medications Home Medications and Allergies Home Medications ?Medication ?Instructions ?Recorded ?Confirmed ?Type aspirin 81 mg tablet 81 mg PO QDAY 05/07/2003/07 History losartan 50 mg tablet 50 mg PO QDAY 05/07/2003/07 History metformin 1,000 mg tablet 1,000 mg PO BID 05/07/2009/24 History atorvastatin 20 mg tablet 20 mg PO DAILY 12/04/2409/24 History tirzepatide 5 mg/0.5 mL 5 mg subcut QWEEK 12/04/24 1 05/08/24 History subcutaneous pen injector (Mounjaro) naltrexone 50 mg tablet 50 mg PO QDAY 01/01/2503/07 History ferrous sulfate 325 mg (65 mg 325 mg PO QDAY 03/07/25 03/07/25 History iron) tablet (Feosol) tamsulosin 0.4 mg capsule 0.4 mg PO DAILY 03/07/2509/24 History tirzepatide 7.5 mg/0.5 mL 7.5 mg subcut QWEEK 03/07/25 03/07/25 History subcutaneous pen injector (Mounjaro) Allergies Allergy/AdvReac Type Severity Reaction Status Date / Time No Known Allergies Allergy Unknown Verified 03/06/25 16:41 Visit Medications Acetaminophen (Acetaminophen 325 Mg Tablet) 650 mg PO Q6H PRN PRN Reason: Fever >101.5 or pain 1-3 Stop: 04/05/25 21:09 Enoxaparin Sodium (Enoxaparin Sod Inj 40 Mg/0.4 Ml Syringe) 40 mg SC QDAY RANDA Stop: 03/21/25 08:59 Lactated Ringer's (Lactated Ringers) 1,000 mls @ 999 mls/hr IV .Q1H1M ONE Stop: 03/06/25 22:12 Ceftriaxone Sodium/Dextrose (Rocephin/D5w 1gm Iv Premix) 1 gm in 50 mls @ 100 mls/hr IV QDAY RANDA Stop: 03/13/25 21:14 Discontinued Medications Calcium Carbonate (Calcium Carbonate 600 Mg Tablet) 600 mg PO X1 ONE Stop: 03/06/25 20:57 Acetaminophen (Ofirmev Inj) 1,000 mg in 100 mls @ 250 mls/hr IV NOW ONE Stop: 03/06/25 17:34 Last Infusion: 03/06/25 18:20 Dose: Infused Lactated Ringer's (Lactated Ringers) 1,000 mls @ 999 mls/hr IV .Q1H1M ONE Stop: 03/06/25 18:12 Last Infusion: 03/06/25 19:12 Dose: Infused Ceftriaxone Sodium/Dextrose (Rocephin/D5w 1gm Iv Premix) 1 gm in 50 mls @ 100 mls/hr IV X1 ONE Stop: 03/06/25 18:26 Last Infusion: 03/06/25 19:12 Dose: Infused Lactated Ringer's (Lactated Ringers) 1,000 mls @ 999 mls/hr IV .Q1H1M ONE Stop: 03/06/25 19:49 Last Infusion: 03/06/25 20:52 Dose: Infused Assessment & Plan Plan This patient is a 64-year-old male with a history of hypertension, BPH s/p prostate biopsy, hyperlipidemia, non-insulin dependent type 2 diabetes mellitus, and alcohol use disorder (sober since December) who presented to [facility] ED on 03/06 for pyuria. Patient was admitted for management of UTI versus prostatitis with failure of outpatient antibiotics. #Sepsis #Acute on chronic prostatitis #Lactic acidosis #Dysuria #Urinary tract infection #Leukocytosis #Failure of outpatient antibiotics Patient noted to have recurrent dysuria and was previously admitted for management of pyelonephritis. Prostatitis at that time was suspected, so the patient was treated with outpatient cefuroxime to complete a 2-week course of antibiotics, however the patient had recurrence of the dysuria soon after completion of the IV antibiotics and starting the oral antibiotics. The patient's PCP refilled his cefuroxime for total of about 60 days, to which the patient is compliant with. However, the patient continues to have dysuria and now has subjective fevers and chills. Diagnostic: Urinalysis positive for 3+ glucose, 4 RBC, 15 WBC, and positive leukocyte esterase WBC 23.3 on admission and lactic acid 2.2 on admission, which decreased to 1.5 after adequate fluid resuscitation Urine culture collected 01/01 grew E. coli resistant to ciprofloxacin, levofloxacin, tetracycline, and TMP-SMX Urine culture before prostate massage collected 03/06, pending Urine culture after prostate massage collected 03/06, pending Treatment: Consider ID consultation as oral antibiotics with cefuroxime outpatient may not have adequate penetration to patient's prostate Ceftriaxone 1 g daily (03/06-) Consider fosfomycin 3 g every 48-72 hours for at least 6 weeks for off-label treatment of prostatitis STD panel ordered, pending #Prolonged QTc As noted on EKG taken 03/06, the patient has a QTc of 578. Treatment: Keep potassium above 4 and Mag above 2 Avoid QT prolonging medications #Ioi-[id number]-gapwbxfcn type 2 diabetes mellitus Patient history of noncemented type 2 diabetes mellitus and takes Mounjaro and metformin at home for management of this condition. Treatment: Sliding scale insulin Bedside glucose checks ACHS Will hold metformin for now while patient is inpatient given the patient's elevated lactic acid on presentation #History of alcohol dependence This patient has a history of alcohol dependence and has stated to have been sober since December. The patient has previously required ICU level care for management of his alcohol withdrawals in the past. The patient states that his dependence has significantly decreased with his home naltrexone Treatment: CIWA protocol Folic acid 1 mg twice daily Thiamine 100 mg twice daily #History of hypertension #History of hyperlipidemia Patient does have a history of these 2 conditions. Will resume medications as indicated after med rec is completed. DVT Prophylaxis: Lovenox GI Prophylaxis: N/A Bowel: N/A Diet: Carbohydrate consistent Brady: N/A Lines: PIV Antibiotics: Ceftriaxone Code Status: FULL Reason for Hospitalization: UTI vs proctitis failure of outpatient antibiotics Other Barriers to Discharge: Urine cultures Patient plan of care was discussed with the senior resident Dr. Joyner (PGY-2) and attending physician Dr. Zana Griffith, PGY1 Attending Provider Attestation/Addendum After examination of the patient and review of the clinical data I feel that this patient needs admission to the hospital for further treatment/evaluation. Plan of care discussed with patient and is in agreement. I Stephanie Spann MD, attest that I was physically present for rowell portions of evaluation, and examined patient, labs and imagings and plan of care were discussed with IM residents team, and I agree with the findings and plans documented above.
[2025-03-06] MEDS: ACETAMINOPHEN 325 MG TABLET 650 MG PO (21:33)
[2025-03-06 22:45] VITALS: BP 138/74; PULSE 97; RESP 20; TEMP 37.1; O2SAT 96
[2025-03-06] MEDS: THIAMINE 100 MG TABLET PO (23:21)
[2025-03-07] VITALS (7 sets, daily range): BP systolic 124–148; BP diastolic 66–79; PULSE 76–102; RESP 16–20; TEMP 36.4–37.3; O2SAT 96–98; BMI 31.1; BMI 31.4
[2025-03-07] MEDS: Magnesium Sulfate 4 GM Ivpb 4 GM/50 ML BAG IV ×2 (00:05→05:25)
[2025-03-07] MEDS: HYDROcodone/APAP 5/325 TABLET 1 TAB PO (00:52)
--- NOTE | 2025-03-07 05:00 | EKG_ITS ---
[facility] Test Date: 2025-03-07 Pat Name: MOISES FAIRBANKS [facility] Wood Borer: DENG : 1960 Requested By: Jerome Griffith Order Number: [id number] Reading MD: Jerome Griffith Measurements Intervals [place] Rate: 84 P: 26 W[place]: 180 QRS: -52 QRSD: 104 T: -1 QT: 335 QTc: 396 Interpretive Statements SINUS RHYTHM LOW QRS VOLTAGE IN PRECORDIAL LEADS LEFT ANTERIOR FASCICULAR BLOCK POSSIBLE ANTERIOR MYOCARDIAL INFARCTION , OF INDETERMINATE AGE Compared to ECG 03/06/2025 17:17:30 Low QRS voltage now present Sinus tachycardia no longer present Right ventricular hypertrophy no longer present Myocardial infarct finding still present /store/S0/[id number].pdf
--- NOTE | 2025-03-07 05:09 | PC.NURSE ---
called RT re notified order for ekg this a.m.
[2025-03-07 05:43] LABS: Basophils # (Auto) 0.1 Thou/mm3 (0.0-0.2); Basophils % (Auto) 0 % (0-2.5); Eosinophils # (Auto) 0.1 Thou/mm3 (0.0-0.5); Eosinophils % (Auto) 0 % (0-10); Hematocrit 36.0 % (41.0-53.0); Hemoglobin 12.2 g/dL (13.5-16.0); Immature Granulocytes Auto 0.12 Thou/mm3 (0.00-0.00); Lymphocytes # (Auto) 2.1 Thou/mm3 (1.0-4.8); Lymphocytes % (Auto) 11 % (10-50); Mean Corpuscular HGB Conc 33.9 g/dl (31.0-37.0); Mean Corpuscular Hemoglobin 31.5 pg (25.0-35.0); Mean Corpuscular Volume 93 fL (80-100); Monocytes # (Auto) 1.4 Thou/mm3 (0.0-0.8); Monocytes % (Auto) 8 % (0-12); Neutrophils # (Auto) 14.6 Thou/mm3 (1.8-7.7); Neutrophils % (Auto) 79 % (37-80); Nucleated Red Blood Cell # 0.00 Thou/mm3 (0.00-0.00); Nucleated Red Blood Cell % 0 /100 WBC (0); Platelet Count 183 Thou/mm3 (140-440); RDW Standard Deviation 43.0 fL (35.1-43.9); Red Blood Count 3.87 Miln/mm3 (4.50-5.90); White Blood Count 18.4 Thou/mm3 (3.8-10.6)
[2025-03-07 06:08] LABS: Glucose Estimated Average 123 mg/dL (80-131); Hemoglobin A1C 5.9 % Hgb (4.8-6.0)
[2025-03-07 06:11] LABS: Alanine Aminotransferase 14 U/L (10-49); Albumin, Serum 4.1 gm/dL (3.4-4.8); Albumin/Globulin Ratio 1.6 (1.2-2.2); Alkaline Phosphatase 81 U/L (46-116); Anion Gap 8 (7-16); Aspartate Amino Transferase 15 U/L (0-34); BUN/Creatinine Ratio 9 Ratio (12-20); Bilirubin,Total 0.7 mg/dL (0.3-1.2); Blood Urea Nitrogen 6 mg/dL (9-23); Calcium 8.9 mg/dL (8.3-10.6); Calcium (Corrected) 8.9 mg/dL (8.5-10.1); Carbon Dioxide 27.2 mMol/L (20.0-31.0); Cardiac Risk Estimate 2.9 RATIO (4.0-6.7); Chloride 107 mMol/L (98-107); Cholesterol 140 mg/dL (132-200); Creatinine (Component) 0.7 mg/dL (0.6-1.3); Estimated Creatinine Clearance 93.5 mL/min (>60); Globulin 2.6 gm/dL (2.3-3.5); Glucose 132 mg/dL (74-106); HDL Cholesterol 48 mg/dL (40-60); LDL Cholesterol,Calculated 79 mg/dL (0-130); Magnesium 2.2 mg/dL (1.6-2.6); Osmolality,Calculated 282 (275-295); Phosphorous 3.3 mg/dL (2.4-5.1); Potassium 3.6 mMol/L (3.4-5.1); Sodium 142 mMol/L (136-145); Total Protein 6.7 gm/dL (5.7-8.2); Triglycerides 66 mg/dL (30-150); eGFR > 60 See Note
[2025-03-07 06:12] LABS: HIV (1&2) Antibody Rapid Non-Reactive
[2025-03-07 06:16] LABS: Syphilis Nonreactive (Nonreactive)
[2025-03-07] MEDS: ACETAMINOPHEN 325 MG TABLET 650 MG PO (07:32)
[2025-03-07] MEDS: LOSARTAN POTASSIUM 25 MG TABLET 50 MG PO (08:54)
[2025-03-07] MEDS: TAMSULOSIN HCL 0.4 MG CAPSULE PO (08:54)
[2025-03-07] MEDS: THIAMINE 100 MG TABLET PO ×2 (08:54→20:03)
[2025-03-07] MEDS: FOLIC ACID 1 MG TABLET PO ×2 (08:54→20:03)
[2025-03-07] MEDS: cefTRIAXone/D5w 1gm IV premix 1 GM/50 ML BAG IV (08:55)
[2025-03-07] MEDS: ENOXAPARIN SOD INJ 40 MG/0.4 ML SYRINGE SC (08:55)
--- NOTE | 2025-03-07 10:37 | PC.SS ---
SS met with patient regarding his d/c plan. Pt is alert/oriented. Pt was admitted for UTI vs Procities. Pt confirmed demographic and contact information is correct on facesheet. Pt resides with . Pt ambulates independently without assistance or DME. Pt is ok with all ADLs. Patient?s pharmacy of choice is [facility] on [address]. Pt named his , Idania Tejada medical decision maker if he is unable. SS provided verbal d/c options for home or SNF. Patient?s choice is to return home upon d/c and son will provide transportation. Pt does not have an advance directive, SS offered, and pt declined. Pt states he is diabetic and takes oral medication and insulin injections for his diabetes. Pt followed up with PCP yesterday and he recommended pt to go to ER. D/C plan: Return home Next of Kin: Idania Tejada, , phone# [phone] PCP: Dr. Guillaume Hammer from [facility] Address: Correct on facesheet
--- NOTE | 2025-03-07 14:28 | PD.RESPRO ---
Documentation for date of: 03/07/25 Subjective Subjective Interval history: Patient was seen and examined at bedside. No acute events took place overnight. Patient continues to suffer from dysuria despite long course of antibiotic treatment initially with Bactrim for 7 days, ciprofloxacin for 21 days, and recent cefuroxime for 42 days. He was first symptomatic when he underwent prostate biopsy for elevated PSA. States that he was having fevers prior to presentation. Patient has been sober since December 2024 apparently, and is not having any withdrawal symptoms during the current hospitalization. Exam Vital Signs Temp Pulse Resp BP Pulse Ox O2 Del Method 97.6 F 81 18 124/66 98 Room Air 03/07/25 12:03/07/25 12:00 03/07/25 12:03/07/25 12:03/07/25 12:03/07/25 12:00 Narrative Exam General: Alert, no acute distress. Skin: Warm, dry, intact. Head: Normocephalic, atraumatic. Eye: Normal conjunctiva, PERRL. Throat: Oral mucosa moist. No obvious lesions in oropharynx. Cardiovascular: Regular rate and rhythm, no murmur, +S1/S2. Respiratory: Lungs are clear to auscultation, respirations unlabored, no crackles, no wheezing. Gastrointestinal: Soft, nontender, non-distended. No guarding or rebound tenderness. Extremities: No edema, no cyanosis, no clubbing. 2+ radial pulse bilaterally, 2+ pedal pulse bilaterally. : Prostate examination shows enlarged prostate with irregular contours, non-tender to touch. Neuro: No focal deficits observed. Conversant, moving all extremities. No overt cerebellar signs/incoordination. Psychiatric: Cooperative, appropriate affect. Objective Labs 03/08/25 05:08 03/08/25 05:08 Labs: Laboratory Results - last 24 hr 03/06/25 03/06/25 03/06/25 17:15 17:36 20:37 WBC 23.3 H RBC 4.35 L Hgb 13.4 L Hct 39.9 L MCV 92 MCH 30.8 MCHC 33.6 RDW Std Deviation 42.5 Plt Count 206 Neut % (Auto) 87 H Lymph % (Auto) 7 L [place] % (Auto) 5 Eos % (Auto) 0 Baso % (Auto) 0 Neut # (Auto) 20.2 H Lymph # (Auto) 1.7 [place] # (Auto) 1.2 H Eos # (Auto) 0.0 Baso # (Auto) 0.1 Immature Gran # (Auto) 0.11 H Absolute Nucleated RBC 0.00 Immature Gran % 1 H Nucleated RBC % 0 PT 10.8 INR 1.0 APTT 28.2 Sodium 139 Potassium 3.9 Chloride 103 Carbon Dioxide 24.8 Anion Gap 11 BUN 12 Creatinine 0.9 Estim Creat Clear Calc 73.3 eGFR > 60 BUN/Creatinine Ratio [address] Glu mg/dL Hemoglobin A1c Calculated Osmolality 283 Lactic Acid 2.2 H 1.5 Calcium 10.0 Corrected Calcium 10.0 Phosphorus 2.7 Magnesium 1.4 L Total Bilirubin 0.7 AST 22 ALT 19 Alkaline Phosphatase 94 Lactate Dehydrogenase 153 Troponin I < 0.002 B-Natriuretic Peptide 37 Total Protein 7.9 Albumin 4.9 H Globulin 3.0 Albumin/Globulin Ratio 1.6 Triglycerides Cholesterol LDL Cholesterol, Calc HDL Cholesterol Cholesterol/HDL Ratio Lipase 48 Procalcitonin 0.11 Ur Collection Type Clean Catch Urine Color Lt-Yellow Urine Clarity Clear Urine pH 7.0 Ur Specific Reading 1.014 Urine Protein Trace Urine Glucose (UA) 3+ A Urine Ketones Negative Urine Blood Negative Urine Nitrite Negative Urine Bilirubin Negative Urine Urobilinogen (Auto) Negative Ur Leukocyte Esterase Positive Urine RBC 4 H Urine WBC 15 H Ur Squamous Epith Cells 0 Urine Bacteria None Ur Culture Indicated? Yes Syphilis Serology HIV 1&2 Antibody Rapid 03/07/25 05:09 WBC 18.4 H RBC 3.87 L Hgb 12.2 L Hct 36.0 L MCV 93 MCH 31.5 MCHC 33.9 RDW Std Deviation 43.0 Plt Count 183 Neut % (Auto) 79 Lymph % (Auto) 11 [place] % (Auto) 8 Eos % (Auto) 0 Baso % (Auto) 0 Neut # (Auto) 14.6 H Lymph # (Auto) 2.1 [place] # (Auto) 1.4 H Eos # (Auto) 0.1 Baso # (Auto) 0.1 Immature Gran # (Auto) 0.12 H Absolute Nucleated RBC 0.00 Immature Gran % 1 H Nucleated RBC % 0 PT INR APTT Sodium 142 Potassium 3.6 Chloride 107 Carbon Dioxide 27.2 Anion Gap 8 BUN 6 L Creatinine 0.7 Estim Creat Clear Calc 93.5 eGFR > 60 BUN/Creatinine Ratio 9 L Glucose [address] Glu mg/dL 123 Hemoglobin A1c 5.9 Calculated Osmolality 282 Lactic Acid Calcium 8.9 Corrected Calcium 8.9 Phosphorus 3.3 Magnesium 2.2 Total Bilirubin 0.7 AST 15 ALT 14 Alkaline Phosphatase 81 Lactate Dehydrogenase Troponin I B-Natriuretic Peptide Total Protein 6.7 Albumin 4.1 D Globulin 2.6 Albumin/Globulin Ratio 1.6 Triglycerides 66 Cholesterol 140 LDL Cholesterol, Calc 79 HDL Cholesterol 48 Cholesterol/HDL Ratio 2.9 L Lipase Procalcitonin Ur Collection Type Urine Color Urine Clarity Urine pH Ur Specific Reading Urine Protein Urine Glucose (UA) Urine Ketones Urine Blood Urine Nitrite Urine Bilirubin Urine Urobilinogen (Auto) Ur Leukocyte Esterase Urine RBC Urine WBC Ur Squamous Epith Cells Urine Bacteria Ur Culture Indicated? Syphilis Serology Nonreactive HIV 1&2 Antibody Rapid Non-Reactive Quality Measures Quality Measures VTE prophylaxis Advance care planning discussed with:: patient Assessment & Plan Assessment Current Active Medications: Generic Name Dose Route Start Last Admin Trade Name Freq PRN Reason Stop Dose Admin Acetaminophen 650 mg 03/06/25 21:10 03/07/25 07:32 Acetaminophen 325 Mg Tablet PO 04/05/25 21:09 650 mg Q6H PRN Administration Fever >101.5 or pain 1-3 Hydrocodone Bitart/Acetaminophen 1 tab 03/06/25 23:03 03/07/25 00:52 Hydrocodone/Apap 5/325 Tablet PO 03/11/25 23:02 1 tab X1 PRN Administration Pain 4-10 Dextrose 25 ml 03/07/25 00:18 Dextrose 50%-Water Inj 50 Ml Syringe IV 04/06/25 00:17 Q15MIN PRN BG 50-70 responsive npo pt Dextrose 50 ml 03/07/25 00:18 Dextrose 50%-Water Inj 50 Ml Syringe IV 04/06/25 00:17 Q15MIN PRN BG <50 OR BG <70 & pt unresponsive Diazepam 10 mg 03/06/25 22:57 Diazepam Inj 5 Mg/Ml Vial 2 Ml IVP X1 PRN Breakthrough Agitation Enoxaparin Sodium 40 mg 03/07/25 09:00 03/07/25 08:55 Enoxaparin Sod Inj 40 Mg/0.4 Ml Syringe SC 03/21/25 08:59 40 mg QDAY RANDA Administration Folic Acid 1 mg 03/07/25 09:00 03/07/25 08:54 Folic Acid 1 Mg Tablet PO 03/12/25 08:59 1 mg BID RANDA Administration Glucagon 1 mg 03/07/25 00:18 Glucagon Inj 1 Mg Vial IM Q15MIN PRN BG <70, and no IV access Ceftriaxone Sodium/Dextrose 1 gm in 50 mls @ 100 mls/hr 03/06/25 21:15 03/07/25 08:55 Rocephin/D5w 1gm Iv Premix IV 03/13/25 21:14 100 mls/hr QDAY RANDA Administration Insulin Human Lispro 0 unit 03/07/25 07:30 03/07/25 12:08 Insulin Lispro (Admelog) 1 Unit/0.01 Ml Unit SC 04/06/25 07:29 Not Given AC [facility] Protocol Lorazepam 0.5 mg 03/06/25 22:57 03/06/25 23:21 Lorazepam 0.5 Mg Tablet PO 03/11/25 22:56 0.5 mg Q4HR PRN Administration CIWA Score 2-6 Lorazepam 1 mg 03/06/25 22:57 Lorazepam 0.5 Mg Tablet PO 03/11/25 22:56 Q4HR PRN CIWA SCORE 7-11 Lorazepam 2 mg 03/06/25 22:57 Lorazepam 0.5 Mg Tablet PO 03/11/25 22:56 Q4HR PRN CIWA SCORE 12-15 Losartan Potassium 50 mg 03/07/25 09:00 03/07/25 08:54 Losartan Potassium 25 Mg Tablet PO 04/06/25 08:59 50 mg QDAY RANDA Administration Tamsulosin HCl 0.4 mg 03/07/25 09:00 03/07/25 08:54 Tamsulosin Hcl 0.4 Mg Capsule PO 04/06/25 08:59 0.4 mg DAILY RANDA Administration Thiamine HCl 100 mg 03/06/25 23:00 03/07/25 08:54 Thiamine 100 Mg Tablet PO 03/11/25 22:59 100 mg BID RANDA Administration Plan This patient is a 64-year-old male with a history of hypertension, BPH s/p prostate biopsy, hyperlipidemia, non-insulin dependent type 2 diabetes mellitus, and alcohol use disorder (sober since December) who presented to [facility] ED on 03/06 for pyuria. Patient was admitted for management of UTI versus prostatitis with failure of outpatient antibiotics. #Dysuria #Urinary tract infection versus #Chronic prostatitis #Leukocytosis #Failure of outpatient antibiotics Patient noted to have recurrent dysuria and was previously admitted for management of pyelonephritis. Prostatitis at that time was suspected, so the patient was treated with outpatient cefuroxime to complete a 2-week course of antibiotics, however the patient had recurrence of the dysuria soon after completion of the IV antibiotics and starting the oral antibiotics. The patient's PCP refilled his cefuroxime for total of about 60 days, to which the patient is compliant with. However, the patient continues to have dysuria and now has subjective fevers and chills. Diagnostic: Urinalysis positive for 3+ glucose, 4 RBC, 15 WBC, and positive leukocyte esterase WBC 23.3 on admission and lactic acid 2.2 on admission, which decreased to 1.5 after adequate fluid resuscitation Urine culture collected 01/01 grew multidrug-resistant E. coli resistant to ciprofloxacin, levofloxacin, tetracycline, and TMP-SMX The E. coli was sensitive to cefuroxime however cefuroxime is likely not a reliable antimicrobial for prostatitis due to poor penetration into the prostate. Urine culture before prostate massage collected 03/06, pending Urine culture after prostate massage collected 03/06, pending Treatment: Ceftriaxone 2 g daily (03/06-) Will need to speak to PCP on Sunday about outpatient ABx therapy Consider fosfomycin 3 g every 48-72 hours for at least 6 weeks for off-label treatment of prostatitis STD panel ordered, pending #Prolonged QTc As noted on EKG taken 03/06, the patient has a QTc of 578. Treatment: Keep potassium above 4 and Mag above 2 Avoid QT prolonging medications #[id number] type 2 diabetes mellitus Patient history of noncemented type 2 diabetes mellitus and takes Mounjaro and metformin at home for management of this condition. Treatment: Sliding scale insulin Bedside glucose checks ACHS Will hold metformin for now while patient is inpatient given the patient's elevated lactic acid on presentation #History of alcohol dependence This patient has a history of alcohol dependence and has stated to have been sober since December. The patient has previously required ICU level care for management of his alcohol withdrawals in the past. The patient states that his dependence has significantly decreased with his home naltrexone Treatment: [facility] protocol Folic acid 1 mg twice daily Thiamine 100 mg twice daily #History of hypertension #History of hyperlipidemia Resume losartan 50mg and atorvastatin PO 20mg daily (Pt's home meds) DVT Prophylaxis: Lovenox GI Prophylaxis: N/A Bowel: N/A Diet: Carbohydrate consistent Brady: N/A Lines: PIV Antibiotics: Ceftriaxone Code Status: FULL Reason for Hospitalization: UTI vs proctitis failure of outpatient antibiotics Other Barriers to Discharge: Urine cultures The case was discussed with my senior resident Dr. Oneil PGY3 and my attending Dr. Jean-Pierre Alcantara DO, PGY1 Senior Resident Attestation: The patient reported that his symptoms started after he underwent prostate biopsy for elevated PSA, and received multiple antibiotics for extended duration. However, the previous oral antibiotics was not significant for his prostate penetration, and presented to back again. We will consult with his urologist to deter mine the antibiotics dose and duration. He will likely need PICC line with ceftriaxone. I discussed with and supervised the technical support internship physician involved in the care of this patient. I personally saw and examined the patient and discussed the assessment and plan with the entire medicine team, including my attending. I agree with the assessment and plan as documented above. Tulio Oneil MD PGY3 Internal Medicine Attending Provider Attestation/Addendum I have discussed and was present for the essential components of the history, physical examination, diagnosis, and treatment plan with the resident. I agree with the patient's care as documented by the resident and amended herein by me. Chidi Morejon DO. Although this document has been carefully reviewed, there may still be some phonetic and other typographical errors. These errors are purely grammatical due to imperfections in the software program and should not be construed in any way to compromise the substance of the patient's medical care during this visit. Patient seen and evaluated this AM. No acute events overnight, vital signs stable, patient afebrile. Patient slightly tachycardic in the a.m. but normalized at time of bedside visit. I/O 3500 mL / 1950 mL. WBC slight downtrend 18.4 today, hemoglobin stable at 12.2, BUN 6, normal creatinine, other electrolytes within normal limits. Blood cultures on 03/06 NGTD however urine culture on 03/06 demonstrating GNR, speciation pending. The last urine culture on 01/01/2025 demonstrated E. coli, multidrug resistant, at that time the patient was discharged on 01/04/2025 with cefuroxime 500 mg p.o. twice daily for 14 days postadmission. The patient was also admitted in December 2024 for acute alcohol withdrawal, following a prostate biopsy on 12/05 which were negative for any malignancy. It was suspected At that time he may have prostatitis and was started on Zosyn and transition to ceftriaxone. In early December, the patient was also suspected to have prostatitis and was on Zosyn and ceftriaxone however I just do not think He was treated for an adequate duration of time. I suspect the patient His urine culture on 01/04 demonstrated MDR E. coli and was resistant to first-line agents to include fluoroquinolones and Bactrim. The E. coli was sensitive to cefuroxime however cefuroxime is likely not a reliable antimicrobial for prostatitis due to poor penetration into the prostate. Other oral options such as Augmentin or doxycycline were also resistant in the past. Fosfomycin may be an option however we will probably consult infectious diseaseThis admission for further recommendations. Of note all blood cultures have been negative for this patient Summary of micro and antimicrobials: 12/06/2024, urine culture demonstrated E. coli 10-20,000 CFU, multidrug-resistant 01/01/2025, urine culture demonstrated E. coli greater than 100,000 CFU's, also multidrug-resistant (the same speciation and resistance to cultures on 12/06) Antimicrobials by date pulled from chart review: Outpatient from what I could find in records: 12/2024 ciprofloxacin 500 mg twice a day for 5 days 12/31/2024 Bactrim 800 mg / 160 mg twice daily for 7 days 01/04/2025 cefuroxime 500 mg p.o. twice daily for 14 days 01/30/2025 cefuroxime 500 mg tablets every 12 hours for 21 days Inpatient: Patient was on courses of Zosyn and ceftriaxone during his December and December admissions. Will continue to monitor closely, the patient may need a longer course of antibiotics
[2025-03-07] MEDS: ATORVASTATIN CALCIUM 20 MG TABLET PO (20:03)
[2025-03-08] VITALS (7 sets, daily range): BP systolic 118–139; BP diastolic 60–80; PULSE 71–87; RESP 17–19; TEMP 36.6–37.2; O2SAT 95–98
[2025-03-08 06:02] LABS: Basophils # (Auto) 0.1 Thou/mm3 (0.0-0.2); Basophils % (Auto) 0 % (0-2.5); Eosinophils # (Auto) 0.1 Thou/mm3 (0.0-0.5); Eosinophils % (Auto) 1 % (0-10); Hematocrit 37.3 % (41.0-53.0); Hemoglobin 12.6 g/dL (13.5-16.0); Immature Granulocytes Auto 0.05 Thou/mm3 (0.00-0.00); Lymphocytes # (Auto) 2.3 Thou/mm3 (1.0-4.8); Lymphocytes % (Auto) 16 % (10-50); Mean Corpuscular HGB Conc 33.8 g/dl (31.0-37.0); Mean Corpuscular Hemoglobin 31.5 pg (25.0-35.0); Mean Corpuscular Volume 93 fL (80-100); Monocytes # (Auto) 1.0 Thou/mm3 (0.0-0.8); Monocytes % (Auto) 7 % (0-12); Neutrophils # (Auto) 11.1 Thou/mm3 (1.8-7.7); Neutrophils % (Auto) 76 % (37-80); Nucleated Red Blood Cell # 0.00 Thou/mm3 (0.00-0.00); Nucleated Red Blood Cell % 0 /100 WBC (0); Platelet Count 197 Thou/mm3 (140-440); RDW Standard Deviation 43.4 fL (35.1-43.9); Red Blood Count 4.00 Miln/mm3 (4.50-5.90); White Blood Count 14.7 Thou/mm3 (3.8-10.6)
[2025-03-08 06:46] LABS: Alanine Aminotransferase 12 U/L (10-49); Albumin, Serum 4.2 gm/dL (3.4-4.8); Albumin/Globulin Ratio 1.3 (1.2-2.2); Alkaline Phosphatase 84 U/L (46-116); Anion Gap 9 (7-16); Aspartate Amino Transferase 15 U/L (0-34); BUN/Creatinine Ratio 9 Ratio (12-20); Bilirubin,Total 0.5 mg/dL (0.3-1.2); Blood Urea Nitrogen 7 mg/dL (9-23); Calcium 9.1 mg/dL (8.3-10.6); Calcium (Corrected) 9.1 mg/dL (8.5-10.1); Carbon Dioxide 25.1 mMol/L (20.0-31.0); Chloride 106 mMol/L (98-107); Creatinine (Component) 0.8 mg/dL (0.6-1.3); Estimated Creatinine Clearance 80.1 mL/min (>60); Globulin 3.2 gm/dL (2.3-3.5); Glucose 130 mg/dL (74-106); Magnesium 1.7 mg/dL (1.6-2.6); Osmolality,Calculated 279 (275-295); Phosphorous 3.3 mg/dL (2.4-5.1); Potassium 3.6 mMol/L (3.4-5.1); Sodium 140 mMol/L (136-145); Total Protein 7.4 gm/dL (5.7-8.2); eGFR > 60 See Note
[2025-03-08] MEDS: ENOXAPARIN SOD INJ 40 MG/0.4 ML SYRINGE SC (10:14)
[2025-03-08] MEDS: cefTRIAXone 2 GM in SODIUM CHLORIDE 0.9% (Popper) 50 ML IV (10:14)
[2025-03-08] MEDS: TAMSULOSIN HCL 0.4 MG CAPSULE PO (10:15)
[2025-03-08] MEDS: FOLIC ACID 1 MG TABLET PO ×2 (10:15→20:30)
[2025-03-08] MEDS: ASPIRIN EC 81 MG TABEC PO (10:15)
[2025-03-08] MEDS: LOSARTAN POTASSIUM 25 MG TABLET 50 MG PO (10:15)
[2025-03-08] MEDS: THIAMINE 100 MG TABLET PO ×2 (10:15→20:30)
--- NOTE | 2025-03-08 12:25 | ESPR_ITS ---
<Statement entered by Chau Smith MD - 03/08/25 15:53> I saw and examined patient personally and supervised PGY 1 resident, Dr. Alcantara with formulating a management plan. I agree with the documentation with the exceptions as listed below. Urine culture grew E. coli sensitive to ceftriaxone. Patient previously failed a 2-week outpatient course of cefuroxime 500 mg p.o. twice daily for chronic prostatitis. Plan is for IR guided PICC line placement tomorrow for completion of a total of 6 weeks of ceftriaxone 2 g IV daily for treatment resistant, recurrent bacterial prostatitis. Last day of treatment will be 04/17/2025. Once patient has home health set up, anticipate discharge within next 24 to 48 hours. Plan of care discussed with Attending Dr. Jean-Pierre Smith MD PGY 2 Disclaimer: This note was dictated by speech recognition. Minor errors in paper rewinder may be present due to voice recognition software. Documentation for date of: 03/08/25 Subjective Subjective Interval history: Patient was seen and examined at bedside. No acute events took place overnight. Patient reports marked improvement in urinary symptoms since admission to the point of no pain at all with latest catheter use. No orders, or abnormal discoloration other than darkness reported. Patient reports that on December 05 he had received the biopsy for elevated PSA and mild nocturia while he had been drinking. Symptoms began since and have been resistant to oral antibiotics. Patient denies fevers, N/B, constipation, diarrhea, or blood in urine, or in the stool. Exam Vital Signs Temp Pulse Resp BP Pulse Ox O2 Del Method 97.8 F 71 17 125/66 98 Room Air 03/08/25 12:03/08/25 12:03/08/25 12:03/08/25 12:03/08/25 12:03/08/25 12:00 Narrative Exam General: Alert, no acute distress. Skin: Warm, dry, intact. Head: Normocephalic, atraumatic. Eye: Normal conjunctiva, PERRL. Throat: Oral mucosa moist. No obvious lesions in oropharynx. Cardiovascular: Regular rate and rhythm, no murmur, +S1/S2. Respiratory: Lungs are clear to auscultation, respirations unlabored, no crackles, no wheezing. Gastrointestinal: Soft, nontender, non-distended. No guarding or rebound tenderness. Extremities: No edema, no cyanosis, no clubbing. 2+ radial pulse bilaterally, 2+ pedal pulse bilaterally. : Prostate examination shows enlarged prostate with irregular contours, non- tender to touch. Neuro: No focal deficits observed. Conversant, moving all extremities. No overt cerebellar signs/incoordination. Psychiatric: Cooperative, appropriate affect. Objective Labs 03/08/25 05:08 03/08/25 05:08 Labs: Laboratory Results - last 24 hr 03/08/25 05:08 WBC 14.7 H RBC 4.00 L Hgb 12.6 L Hct 37.3 L MCV 93 MCH 31.5 MCHC 33.8 RDW Std Deviation 43.4 Plt Count 197 Neut % (Auto) 76 Lymph % (Auto) 16 [place] % (Auto) 7 Eos % (Auto) 1 Baso % (Auto) 0 Neut # (Auto) 11.1 H Lymph # (Auto) 2.3 [place] # (Auto) 1.0 H Eos # (Auto) 0.1 Baso # (Auto) 0.1 Immature Gran # (Auto) 0.05 H Absolute Nucleated RBC 0.00 Immature Gran % 0 Nucleated RBC % 0 Sodium 140 Potassium 3.6 Chloride 106 Carbon Dioxide 25.1 Anion Gap 9 BUN 7 L Creatinine 0.8 Estim Creat Clear Calc 80.1 eGFR > 60 BUN/Creatinine Ratio 9 L Glucose 130 H Calculated Osmolality 279 Calcium 9.1 Corrected Calcium 9.1 Phosphorus 3.3 Magnesium 1.7 Total Bilirubin 0.5 AST 15 ALT 12 Alkaline Phosphatase 84 Total Protein 7.4 Albumin 4.2 Globulin 3.2 Albumin/Globulin Ratio 1.3 Quality Measures Quality Measures VTE prophylaxis Advance care planning discussed with:: patient Assessment & Plan Assessment Current Active Medications: Generic Name Dose Route Start Last Admin Trade Name Freq PRN Reason Stop Dose Admin Acetaminophen 650 mg 03/06/25 21:10 03/07/25 07:32 Acetaminophen 325 Mg Tablet PO 04/05/25 21:09 650 mg Q6H PRN Administration Fever >101.5 or pain 1-3 Aspirin 81 mg 03/08/25 09:00 03/08/25 10:15 Aspirin Ec 81 Mg Tabec PO 04/07/25 08:59 81 mg QDAY RANDA Administration Atorvastatin Calcium 20 mg 03/07/25 21:00 03/07/25 20:03 Atorvastatin Calcium 20 Mg Tablet PO 04/06/25 20:59 20 mg HS RANDA Administration Dextrose 25 ml 03/07/25 00:18 Dextrose 50%-Water Inj 50 Ml Syringe IV 04/06/25 00:17 Q15MIN PRN BG 50-70 responsive npo pt Dextrose 50 ml 03/07/25 00:18 Dextrose 50%-Water Inj 50 Ml Syringe IV 04/06/25 00:17 Q15MIN PRN BG <50 OR BG <70 & pt unresponsive Diazepam 10 mg 03/06/25 22:57 Diazepam Inj 5 Mg/Ml Vial 2 Ml IVP X1 PRN Breakthrough Agitation Enoxaparin Sodium 40 mg 03/07/25 09:00 03/08/25 10:14 Enoxaparin Sod Inj 40 Mg/0.4 Ml Syringe SC 03/21/25 08:59 40 mg QDAY RANDA Administration Folic Acid 1 mg 03/07/25 09:00 03/08/25 10:15 Folic Acid 1 Mg Tablet PO 03/12/25 08:59 1 mg BID RANDA Administration Glucagon 1 mg 03/07/25 00:18 Glucagon Inj 1 Mg Vial IM Q15MIN PRN BG <70, and no IV access Ceftriaxone Sodium 2 gm/ 50 mls @ 100 mls/hr 03/08/25 09:00 03/08/25 10:14 Sodium Chloride IV 03/15/25 08:59 100 mls/hr QDAY RANDA Administration Insulin Human Lispro 0 unit 03/07/25 07:30 03/08/25 11:53 Insulin Lispro (Admelog) 1 Unit/0.01 Ml Unit SC 04/06/25 07:29 Not Given AC [facility] Protocol Lorazepam 0.5 mg 03/06/25 22:57 03/06/25 23:21 Lorazepam 0.5 Mg Tablet PO 03/11/25 22:56 0.5 mg Q4HR PRN Administration CIWA Score 2-6 Lorazepam 1 mg 03/06/25 22:57 Lorazepam 0.5 Mg Tablet PO 03/11/25 22:56 Q4HR PRN CIWA SCORE 7-11 Lorazepam 2 mg 03/06/25 22:57 Lorazepam 0.5 Mg Tablet PO 03/11/25 22:56 Q4HR PRN CIWA SCORE 12-15 Losartan Potassium 50 mg 03/07/25 09:00 03/08/25 10:15 Losartan Potassium 25 Mg Tablet PO 04/06/25 08:59 50 mg QDAY RANDA Administration Tamsulosin HCl 0.4 mg 03/07/25 09:00 03/08/25 10:15 Tamsulosin Hcl 0.4 Mg Capsule PO 04/06/25 08:59 0.4 mg DAILY RANDA Administration Thiamine HCl 100 mg 03/06/25 23:00 03/08/25 10:15 Thiamine 100 Mg Tablet PO 03/11/25 22:59 100 mg BID RANDA Administration Plan This patient is a 64-year-old male with a history of hypertension, BPH s/p prostate biopsy, hyperlipidemia, non-insulin dependent type 2 diabetes mellitus, and alcohol use disorder (sober since December) who presented to [facility] ED on 03/06 for pyuria. Patient was admitted for management of UTI versus prostatitis with failure of outpatient antibiotics. #Dysuria #Urinary tract infection versus #Chronic prostatitis #Leukocytosis #Failure of outpatient antibiotics Patient noted to have recurrent dysuria and was previously admitted for management of pyelonephritis. Prostatitis at that time was suspected, so the patient was treated with outpatient cefuroxime to complete a 2-week course of antibiotics, however the patient had recurrence of the dysuria soon after completion of the IV antibiotics and starting the oral antibiotics. The patient's PCP refilled his cefuroxime for total of about 60 days, to which the patient is compliant with. However, the patient continues to have dysuria and now has subjective fevers and chills. Diagnostic: Urinalysis positive for 3+ glucose, 4 RBC, 15 WBC, and positive leukocyte esterase WBC 23.3 on admission and lactic acid 2.2 on admission, which decreased to 1.5 after adequate fluid resuscitation Urine culture collected 01/01 grew multidrug-resistant E. coli resistant to ciprofloxacin, levofloxacin, tetracycline, and TMP-SMX The E. coli was sensitive to cefuroxime however cefuroxime is likely not a reliable antimicrobial for prostatitis due to poor penetration into the prostate. Urine culture before prostate massage collected 03/06 showed MDR E coli with sensitivity to ceftriaxone Urine culture after prostate massage collected 03/06 possibly contaminated STD panel with Chlamydia, N gonorrhoeae, and Trichomonas negative. Treatment: - Ceftriaxone 2 g daily (03/06-) -ordered IR PICC line insertion for 6wk course of IV ABx -consider speaking to urologist STD panel ordered, pending #Prolonged QTc As noted on EKG taken 03/06, the patient has a QTc of 578. Treatment: Keep potassium above 4 and Mag above 2 Avoid QT prolonging medications #[id number] type 2 diabetes mellitus Patient history of noncemented type 2 diabetes mellitus and takes Mounjaro and metformin at home for management of this condition. Treatment: Sliding scale insulin Bedside glucose checks ACHS Will hold metformin for now while patient is inpatient given the patient's elevated lactic acid on presentation #History of alcohol dependence This patient has a history of alcohol dependence and has stated to have been sober since December. The patient has previously required ICU level care for management of his alcohol withdrawals in the past. The patient states that his dependence has significantly decreased with his home naltrexone Treatment: CIWA protocol Folic acid 1 mg twice daily Thiamine 100 mg twice daily #History of hypertension #History of hyperlipidemia Resume losartan 50mg and atorvastatin PO 20mg daily (Pt's home meds) DVT Prophylaxis: Lovenox GI Prophylaxis: N/A Bowel: N/A Diet: Carbohydrate consistent Brady: N/A Lines: PIV Antibiotics: Ceftriaxone Code Status: FULL Reason for Hospitalization: UTI vs proctitis failure of outpatient antibiotics Other Barriers to Discharge: pending home health set up prior to discharge. The case was discussed with my senior resident Dr. Smith and my attending Dr. Jean-Pierre Alcantara DO, PGY1 Attending Provider Attestation/Addendum I have discussed and was present for the essential components of the history, physical examination, diagnosis, and treatment plan with the resident. I agree with the patient's care as documented by the resident and amended herein by me. Chidi Morejon DO. Although this document has been carefully reviewed, there may still be some phonetic and other typographical errors. These errors are purely grammatical due to imperfections in the software program and should not be construed in any way to compromise the substance of the patient's medical care during this visit.
[2025-03-08 12:43] LABS: Chlamydia trachomatis PCR Negative (Not Detect); Neisseria Gonorrhoeae DNA PCR Negative (Not Detect); Trichomonas Negative (Negative)
--- NOTE | 2025-03-08 14:50 | PC.CM ---
I received a referral to discharge patient with home health for IV ABX therapy. Patient does no have PICC line placed at this time. I sent out referral to all home health and infusion companies.
[2025-03-08] MEDS: ATORVASTATIN CALCIUM 20 MG TABLET PO (20:30)
[2025-03-09] VITALS (7 sets, daily range): BP systolic 118–139; BP diastolic 63–78; PULSE 75–87; RESP 16–19; TEMP 36.6–37; O2SAT 97–98
[2025-03-09 06:39] LABS: Basophils # (Auto) 0.1 Thou/mm3 (0.0-0.2); Basophils % (Auto) 0 % (0-2.5); Eosinophils # (Auto) 0.2 Thou/mm3 (0.0-0.5); Eosinophils % (Auto) 1 % (0-10); Hematocrit 38.4 % (41.0-53.0); Hemoglobin 13.0 g/dL (13.5-16.0); Immature Granulocytes Auto 0.05 Thou/mm3 (0.00-0.00); Lymphocytes # (Auto) 1.9 Thou/mm3 (1.0-4.8); Lymphocytes % (Auto) 13 % (10-50); Mean Corpuscular HGB Conc 33.9 g/dl (31.0-37.0); Mean Corpuscular Hemoglobin 31.6 pg (25.0-35.0); Mean Corpuscular Volume 93 fL (80-100); Monocytes # (Auto) 1.2 Thou/mm3 (0.0-0.8); Monocytes % (Auto) 8 % (0-12); Neutrophils # (Auto) 11.7 Thou/mm3 (1.8-7.7); Neutrophils % (Auto) 78 % (37-80); Nucleated Red Blood Cell # 0.00 Thou/mm3 (0.00-0.00); Nucleated Red Blood Cell % 0 /100 WBC (0); Platelet Count 171 Thou/mm3 (140-440); RDW Standard Deviation 43.6 fL (35.1-43.9); Red Blood Count 4.11 Miln/mm3 (4.50-5.90); White Blood Count 15.1 Thou/mm3 (3.8-10.6)
[2025-03-09 07:13] LABS: Alanine Aminotransferase 13 U/L (10-49); Albumin, Serum 4.2 gm/dL (3.4-4.8); Albumin/Globulin Ratio 1.4 (1.2-2.2); Alkaline Phosphatase 88 U/L (46-116); Anion Gap 11 (7-16); Aspartate Amino Transferase 19 U/L (0-34); BUN/Creatinine Ratio 8 Ratio (12-20); Bilirubin,Total 0.4 mg/dL (0.3-1.2); Blood Urea Nitrogen 6 mg/dL (9-23); Calcium 9.1 mg/dL (8.3-10.6); Calcium (Corrected) 9.1 mg/dL (8.5-10.1); Carbon Dioxide 23.5 mMol/L (20.0-31.0); Chloride 107 mMol/L (98-107); Creatinine (Component) 0.8 mg/dL (0.6-1.3); Estimated Creatinine Clearance 80.1 mL/min (>60); Globulin 3.1 gm/dL (2.3-3.5); Glucose 151 mg/dL (74-106); Magnesium 1.5 mg/dL (1.6-2.6); Osmolality,Calculated 281 (275-295); Phosphorous 3.4 mg/dL (2.4-5.1); Potassium 4.3 mMol/L (3.4-5.1); Sodium 141 mMol/L (136-145); Total Protein 7.3 gm/dL (5.7-8.2); eGFR > 60 See Note
--- NOTE | 2025-03-09 09:54 | PD.RESPRO ---
Documentation for date of: 03/09/25 Subjective Subjective Interval history: Patient seen and examined today; no acute events overnight. PICC line not placed as of yet. Exam Vital Signs Temp Pulse Resp BP Pulse Ox O2 Del Method 98.1 F 87 18 132/78 H 97 Room Air 03/09/25 08:00 03/09/25 08:00 03/09/25 08:00 03/09/25 08:00 03/09/25 08:00 03/09/25 08:00 Narrative Exam General: Alert, no acute distress. Skin: Warm, dry, intact. Head: Normocephalic, atraumatic. Eye: Normal conjunctiva, PERRL. Throat: Oral mucosa moist. No obvious lesions in oropharynx. Cardiovascular: Regular rate and rhythm, no murmur, +S1/S2. Respiratory: Lungs are clear to auscultation, respirations unlabored, no crackles, no wheezing. Gastrointestinal: Soft, nontender, non-distended. No guarding or rebound tenderness. Extremities: No edema, no cyanosis, no clubbing. 2+ radial pulse bilaterally, 2+ pedal pulse bilaterally. Neuro: No focal deficits observed. Conversant, moving all extremities. No overt cerebellar signs/incoordination. Psychiatric: Cooperative, appropriate affect. Objective Labs 03/09/25 06:09 03/09/25 06:09 Labs: Laboratory Results - last 24 hr 03/07/25 03/09/25 15:40 06:09 WBC 15.1 H RBC 4.11 L Hgb 13.0 L Hct 38.4 L MCV 93 MCH 31.6 MCHC 33.9 RDW Std Deviation 43.6 Plt Count 171 Neut % (Auto) 78 Lymph % (Auto) 13 [place] % (Auto) 8 Eos % (Auto) 1 Baso % (Auto) 0 Neut # (Auto) 11.7 H Lymph # (Auto) 1.9 [place] # (Auto) 1.2 H Eos # (Auto) 0.2 Baso # (Auto) 0.1 Immature Gran # (Auto) 0.05 H Absolute Nucleated RBC 0.00 Immature Gran % 0 Nucleated RBC % 0 Sodium 141 Potassium 4.3 D Chloride 107 Carbon Dioxide 23.5 Anion Gap 11 BUN 6 L Creatinine 0.8 Estim Creat Clear Calc 80.1 eGFR > 60 BUN/Creatinine Ratio 8 L Glucose 151 H Calculated Osmolality 281 Calcium 9.1 Corrected Calcium 9.1 Phosphorus 3.4 Magnesium 1.5 L Total Bilirubin 0.4 AST 19 ALT 13 Alkaline Phosphatase 88 Total Protein 7.3 Albumin 4.2 Globulin 3.1 Albumin/Globulin Ratio 1.4 Chlam trachomat DNA PCR Negative N.gonorrhoeae DNA (PCR) Negative Trichomonas DNA Probe Negative Quality Measures Quality Measures VTE prophylaxis Advance care planning discussed with:: other Assessment & Plan Assessment Current Active Medications: Generic Name Dose Route Start Last Admin Trade Name Freq PRN Reason Stop Dose Admin Acetaminophen 650 mg 03/06/25 21:10 03/07/25 07:32 Acetaminophen 325 Mg Tablet PO 04/05/25 21:09 650 mg Q6H PRN Administration Fever >101.5 or pain 1-3 Aspirin 81 mg 03/08/25 09:00 03/08/25 10:15 Aspirin Ec 81 Mg Tabec PO 04/07/25 08:59 81 mg QDAY RANDA Administration Atorvastatin Calcium 20 mg 03/07/25 21:00 03/08/25 20:30 Atorvastatin Calcium 20 Mg Tablet PO 04/06/25 20:59 20 mg HS RANDA Administration Dextrose 25 ml 03/07/25 00:18 Dextrose 50%-Water Inj 50 Ml Syringe IV 04/06/25 00:17 Q15MIN PRN BG 50-70 responsive npo pt Dextrose 50 ml 03/07/25 00:18 Dextrose 50%-Water Inj 50 Ml Syringe IV 04/06/25 00:17 Q15MIN PRN BG <50 OR BG <70 & pt unresponsive Diazepam 10 mg 03/06/25 22:57 Diazepam Inj 5 Mg/Ml Vial 2 Ml IVP X1 PRN Breakthrough Agitation Enoxaparin Sodium 40 mg 03/07/25 09:00 03/08/25 10:14 Enoxaparin Sod Inj 40 Mg/0.4 Ml Syringe SC 03/21/25 08:59 40 mg QDAY RANDA Administration Folic Acid 1 mg 03/07/25 09:00 03/08/25 20:30 Folic Acid 1 Mg Tablet PO 03/12/25 08:59 1 mg BID RANDA Administration Glucagon 1 mg 03/07/25 00:18 Glucagon Inj 1 Mg Vial IM Q15MIN PRN BG <70, and no IV access Ceftriaxone Sodium 2 gm/ 50 mls @ 100 mls/hr 03/08/25 09:00 03/08/25 10:14 Sodium Chloride IV 03/15/25 08:59 100 mls/hr QDAY RANDA Administration Insulin Human Lispro 0 unit 03/07/25 07:30 03/09/25 07:45 Insulin Lispro (Admelog) 1 Unit/0.01 Ml Unit SC 04/06/25 07:29 Not Given AC RANDA Protocol Lorazepam 0.5 mg 03/06/25 22:57 03/06/25 23:21 Lorazepam 0.5 Mg Tablet PO 03/11/25 22:56 0.5 mg Q4HR PRN Administration CIWA Score 2-6 Lorazepam 1 mg 03/06/25 22:57 Lorazepam 0.5 Mg Tablet PO 03/11/25 22:56 Q4HR PRN CIWA SCORE 7-11 Lorazepam 2 mg 03/06/25 22:57 Lorazepam 0.5 Mg Tablet PO 03/11/25 22:56 Q4HR PRN CIWA SCORE 12-15 Losartan Potassium 50 mg 03/07/25 09:00 03/08/25 10:15 Losartan Potassium 25 Mg Tablet PO 04/06/25 08:59 50 mg QDAY RANDA Administration Tamsulosin HCl 0.4 mg 03/07/25 09:00 03/08/25 10:15 Tamsulosin Hcl 0.4 Mg Capsule PO 04/06/25 08:59 0.4 mg DAILY RANDA Administration Thiamine HCl 100 mg 03/06/25 23:00 03/08/25 20:30 Thiamine 100 Mg Tablet PO 03/11/25 22:59 100 mg BID RANDA Administration Plan This patient is a 64-year-old male with a history of hypertension, BPH s/p prostate biopsy, hyperlipidemia, non-insulin dependent type 2 diabetes mellitus, and alcohol use disorder (sober since December) who presented to [facility] ED on 03/06 for pyuria. Patient was admitted for management of UTI versus prostatitis with failure of outpatient antibiotics. #Dysuria #Urinary tract infection versus #Chronic prostatitis #Leukocytosis #Failure of outpatient antibiotics Patient noted to have recurrent dysuria and was previously admitted for management of pyelonephritis. Prostatitis at that time was suspected, so the patient was treated with outpatient cefuroxime to complete a 2-week course of antibiotics, however the patient had recurrence of the dysuria soon after completion of the IV antibiotics and starting the oral antibiotics. The patient's PCP refilled his cefuroxime for total of about 60 days, to which the patient is compliant with. However, the patient continues to have dysuria and now has subjective fevers and chills. Diagnostic: Urinalysis positive for 3+ glucose, 4 RBC, 15 WBC, and positive leukocyte esterase WBC 23.3 on admission and lactic acid 2.2 on admission, which decreased to 1.5 after adequate fluid resuscitation Urine culture collected 01/01 grew multidrug-resistant E. coli resistant to ciprofloxacin, levofloxacin, tetracycline, and TMP-SMX The E. coli was sensitive to cefuroxime however cefuroxime is likely not a reliable antimicrobial for prostatitis due to poor penetration into the prostate. Urine culture before prostate massage collected 03/06 showed MDR E coli with sensitivity to ceftriaxone Urine culture after prostate massage collected 03/06 possibly contaminated STD panel with Chlamydia, N gonorrhoeae, and Trichomonas negative. Plan: - Ceftriaxone 2 g daily (03/06-) -ordered IR PICC line insertion for 6wk course of IV ABx -consider speaking to urologist STD panel ordered, pending #Prolonged QTc As noted on EKG taken 03/06, the patient has a QTc of 578. Plan: Keep potassium above 4 and Mag above 2 Avoid QT prolonging medications #[id number] type 2 diabetes mellitus Patient history of type 2 diabetes mellitus and takes Mounjaro and metformin at home for management of this condition. Plan: Sliding scale insulin Bedside glucose checks ACHS Will hold metformin for now while patient is inpatient given the patient's elevated lactic acid on presentation #History of alcohol dependence This patient has a history of alcohol dependence and has stated to have been sober since December. The patient has previously required ICU level care for management of his alcohol withdrawals in the past. The patient states that his dependence has significantly decreased with his home naltrexone Plan: CIWA protocol Folic acid 1 mg twice daily Thiamine 100 mg twice daily #History of hypertension #History of hyperlipidemia Resume losartan 50mg and atorvastatin PO 20mg daily (Pt's home meds) DVT Prophylaxis: Lovenox GI Prophylaxis: N/A Bowel: N/A Diet: Carbohydrate consistent Brady: N/A Lines: PIV Antibiotics: Ceftriaxone This case was discussed with my attending physician, Dr. Morejon, and senior resident, Dr. Oneil. Darvin Salcedo, PGY1 Senior Resident Attestation: The patient reported doing well this morning. His baseline placement is pending, and home health pending for ceftriaxone IV for 6 weeks. Once that set up are done, the patient will be discharged home. In the meantime, we will continue with IV ceftriaxone 2 mg daily. I discussed with and supervised the electrical engineering intern physician involved in the care of this patient. I personally saw and examined the patient and discussed the assessment and plan with the entire medicine team, including my attending. I agree with the assessment and plan as documented above. Tulio Oneil MD PGY3 Internal Medicine Attending Provider Attestation/Addendum I have discussed and was present for the essential components of the history, physical examination, diagnosis, and treatment plan with the resident. I agree with the patient's care as documented by the resident and amended herein by me. Chidi Morejon DO. Although this document has been carefully reviewed, there may still be some phonetic and other typographical errors. These errors are purely grammatical due to imperfections in the software program and should not be construed in any way to compromise the substance of the patient's medical care during this visit. Patient seen and evaluated this AM. No acute events overnight, vital signs stable, patient afebrile, patient awaiting PICC line could not be performed today due to schedule, insurance authorization for home health and long-term IV antibiotic still pending as well. Patient will need 6 weeks of IV ceftriaxone 2 g daily for chronic prostatitis secondary to multidrug-resistant E. coli. Patient also status post numerous outpatient antibiotic regimens without success. Likely discharge tomorrow on 03/09
[2025-03-09] MEDS: cefTRIAXone 2 GM in SODIUM CHLORIDE 0.9% (Popper) 50 ML IV (10:08)
[2025-03-09] MEDS: ENOXAPARIN SOD INJ 40 MG/0.4 ML SYRINGE SC (10:08)
[2025-03-09] MEDS: TAMSULOSIN HCL 0.4 MG CAPSULE PO (10:09)
[2025-03-09] MEDS: ASPIRIN EC 81 MG TABEC PO (10:09)
[2025-03-09] MEDS: THIAMINE 100 MG TABLET PO ×2 (10:09→20:14)
[2025-03-09] MEDS: LOSARTAN POTASSIUM 25 MG TABLET 50 MG PO (10:09)
[2025-03-09] MEDS: FOLIC ACID 1 MG TABLET PO ×2 (10:09→20:14)
[2025-03-09] MEDS: MAGNESIUM OXIDE 400 MG TABLET PO (10:09)
--- NOTE | 2025-03-09 11:12 | PC.SS ---
Follow up note: Pt is requiring IV antibiotic, Ceftriaxone 2grm 1 X day until Apr 16, 2024. Pt will return home with HH for IV antibiotic. SS received call from DILLON Krueger phone# [phone] and transferred call to transfer nursePerri to arrange HH for IV antibitic.
--- NOTE | 2025-03-09 15:50 | PC.CC ---
Addendum entered by Debi Miles RN 03/09/25 16:41: [facility] accepted. SOC pending DC date Original Note: [facility] has accepted, waiting for HH agency and PICC placement.
[2025-03-09] MEDS: ATORVASTATIN CALCIUM 20 MG TABLET PO (20:14)
[2025-03-10] VITALS (10 sets, daily range): BP systolic 122–143; BP diastolic 66–91; PULSE 61–86; RESP 16–19; TEMP 36.4–36.8; O2SAT 95–99
[2025-03-10 06:13] LABS: Basophils # (Auto) 0.1 Thou/mm3 (0.0-0.2); Basophils % (Auto) 1 % (0-2.5); Eosinophils # (Auto) 0.2 Thou/mm3 (0.0-0.5); Eosinophils % (Auto) 3 % (0-10); Hematocrit 38.0 % (41.0-53.0); Hemoglobin 12.6 g/dL (13.5-16.0); Immature Granulocytes Auto 0.03 Thou/mm3 (0.00-0.00); Lymphocytes # (Auto) 2.0 Thou/mm3 (1.0-4.8); Lymphocytes % (Auto) 24 % (10-50); Mean Corpuscular HGB Conc 33.2 g/dl (31.0-37.0); Mean Corpuscular Hemoglobin 30.9 pg (25.0-35.0); Mean Corpuscular Volume 93 fL (80-100); Monocytes # (Auto) 1.1 Thou/mm3 (0.0-0.8); Monocytes % (Auto) 13 % (0-12); Neutrophils # (Auto) 5.1 Thou/mm3 (1.8-7.7); Neutrophils % (Auto) 60 % (37-80); Nucleated Red Blood Cell # 0.00 Thou/mm3 (0.00-0.00); Nucleated Red Blood Cell % 0 /100 WBC (0); Platelet Count 234 Thou/mm3 (140-440); RDW Standard Deviation 42.7 fL (35.1-43.9); Red Blood Count 4.08 Miln/mm3 (4.50-5.90); White Blood Count 8.5 Thou/mm3 (3.8-10.6)
[2025-03-10 06:38] LABS: Alanine Aminotransferase 12 U/L (10-49); Albumin, Serum 4.1 gm/dL (3.4-4.8); Albumin/Globulin Ratio 1.3 (1.2-2.2); Alkaline Phosphatase 89 U/L (46-116); Anion Gap 11 (7-16); Aspartate Amino Transferase 14 U/L (0-34); BUN/Creatinine Ratio 13 Ratio (12-20); Bilirubin,Total 0.4 mg/dL (0.3-1.2); Blood Urea Nitrogen 9 mg/dL (9-23); Calcium 9.3 mg/dL (8.3-10.6); Calcium (Corrected) 9.3 mg/dL (8.5-10.1); Carbon Dioxide 26.5 mMol/L (20.0-31.0); Chloride 106 mMol/L (98-107); Creatinine (Component) 0.7 mg/dL (0.6-1.3); Estimated Creatinine Clearance 91.5 mL/min (>60); Globulin 3.1 gm/dL (2.3-3.5); Glucose 145 mg/dL (74-106); Magnesium 1.7 mg/dL (1.6-2.6); Osmolality,Calculated 286 (275-295); Phosphorous 3.8 mg/dL (2.4-5.1); Potassium 4.0 mMol/L (3.4-5.1); Sodium 143 mMol/L (136-145); Total Protein 7.2 gm/dL (5.7-8.2); eGFR > 60 See Note
--- NOTE | 2025-03-10 07:00 | XR_ITS ---
EXAM: Fluoroscopic and ultrasound-guided right brachial vein PICC line placement. INDICATION needs antibiotics. DATE: 03/10/2025, 1:31 p.m. Fluoroscopy time: 1.1 minutes Dose: 4.58 mGy PROCEDURE: The area around the existing butterfly brachial vein IV was cleaned and draped in normal sterile surgical fashion. 10 cc of 1% lidocaine was used for local anesthesia. 0.018 wire was advanced through the butterfly into the brachial vein and the butterfly was removed. 5 Brazilian peel-away sheath was advanced over the wire removed. 0.018 measuring wire was then advanced through the peel-away sheath into the SVC. PICC line was cut to 48 cm and then advanced over the wire and the wire removed. Distal catheter tip was appropriately positioned at the SVC - right atrial junction. Both ports flushed and aspirated easily. The catheter was secured at the antecubital fossa and covered with a sterile dressing. There were no immediate complications. IMPRESSION: Successful right brachial vein PICC line placement as above. Catheter is ready for use.
[2025-03-10] MEDS: cefTRIAXone 2 GM in SODIUM CHLORIDE 0.9% (Popper) 50 ML IV (09:02)
[2025-03-10] MEDS: LOSARTAN POTASSIUM 25 MG TABLET 50 MG PO (09:03)
[2025-03-10] MEDS: THIAMINE 100 MG TABLET PO (09:03)
[2025-03-10] MEDS: TAMSULOSIN HCL 0.4 MG CAPSULE PO (09:03)
[2025-03-10] MEDS: ASPIRIN EC 81 MG TABEC PO (09:03)
[2025-03-10] MEDS: FOLIC ACID 1 MG TABLET PO (09:03)
--- NOTE | 2025-03-10 11:17 | PC.CC ---
Addendum entered by Debi Miles RN 03/10/25 17:51: DC Summary, DC instructions, and PICC line report will need to be sent to DILLON and NATASHA Addendum entered by Debi Miles RN 03/10/25 15:30: Dionna informed me PICC line placed. Coordinated with Edgar kraft/ Natasha and Faheem kraft/ DILLON. [facility] SOC 03/11 and [facility] will deliver meds today. Informed Dionna that pt is all set and can be discharged today. Original Note: spoke to bedside nurse Dionna to f/u on PICC line insertion, she stated he is scheduled to have it placed today. I will monitor for PICC line placement report
[2025-03-10] MEDS: HEPARIN SOD LOCK SYR 100 UNIT/ML 500 UNIT STFIELD (14:03)
[2025-03-10] MEDS: LIDOCAINE INJ PF 1% 30 ML VIAL 10 ML INFL (14:03)
--- NOTE | 2025-03-10 14:37 | PC.NURSE ---
1419 patient post picc line insertion to right arm under local anesthesia, report given to Dionna SEAY, patient transferred back to room 369
--- NOTE | 2025-03-10 14:46 | ESDS_ITS ---
Planned Discharge Date 03/10/25 DS: Providers Provider Date of admission: 03/06/25 21:10 Primary care physician: Guillaume Hammer PA-C Admitting Provider: Stephanie Spann MD Attending Provider on Admission: Stephanie Spann MD Consults: 03/07/25 00:39 Referral Registered Dietitian Routine Comment: Attending Provider on DC: Saturnino Mustafa MD Discharging Provider: Santosh Alcantara DO DS: Diagnosis Problem List Completed Was Problem List Reviewed/Reconciled?: Yes Hospital Course Hospital Course Hospital course: 64-year-old male with a history of hypertension, BPH status post prostate biopsy, hyperlipidemia, and zjt-mdlojtv-enjzyznna type 2 diabetes mellitus and alcohol use disorder (sober since December) presented to [facility] ED on 03/06 for pyuria and dysuria. Patient noted to have recurrent dysuria and was previously admitted for management of pyelonephritis. Prostatitis at that time was suspected, so the patient was treated with outpatient cefuroxime to complete a 2-week course of antibiotics, however the patient had recurrence of the dysuria soon after completion of the IV antibiotics and starting the oral antibiotics. The patient's PCP refilled his cefuroxime for total of about 60 days, however he continued to have dysuria and presented with subjective fevers and chills. Urinalysis was positive for 15 WBC and leukocyte esterase. WBC 23.3 on admission and lactic acid 2.2. Urine culture collected previously had grown multidrug-resistant E. coli resistant to ciprofloxacin, levofloxacin, tetracycline, and TMP SMX. Although E. coli was sensitive to cefuroxime, the choice of antibiotic was not a reliable one for prostatitis due to poor penetration into the tissue. Summary of micro and antimicrobials: 12/06/2024, urine culture demonstrated E. coli 10-20,000 CFU, multidrug-resistant 01/01/2025, urine culture demonstrated E. coli greater than 100,000 CFU's, also multidrug-resistant (the same speciation and resistance to cultures on 12/06) Antimicrobials by date pulled from chart review: 12/2024 ciprofloxacin 500 mg twice a day for 5 days 12/31/2024 Bactrim 800 mg / 160 mg twice daily for 7 days 01/04/2025 cefuroxime 500 mg p.o. twice daily for 14 days 01/30/2025 cefuroxime 500 mg tablets every 12 hours for 21 days Patient had been on courses of Zosyn and ceftriaxone during his December and December admissions. Patient was started on ceftriaxone IV 2 g daily inpatient while awaiting urine cultures which grew MDR E. coli with sensitivity to ceftriaxone. STD panel with chlamydia, and gonorrhea, and trichomonas were negative. Patient received PICC line insertion on 03/10 after insurance authorization of home health to deliver antibiotics at home for 6 weeks. Patient symptoms improved markedly including resolution of fevers, lightening up of urine, decreased in urinary frequency, and improvement in dysuria. At the time of discharge, patient is medically stable and deemed safe to return to his/her previous state of living. Admission diagnosis: #Dysuria #Urinary tract infection #Chronic prostatitis #Leukocytosis #Failure of outpatient antibiotics #Prolonged QTc #Edb-qqsyfvp-vprxzcqmj type 2 diabetes mellitus #History of alcohol dependence #History of hypertension #History of hyperlipidemia Discharge instructions: - You have been started on Ceftriaxone 2g IV per day to complete on 04/17/2025. Please see your PCP to remove PICC line after. - Continue the rest of your medications as before. - Follow up with your primary care physician within 1 week of discharge. If you do not have a primary care physician, please follow up with the [facility] Residents clinic ([phone]) ? If you experience any new, worsening or persistent symptoms either call your primary doctor, or dial 911 or present to the emergency department. This case was discussed with my attending physician, Dr. Mustafa, and senior resident, Dr Oneil. Even though this this note was carefully revised there may still be minor errors in pipe racker due to voice recognition software. Santosh Alcantara, DO PGY I Senior Resident Attestation: I discussed with and supervised the web development intern physician involved in the care of this patient. I personally saw and examined the patient and discussed the assessment and plan with the entire medicine team, including my attending. I agree with the discharge plan as documented above. Tulio Oneil MD PGY3 Internal Medicine Status at Discharge Overall status at discharge: patient is back to baseline Time Spent with Patient Time attestation: Total time spent providing and/or coordinating discharge services: More than 50% of the patient's total hospital stay Time spent: Greater than 30 minutes Home Health Home Health Referral Orders: 03/08/25 14:05 Home Health Referral Routine Reason For Exam: IV Abx Home-Bound The patient must either because of illness or injury, need the aid of supportive devices such as crutches, canes, wheelchairs, and walkers; the use of special transportation; or the assistance of another person in order to leave their place of residence; OR have a condition such that leaving his or her home is medically contraindicated. In addition, the patient also meets the following criteria: patient is normally unable to leave the home and leaving home requires considerable taxing effort. Addendum to Home Health Certification Practitioner's Certification: I certify that the patient has been under my care in the hospital and the care of attending physician (see below). We had a yzed-uh-faeq encounter on (see date below). My clinical findings indicate that the patient is home bound per the above criteria and the Home Health Services noted in these orders are medically necessary. The primary reason for the tfip-ml-eevy encounter is related to the fact that the patient requires home health services. Date Certifying Ywrp-rc-Inuy Physician Encounter: 03/06/25 Physician's Name who will Assume Oversight for Services: Guillaume Hammer Physician's Phone No.who will Assume Oversight for Service: [employer]ICE [employer]IDENT [employer] - Community Resources: No PT to Evaluate: No PT to evaluate and provide a treatmnet plan to increase patient's mobility and strength. Wound Care: No IV Therapy: Yes IV Medication: Ceftriaxone IV Dose: 2 Gm IV Frequency: Daily IV Stop Date: 04/17/25 Discontinue PICC Line Once Treatment Complete: Yes RN Safety Evaluation: Yes RN to evaluate and create a plan of care that will produce positive outcomes. Palliative Treatment: No Palliative treatment and evaluate the need for hospice. Home Health Aide - Personal Care: No Home Health Aide to assist with any ADL's. Exam Vital Signs Temp Pulse Resp BP Pulse Ox O2 Del Method 98.3 F 73 16 135/72 H 99 Room Air 03/10/25 12:00 03/10/25 14:15 03/10/25 14:15 03/10/25 14:15 03/10/25 14:15 03/10/25 14:15 Narrative Exam General: Alert, no acute distress. Skin: Warm, dry, intact. Head: Normocephalic, atraumatic. Eye: Normal conjunctiva, PERRL. Throat: Oral mucosa moist. No obvious lesions in oropharynx. Cardiovascular: Regular rate and rhythm, no murmur, +S1/S2. Respiratory: Lungs are clear to auscultation, respirations unlabored, no crackles, no wheezing. Gastrointestinal: Soft, nontender, non-distended. No guarding or rebound tenderness. Extremities: No edema, no cyanosis, no clubbing. 2+ radial pulse bilaterally, 2+ pedal pulse bilaterally. Neuro: No focal deficits observed. Conversant, moving all extremities. No overt cerebellar signs/incoordination. Psychiatric: Cooperative, appropriate affect. Discharge Plan Plan Patient Disposition: Home w/HOME HEALTH Patient condition on transfer: Stable Care Plan Goals: - You have been started on Ceftriaxone 2g IV per day to complete on 04/17/2025. Please see your PCP to remove PICC line after. - Continue the rest of your medications as before. - Follow up with your primary care physician within 1 week of discharge. If you do not have a primary care physician, please follow up with the [facility] Residents clinic ([phone]) ? If you experience any new, worsening or persistent symptoms either call your primary doctor, or dial 911 or present to the emergency department. Prescriptions/Referrals Prescriptions/Med Rec: New ceftriaxone 2 gram recon soln 2 g IV QDAY Continued losartan 50 mg Tablet 50 mg PO QDAY metformin 1,000 mg Tablet 1,000 mg PO BID Patient Comments: with a meal aspirin 81 mg Tablet 81 mg PO QDAY Patient Comments: low dose delayed release atorvastatin 20 mg tablet 20 mg PO DAILY naltrexone 50 mg tablet 50 mg PO QDAY Mounjaro 7.5 mg/0.5 mL pen injector 7.5 mg SUBCUT QWEEK Patient Comments: INJECT 7.5 MG SUBCUTANEOUSLY ONCE WEEKLY Rx Instructions: QT when 5mg runs out, start 7.5mg Last dose of 5mg 03/05/25, Starting 7.5mg next 03/12/25 ferrous sulfate [Feosol] 325 mg (65 mg iron) tablet 325 mg PO QDAY Rx Instructions: otc tamsulosin 0.4 mg capsule 0.4 mg PO DAILY Discontinued Mounjaro 5 mg/0.5 mL pen injector 5 mg subcut QWEEK Patient Comments: QT Referrals: Guillaume Hammer PA-C [Primary Care Provider] Patient/Caregiver Discharge Instructions Discharge Activity: activity as tolerated Education Materials: Chronic Prostatitis/Chronic ..., Bacterial Prostatitis, Caring for Your PICC Dc Print Language: Tuvaluan Stand Alone Forms: Valarie Award Info., Patient Portal Info Letter Discharge Order Discharge Orders: Discharge (Routine); Ordered 03/10/25 Ordered By: Chau Smith Quality Discharge Quality Measures VTE prophylaxis Attestestation MD Attestation I discussed with and supervised the resident physician who took care of this patient. I agree with the assessment and discharge plan as above. Follow-up with primary care provider. Return to the emergency room for recurrent symptoms
--- NOTE | 2025-03-11 10:20 | PC.CM ---
[facility] accepted patient and they will open on 03/11.
--- NOTE | 2025-03-11 11:03 | CHAP ---
Patient was visited by a Spiritual Care Volunteer on 03/10/2025 between 0850 and 1200 and received comfort, encouragement and/or prayer.
== END 2025-03-10 16:03 | disposition home health service (06) | DRG 690 ==
LOC: SERX 22:50 → SERHOLD 23:12 → S3SX 23:51
PROVIDERS: Registered Nurse General Practice; Admitting Provider Student in an Organized Health Care Education/Training Program; Emergency Provider Family Medicine; PCP Physician Assistant Medical; Visit Provider Internal Medicine
DX: N39.0 Urinary tract infection, site not specified (principal); Z16.23 Resistance to quinolones and fluoroquinolones; Z16.24 Resistance to multiple antibiotics; I10 Essential (primary) hypertension; E11.9 Type 2 diabetes mellitus without complications; E78.5 Hyperlipidemia, unspecified; Z79.84 Long term (current) use of oral hypoglycemic drugs; F10.10 Alcohol abuse, uncomplicated; N40.0 Benign prostatic hyperplasia without lower urinary tract symptoms; B96.20 Unspecified Escherichia coli [E. coli] as the cause of diseases classified elsewhere; N41.1 Chronic prostatitis; F17.200 Nicotine dependence, unspecified, uncomplicated; Z79.85 Long-term (current) use of injectable non-insulin antidiabetic drugs; Z87.440 Personal history of urinary (tract) infections; Z79.899 Other long term (current) drug therapy
CPT/HCPCS: 36415; 80053; 80061; 81001; 83036; 83605; 83615; 83690; 83735; 83880; 84100; 84145; 84484; 85025; 85610; 85730; 86703; 86780; 87040; 87077; 87086; 87186; 87491; 87591; 87661; 93005; 96361; 96365; 99284; C1751; C1894; J0131; J0696; J1642; J1650; J2470; J3475; J3490; J7050; J7120; A9270